=== PATIENT | male | born 1980 | race Two or more races ===

== ENCOUNTER 2019-06-10 12:42 | Outpatient (CLI) | payer OTHER | END 2019-06-10 12:43 | disposition home or self-care (01) | LOC: RT 12:42 | PROVIDERS: ATTEND Internal Medicine | DX: J44.9 Chronic obstructive pulmonary disease, unspecified (principal) | CPT/HCPCS: 94010 ==

== ENCOUNTER 2019-06-10 12:55 | Outpatient (CLI) | payer OTHER ==
--- NOTE | 2019-06-11 10:40 | XRAY Report ---
Reason: CHRONIC OBSTRUCTIVE PULMONARY DISEASE Procedure Date: 06/10/2019 Accession Number: [id number] / [id number] Procedure: XR - Chest 2 View X-Ray CPT Code: 28769 Final Report FULL RESULT: EXAM: CHEST RADIOGRAPHY EXAM DATE: 06/10/2019 02:32 PM. CLINICAL HISTORY: CHRONIC OBSTRUCTIVE PULMONARY DISEASE. Wheezing and crackling for 1 year, worse at night. COMPARISON: None. TECHNIQUE: 2 views. FINDINGS: Lungs/Pleura: No focal opacities evident. No peribronchial cuffing or interstitial abnormality. No pleural effusion. No pneumothorax. Normal volumes. Mediastinum: Heart and mediastinal contours are unremarkable. Other: None. IMPRESSION: Normal 2-view chest radiography. [facility]
== END 2019-06-10 12:56 | disposition home or self-care (01) ==
LOC: DI 12:55
PROVIDERS: ATTEND Internal Medicine
DX: J44.9 Chronic obstructive pulmonary disease, unspecified (principal)
CPT/HCPCS: 71046

== ENCOUNTER 2020-08-09 13:32 | Outpatient (CLI) | payer OTHER | END 2020-08-09 13:33 | disposition home or self-care (01) | LOC: COV 13:32 | PROVIDERS: ATTEND Family Medicine | DX: Z20.822 Contact with and (suspected) exposure to COVID-19 (principal) ==

== ENCOUNTER 2020-11-03 14:33 | Emergency (ER) | payer OTHER ==
[2020-11-03] MEDS ORDERED: KETOROLAC 60 MG/2 ML VIAL IM STA (14:49)
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
--- NOTE | 2020-11-03 15:16 | XRAY Report ---
PROCEDURE: Knee 3 View RT INDICATIONS: effusion;pain bilaterally after twisting TECHNIQUE: 3 views of the right knee(s) were acquired. COMPARISON: None. FINDINGS: Bones: No fractures or dislocations. No suspicious bony lesions. Soft tissues: Small suprapatellar joint effusion. No suspicious soft tissue calcifications. IMPRESSION: Small suprapatellar joint effusion, no acute trauma found to the osseous structures. Int ernal derangement may be present, follow-up by MR scanning may become necessary. Reviewed by: Tony Damian MD on 11/03/2020 3:14 PM PDT Approved by: Tony Damian MD on 11/03/2020 3:14 PM PDT Station ID: [id number]
[2020-11-03 15:38] VITALS: BP 109/77
== END 2020-11-03 15:40 | disposition home or self-care (01) ==
LOC: ED 14:33
DX: S83.91XA Sprain of unspecified site of right knee, initial encounter (principal); V18.0XXA Pedal cycle driver injured in noncollision transport accident in nontraffic accident, initial encounter; Y93.55 Activity, bike riding; Y92.830 Public park as the place of occurrence of the external cause; F17.200 Nicotine dependence, unspecified, uncomplicated
CPT/HCPCS: 96372; 99283

== ENCOUNTER 2021-04-13 15:35 | Outpatient (CLI) | payer OTHER | END 2021-04-13 15:36 | disposition critical access hospital (66) | LOC: EMS 15:35 | DX: R44.8 Other symptoms and signs involving general sensations and perceptions (principal) | CPT/HCPCS: A0425; A0429 ==

== ENCOUNTER 2021-04-13 16:10 | Inpatient (IN) | payer OTHER, MEDICAID ==
--- NOTE | 2021-04-13 16:17 | ED Physician Documentation ---
History of Present Illness - Stated complaint Stated Complaint: INJURY - History obtained from History obtained from: EMS - Additonal information Additional information: 41-year-old gentleman presents by ambulance for odd behavior. Was reporting the acting very strange and running around neighborhoods and subsequently was sleeping in the grass. Admitted to EMS to the use of heroin and fentanyl. He is less responsive for me so minimal history available from the patient. Review of Systems Unable to obtain: Confused PD PAST MEDICAL HISTORY - Past Surgical History Past Surgical History: Yes - Present Medications Home Medications: Ambulatory Orders Medication Instructions Recorded Confirmed Home Medications Unobtainable 04/13/21 04/13/21 [HOME MEDICATIONS UNOBTAINABLE] - Allergies Allergies/Adverse Reactions: Allergies Allergy/AdvReac Type Severity Reaction Status Date / Time No Known Drug Allergies Allergy Verified 11/03/20 14:36 - Social History Does the pt smoke?: Yes Smoking Status: Current every day smoker Does the pt drink ETOH?: Yes Does the pt have substance abuse?: No - Immunizations Immunizations are current?: Yes - POLST Patient has POLST: No PD ED PE NORMAL - Vitals Vital signs reviewed: Yes - General General: Other (He is somnolent but twitchy at the same time. He will open his eyes and follow commands and state his name, otherwise is disoriented.) - HEENT HEENT: Other (Slightly small pupils but reactive, not pinpoint.) - Neck Neck: Supple, no meningeal sign, No bony TTP - Cardiac Cardiac: RRR, No murmur - Respiratory Respiratory: No respiratory distress, Clear bilaterally - Abdomen Abdomen: Normal bowel sounds, Soft, Non tender - Back Back: No CVA TTP, No spinal TTP - Derm Derm: Normal color, Warm and dry - Neuro Eye Opening: To Voice Motor: Obeys Commands Verbal: Confused GCS Score: 13 Results - Vitals Vitals: Vital Signs - 24 hr 04/13/21 04/13/21 04/13/21 16:17 17:00 18:05 Temperature 36.7 C Heart Rate 92 70 70 Respiratory 14 16 16 Rate Blood Pressure 115/76 122/78 116/79 O2 Saturation 100 98 98 04/13/21 18:12 Temperature Heart Rate 77 Respiratory 18 Rate Blood Pressure 116/79 O2 Saturation 98 Oxygen O2 Source Room air - EKG (time done) 1625 Rate: Rate (enter#) (82) Rhythm: NSR [place]: Normal Intervals: Normal [place]. No: Prolonged QT (432) QRS: Normal Computer interpretation: Agree with computer - Labs Labs: Laboratory Tests 04/13/21 04/13/21 04/13/21 16:23 16:23 16:23 WBC 9.8 RBC 4.41 L Hgb 13.7 L Hct 40.3 L MCV 91.4 MCH 31.1 H MCHC 34.0 RDW 12.5 Plt Count 306 MPV 8.9 Neut # (Auto) 8.8 H Lymph # (Auto) 0.5 L Hopkins # (Auto) 0.4 Eos # (Auto) 0.0 Baso # (Auto) 0.0 Absolute Nucleated RBC 0.00 Nucleated RBC % 0.0 Sodium 138 Potassium 3.5 Chloride 103 Carbon Dioxide 23 Anion Gap 12.0 BUN 18 Creatinine 0.8 Estimated GFR (MDRD) 106 Glucose 108 H Calcium 9.3 Total Bilirubin 1.9 H AST 32 ALT 20 Alkaline Phosphatase 64 Total Protein 7.6 Albumin 4.0 Globulin 3.6 Albumin/Globulin Ratio 1.1 Lipase 24 TSH 0.18 L Thyroxine (T4) Free T3 pg/mL Nasal Adenovirus (PCR) Nasal B. parapertussis DNA (PCR) Nasal Coronavir 229E PCR Nasal Coronavir HKU1 PCR Nasal Coronavir NL63 PCR Nasal Coronavir OC43 PCR Nasal Enterovir/Rhinovir PCR Nasal Influenza B PCR Nasal Influenza A PCR Nasal Parainfluen 1 PCR Nasal Parainfluen 2 PCR Nasal Parainfluen 3 PCR Nasal Parainfluen 4 PCR Nasal RSV (PCR) Nasal B.pertussis DNA PCR Nasal C.pneumoniae (PCR) Alejandro Human Metapneumo PCR Nasal M.pneumoniae (PCR) Nasal SARS-CoV-2 (PCR) Salicylates < 6.0 Acetaminophen < 10 L Ethyl Alcohol < 5.0 04/13/21 04/13/21 16:35 16:42 WBC RBC Hgb Hct MCV MCH MCHC RDW Plt Count MPV Neut # (Auto) Lymph # (Auto) Hopkins # (Auto) Eos # (Auto) Baso # (Auto) Absolute Nucleated RBC Nucleated RBC % Sodium Potassium Chloride Carbon Dioxide Anion Gap BUN Creatinine Estimated GFR (MDRD) Glucose Calcium Total Bilirubin AST ALT Alkaline Phosphatase Total Protein Albumin Globulin Albumin/Globulin Ratio Lipase TSH Thyroxine (T4) 9.95 Free T3 pg/mL 3.62 Nasal Adenovirus (PCR) NOT DETECTED Nasal B. parapertussis DNA (PCR) NOT DETECTED Nasal Coronavir 229E PCR NOT DETECTED Nasal Coronavir HKU1 PCR NOT DETECTED Nasal Coronavir NL63 PCR NOT DETECTED Nasal Coronavir OC43 PCR NOT DETECTED Nasal Enterovir/Rhinovir PCR NOT DETECTED Nasal Influenza B PCR NOT DETECTED Nasal Influenza A PCR NOT DETECTED Nasal Parainfluen 1 PCR NOT DETECTED Nasal Parainfluen 2 PCR NOT DETECTED Nasal Parainfluen 3 PCR NOT DETECTED Nasal Parainfluen 4 PCR NOT DETECTED Nasal RSV (PCR) NOT DETECTED Nasal B.pertussis DNA PCR NOT DETECTED Nasal C.pneumoniae (PCR) NOT DETECTED Alejandro Human Metapneumo PCR NOT DETECTED Nasal M.pneumoniae (PCR) NOT DETECTED Nasal SARS-CoV-2 (PCR) NOT DETECTED Salicylates Acetaminophen Ethyl Alcohol PD MEDICAL DECISION MAKING - ED course ED course: 41-year-old gentleman presents by ambulance with altered mental status, likely related to drug use. During the first few hours of his stay he started to look like he was going into narcotic withdrawal with increased twitchiness, vomiting. Complains of allover pain. No specific spots of pain. Pupils became dilated. He did become more responsive though. He is interested in going to detox tomorrow. Departure - Departure Clinical Impression: Substance abuse Drug overdose Qualifiers: Encounter type: initial encounter Injury intent: accidental or unintentional Qualified Code(s): T50.901A - Poisoning by unspecified drugs, medicaments and biological substances, accidental (unintentional), initial encounter Condition: Stable Record reviewed to determine appropriate education?: Yes Instructions: ED Drug Abuse General
[2021-04-13 16:27] LABS: BASOPHILS % (AUTO) 0.1 %; EOSINOPHILS % (AUTO) 0.1 %; HCT - HEMATOCRIT 40.3 % (42.0-52.0); HGB - HEMOGLOBIN 13.7 g/dL (14.0-18.0); LYMPHOCYTES # (AUTO) 0.5 10^3/uL (1.5-3.5); LYMPHOCYTES % (AUTO) 5.3 %; MEAN CORPUSCULAR HEMOGLOBIN 31.1 pg (27.0-31.0); MEAN CORPUSCULAR VOLUME 91.4 fL (80.0-94.0); MEAN PLATELET VOLUME 8.9 fL (7.4-11.4); MONOCYTES # (AUTO) 0.4 10^3/uL (0.0-1.0); MONOCYTES % (AUTO) 3.8 %; NEUTROPHILS # (AUTO) 8.8 10^3/uL (1.5-6.6); NEUTROPHILS % (AUTO) 90.4 %; PLT - PLATELET COUNT 306 10^3/uL (130-450); RED BLOOD COUNT 4.41 10^6/uL (4.70-6.10); RED CELL DISTRIBUTION WIDTH 12.5 % (12.0-15.0); WHITE BLOOD COUNT 9.8 x10^3/uL (4.8-10.8)
[2021-04-13 16:46] LABS: ACETAMINOPHEN < 10 ug/mL (10-30); ALBUMIN/GLOBULIN RATIO 1.1 (1.0-2.2); ALKALINE PHOSPHATASE 64 IU/L (42-121); ALT ALANINE AMINOTRANSFERASE 20 IU/L (10-60); AST ASPARTATE AMINOTRANSFERASE 32 IU/L (10-42); BILIRUBIN,TOTAL 1.9 mg/dL (0.2-1.0); BUN - BLOOD UREA NITROGEN 18 mg/dL (6-20); CALCIUM 9.3 mg/dL (8.5-10.3); CARBON DIOXIDE - CO2 23 mmol/L (21-32); CHLORIDE 103 mmol/L (101-111); CREATININE 0.8 mg/dL (0.6-1.2); ETOH - ETHANOL < 5.0 mg/dL; GFR - MDRD 106 (>89); GLUCOSE 108 mg/dL (70-100); LIPASE 24 U/L (22-51); POTASSIUM 3.5 mmol/L (3.5-5.0); SALICYLATE < 6.0 mg/dL; SODIUM 138 mmol/L (135-145); TOTAL PROTEIN 7.6 g/dL (6.7-8.2)
[2021-04-13 17:29] LABS: B. PARAPERTUSSIS- RESP PCR PAN NOT DETECTED; B. PERTUSSIS- RESP PCR PANEL NOT DETECTED; C. PNEUMONIAE- RESP PCR PANEL NOT DETECTED; CORONAVIRUS 229E-RESP PCR NOT DETECTED; CORONAVIRUS HKU1-RESP PCR NOT DETECTED; CORONAVIRUS NL63-RESP PCR NOT DETECTED; CORONAVIRUS OC43-RESP PCR NOT DETECTED; HUMAN METAPNEUMOVIRUS NOT DETECTED; INFLUENZA A- RESP PCR PANEL NOT DETECTED; INFLUENZA B - RESP PCR PANEL NOT DETECTED; M. PNEUMONIAE- RESP PCR PANEL NOT DETECTED; PARAINFLUENZA VIRUS 1 NOT DETECTED; PARAINFLUENZA VIRUS 2 NOT DETECTED; PARAINFLUENZA VIRUS 3 NOT DETECTED; PARAINFLUENZA VIRUS 4 NOT DETECTED; RHINOVIRUS/ENTEROVIRUS NOT DETECTED; RSV- RESP PCR PANEL NOT DETECTED; SARS-CoV-2 -RESP PCR PANEL NOT DETECTED
[2021-04-13 18:04] LABS: T4 (THYROXINE) 9.95 ug/dL (6.09-12.23)
[2021-04-13 18:08] LABS: FREE T3 3.62 pg/mL (2.5-3.9)
[2021-04-13] MEDS ORDERED: LORazepam 2 MG/ML VIAL IM STA (18:31)
[2021-04-13] MEDS ORDERED: ONDANSETRON 4 MG/2 ML VIAL IM STA (19:52)
[2021-04-13] MEDS ORDERED: PROMETHAZINE 12.5 MG SUPP PR STA (20:44)
[2021-04-13] MEDS ORDERED: PROMETHAZINE 25 MG/1 ML VIAL IM STA (20:50)
[2021-04-13] MEDS ORDERED: HALOPERIDOL 5 MG/ML VIAL IM STA (22:47)
--- NOTE | 2021-04-13 22:48 | ED Physician Documentation ---
ED Addendum - Addendum Addendum: 04/13/21 22:47 Patient has had nausea and intermittent agitation over the past couple hours, likely experiencing substance withdrawal. Tried zofran, promethazine without relief. Will trial haldol for antiemetic properties. patient agreeable. 04/13/21 22:55 Patient's called SYLVIE Benitez and confirmed he is on fentanyl, meth, heroin, has been on the streets the past couple days because she kicked him out. She also reported he may have told his mother he felt like taking his life. At baseline he also sometimes has hallucinations. patient is intoxicated at present, not endorsing SI/HI/AVH. will continue to monitor. 04/14/21 02:30 Patient with persistent agitation, difficulty redirecting. wandering the halls, taking clothes off. Offered and accepted oral versed however patient was still agitated and escalating with staff requiring physical restraint followed by chemical sedation with ketamine. will continue to monitor. 04/14/21 02:52 Patient still uncomfortable, intermittently struggling in restraints despite 10mg oral versed and 200mg IM ketamine. will give additional IM zyprexa. 04/14/21 02:59 04/14/21 05:32 Patient actively hallucinating, agitated. sedation appears to have worn off again. agitation refractory to verbal coaching and environmental modification. plan to provide IM ketamine 300IM. will obtain repeat bmp and ck, iv access given his heightened alertness all night. 04/14/21 06:41 Patient with elevated temp and CK. d/w poison control center in regards to hyperpyrexia. Tox agrees it sounds like classic meth rhabdomyolysis, less likely NMS or malignant hyperthermia. recommend we continue cooling ice, IVF, PRN benzodiazepines. d/w Dr. Lieberman, wireless communications engineer internal control specialist who recommends IV ativan and to consider giving double the dose each time redosing until patient has clinical response. 04/14/21 06:56 04/18/21 22:37 Dispo: admit to [facility] MICU Impression 1. acute rhabdomyolysis 2. polysubstance abuse
[2021-04-14] MEDS ORDERED: LORazepam 2 MG/ML VIAL IM STA (01:21)
[2021-04-14 01:29] LABS: MUDS CUTOFF CONCENTRATIONS CUTOFF CONC BELOW:
[2021-04-14 01:31] LABS: GLUCOSE, URINE (UA) NEGATIVE (NEGATIVE); KETONES,URINE (UA) >=80 mg/dL (NEGATIVE); LEUKOCYTE ESTERASE, URINE NEGATIVE (NEGATIVE); NITRITE,URINE NEGATIVE (NEGATIVE); OCCULT BLOOD,URINE NEGATIVE (NEGATIVE); PROTEIN,URINE TRACE mg/dL (NEGATIVE); UROBILINOGEN,URINE 1 (NORMAL) E.U./dL (NORMAL)
[2021-04-14 01:34] LABS: BILIRUBIN,URINE NEGATIVE (NEGATIVE); CLARITY,URINE CLEAR (CLEAR); ICTOTEST,URINE NEGATIVE
[2021-04-14 01:42] LABS: COCAINE SCREEN URINE POSITIVE (NEGATIVE)
[2021-04-14 01:43] LABS: AMPHETAMINE SCREEN,URINE POSITIVE (NEGATIVE); BARBITURATE SCREEN,UR NEGATIVE (NEGATIVE); BENZODIAZEPINES SCREEN, URINE NEGATIVE (NEGATIVE); METHADONE SCREEN, URINE NEGATIVE (NEGATIVE); METHAMPHETAMINES SCREEN, URINE POSITIVE (NEGATIVE); OPIATE SCREEN, URINE POSITIVE (NEGATIVE); OXYCODONE SCREEN, URINE NEGATIVE (NEGATIVE); PROPOXYPHENE SCREEN, URINE NEGATIVE (NEGATIVE); THC CANNABINOID SCREEN, URINE NEGATIVE (NEGATIVE); TRICYCLIC ANTIDEPRESSANT,URINE NEGATIVE (NEGATIVE)
[2021-04-14] MEDS ORDERED: MIDAZOLAM 10 MG/5 ML UDC PO STA (02:06)
[2021-04-14] MEDS ORDERED: KETAMINE 500 MG/10 ML VIAL IM STA ×3 (02:22→05:02)
[2021-04-14] MEDS ORDERED: KETAMINE 500 MG/10 ML VIAL ONE (02:27)
--- NOTE | 2021-04-14 02:30 | ED Physician Documentation ---
Face to Face for Restraints - Immediate Situation Face to Face Evaluation Date: 04/14/21 Face to Face Evaluation Time: 02:25 Restraint Situation: Physical Hold, Chemical Patient's Reactions to the Intervention: Physically safe, Resting quietly - Behavioral Condition Attitude: Guarded, Other (intoxicated, agitated) Behavior: Uncooperative, Agitated, Withdrawn Orientation: Not oriented to person, place, time, and situation Mood: Labile, Other (agitated) - Evaluation Review of Systems: Unable to obtain ROS 2/2 patient intoxication with methamphetamine Pertinent History/Illicit Drugs/Medications/Results: history of methamphetamine, cocaine, opiates - Plan Need to Continue or Terminate Violent or Chemical Restraint: Continue restraints, monitor patient.
[2021-04-14] MEDS ORDERED: OLANZapine 10 MG VIAL IM STA (02:59)
[2021-04-14] MEDS ORDERED: LORazepam 2 MG/ML VIAL IVP STA (05:53)
[2021-04-14] MEDS ORDERED: SODIUM CHLORIDE 0.9% 1,000 ML IV STA (05:54)
[2021-04-14 06:07] LABS: CALCIUM 9.5 mg/dL (8.5-10.3); CREATININE 1.1 mg/dL (0.6-1.2); POTASSIUM 3.9 mmol/L (3.5-5.0)
[2021-04-14] MEDS ORDERED: SODIUM CHLORIDE 0.9% 1,000 ML IV ONE (07:26)
[2021-04-14] MEDS ORDERED: ONDANSETRON 4 MG/2 ML VIAL IVP PRN (07:26)
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
[2021-04-14] MEDS: LORazepam 100MG/100ML D5W 100 ML IV SCH (09:05)
[2021-04-14] MEDS: SODIUM CHLORIDE 0.9% 1,000 ML IV SCH ×3 (10:05→22:23)
[2021-04-14] MEDS: SODIUM CHLORIDE FLUSH 0.9% 10 ML SYRINGE IVP SCH ×2 (10:11→18:11)
[2021-04-14] MEDS: NICOTINE 21 MG PATCH TOP SCH (20:11)
[2021-04-14] MEDS ORDERED: DEXMEDETOMIDINE 400 MCG/100 ML 100 ML IV SCH (21:00)
[2021-04-15] MEDS: SODIUM CHLORIDE FLUSH 0.9% 10 ML SYRINGE IVP SCH ×3 (02:26→17:43)
[2021-04-15] MEDS: LORazepam 100MG/100ML D5W 100 ML IV SCH (03:08)
[2021-04-15] MEDS: SODIUM CHLORIDE 0.9% 1,000 ML IV SCH ×3 (04:54→18:16)
[2021-04-15 06:14] LABS: BASOPHILS % (AUTO) 0.2 %; EOSINOPHILS % (AUTO) 0.2 %; HCT - HEMATOCRIT 43.8 % (42.0-52.0); HGB - HEMOGLOBIN 14.4 g/dL (14.0-18.0); LYMPHOCYTES # (AUTO) 1.3 10^3/uL (1.5-3.5); LYMPHOCYTES % (AUTO) 13.4 %; MEAN CORPUSCULAR HEMOGLOBIN 30.8 pg (27.0-31.0); MEAN CORPUSCULAR HGB CONC 32.9 g/dL (32.0-36.0); MEAN CORPUSCULAR VOLUME 93.8 fL (80.0-94.0); MONOCYTES # (AUTO) 0.8 10^3/uL (0.0-1.0); MONOCYTES % (AUTO) 8.1 %; NEUTROPHILS # (AUTO) 7.5 10^3/uL (1.5-6.6); NEUTROPHILS % (AUTO) 77.8 %; PLT - PLATELET COUNT 290 10^3/uL (130-450); RED BLOOD COUNT 4.67 10^6/uL (4.70-6.10); RED CELL DISTRIBUTION WIDTH 12.8 % (12.0-15.0); WHITE BLOOD COUNT 9.6 x10^3/uL (4.8-10.8)
[2021-04-15 06:33] LABS: CALCIUM 8.6 mg/dL (8.5-10.3); CREATININE 0.7 mg/dL (0.6-1.2); POTASSIUM 3.7 mmol/L (3.5-5.0)
--- NOTE | 2021-04-15 08:16 | PROVIDER PROGRESS NOTE ---
Assessment/Plan - Problem List (1) Intoxication by drug Assessment/Plan: Patient has been calmer today. He is currently on Ativan drip and sedate. However soft restraints are continued because he is intermittently agitated. He was also started on Precedex which had to be discontinued because of significant sinus bradycardia. Once medically stable patient would need to be evaluated by DCR for possible nesha cement at [facility] facility. (2) Rhabdomyolysis Assessment/Plan: Likely secondary to IV drug abuse. Toxicology was positive for methamphetamine, heroin and cocaine. This is likely further compounded by patient's agitative state. Creatine kinase was slightly worse today at 3200. We will continue IV hydration with normal saline at 150 mL/h. - Current Meds Current Meds: Current Medications Generic Name Dose Route Start Last Admin Trade Name Freq PRN Reason Stop Dose Admin Sodium Chloride 1,000 mls @ 150 mls/hr 04/14/21 08:00 04/15/21 07:00 Normal Saline 0.9% IV 150 mls/hr .Q6H40M BALTA Infusion Lorazepam 100 mls @ 0.794 mls/hr 04/14/21 09:00 04/15/21 07:00 Ativan IV 0.07 mg/kg/hr .Q72H BALTA 5.557 mls/hr Titration Protocol 0.01 MG/KG/HR Dexmedetomidine/Sodium Chloride 100 mls @ 3.7 mls/hr 04/14/21 21:00 04/15/21 05:55 Precedex Premix IV 0 mcg/kg/hr .Q27H2M BALTA 0 mls/hr Titration Protocol 0.2 MCG/KG/HR Nicotine 1 patch 04/14/21 20:02 04/14/21 20:11 Nicotine 21 Mg Patch TOP 1 patch DAILY BALTA Administration Sodium Chloride 10 ml 04/14/21 09:00 04/15/21 02:26 Sodium Chloride Flush 0.9% 10 Ml Syringe IVP Not Given 0100,0900,1700 BALTA - Lab Result Fish Bone Diagrams: 04/16/21 06:25 04/16/21 06:25 - Additional Planning My Orders: My Active Orders 04/14/21 07:26 Telemetry- [RC] Q4HR Ondansetron Inj [Zofran Inj] 4 mg IVP Q6HR PRN Sodium Chloride Flush 0.9% [Normal Saline Flush 0.9%] 10 ml IVP PRN PRN 04/14/21 07:27 Activity Orders [RC] Q2HR IO [RC] Q1H Initiate Bowel Care Protocol [RC] Q12H Initiate Flu Vaccine Screening [RC] ONCE Initiate Line Care Protocol [RC] QSHIFT Initiate Personal Care Protoco [RC] Q12H Initiate Pneumonia Vaccine Scr [RC] ONCE Vital Signs [RC] Q1H Code Status [OTHERS] Routine Condition of Patient [OTHERS] Routine DVT Prophylaxis [OTHERS] Routine 04/14/21 07:31 SCDs [RC] QSHIFT 04/14/21 08:00 Sodium Chloride 0.9% [Normal Saline 0.9%] 1,000 ml IV 150 mls/hr 04/14/21 09:00 LORazepam 100MG/100ML D5W [Ativan] 100 ml IV 0.01 mg/kg/hr Sodium Chloride Flush 0.9% [Normal Saline Flush 0.9%] 10 ml IVP 0100,0900,1700 04/14/21 10:06 Tobacco Cessation [RC] .ONCE 04/14/21 12:02 Initiate NonViolent Restraint [RC] .PerProtocol 04/16/21 05:00 BMP - BASIC METABOLIC PANEL [CHEM] DAILYLAB CBC - COMP BLD CT W/AUTO DIFF [HEME] DAILYLAB CK- CREATINE KINASE [CHEM] DAILYLAB 04/17/21 05:00 BMP - BASIC METABOLIC PANEL [CHEM] DAILYLAB CBC - COMP BLD CT W/AUTO DIFF [HEME] DAILYLAB CK- CREATINE KINASE [CHEM] DAILYLAB 04/18/21 05:00 BMP - BASIC METABOLIC PANEL [CHEM] DAILYLAB CBC - COMP BLD CT W/AUTO DIFF [HEME] DAILYLAB CK- CREATINE KINASE [CHEM] DAILYLAB 04/19/21 05:00 BMP - BASIC METABOLIC PANEL [CHEM] DAILYLAB CBC - COMP BLD CT W/AUTO DIFF [HEME] DAILYLAB Subjective - Subjective Patient Reports: Other (Has been much Colmer today. However he has been sleeping throughout the day. He is able to open his eyes to verbal stimuli but not able to respond to questions. He is still in soft restraints. He is also on sedation with Ativan.) Objective Vital Signs: Vital Signs - 24 hr 04/14/21 04/14/21 04/14/21 09:00 10:00 11:00 Temperature 37 C Heart Rate [ 99 82 81 Monitoring electrodes] Respiratory 29 H 26 H 22 Rate Blood Pressure 111/70 97/61 115/79 [Right Brachial artery] O2 Saturation 97 99 99 04/14/21 04/14/21 04/14/21 12:00 13:00 14:00 Temperature 36.9 C 37.7 C Heart Rate [ 70 72 68 Monitoring electrodes] Respiratory 24 24 22 Rate Blood Pressure 116/87 H 125/86 H 128/85 H [Right Brachial artery] O2 Saturation 100 100 100 04/14/21 04/14/21 04/14/21 15:00 16:00 17:00 Temperature 37.5 C Heart Rate [ 64 61 70 Monitoring electrodes] Respiratory 24 22 24 Rate Blood Pressure 124/77 117/79 120/84 H [Right Brachial artery] O2 Saturation 100 100 99 04/14/21 04/14/21 04/14/21 18:00 19:00 20:00 Temperature 37.3 C 37.3 C Heart Rate [ 96 87 76 Monitoring electrodes] Respiratory 30 H 26 H 30 H Rate Blood Pressure 106/78 114/78 131/82 H [Right Brachial artery] O2 Saturation 98 99 99 04/14/21 04/14/21 04/14/21 21:00 22:00 23:00 Temperature 36.9 C 37.9 C 36.2 C L Heart Rate [ 81 76 85 Monitoring electrodes] Respiratory 23 22 23 Rate Blood Pressure 112/78 120/82 H 137/93 H [Right Brachial artery] O2 Saturation 94 99 97 04/15/21 04/15/21 04/15/21 00:00 01:00 02:04 Temperature 37.6 C 37 C Heart Rate [ 55 L 62 65 Monitoring electrodes] Respiratory 21 31 H 25 H Rate Blood Pressure 128/86 H 108/63 100/87 H [Right Brachial artery] O2 Saturation 98 99 97 04/15/21 04/15/21 04/15/21 03:00 04:00 05:00 Temperature 36.5 C 36.6 C Heart Rate [ 81 45 L 44 L Monitoring electrodes] Respiratory 29 H 21 21 Rate Blood Pressure 121/82 H 116/56 L 117/59 L [Right Brachial artery] O2 Saturation 97 98 98 04/15/21 04/15/21 04/15/21 06:18 07:00 08:00 Temperature 36.2 C L Heart Rate [ 46 L 47 L 65 Monitoring electrodes] Respiratory 21 22 26 H Rate Blood Pressure 122/86 H 106/74 [Right Brachial artery] O2 Saturation 99 99 99 Oxygen O2 Source Room air I&O (Last 24 Hrs): Intake and Output Totals x24h 04/13/21 04/14/21 04/15/21 23:59 23:59 23:59 Intake Total 4072.574 1311.391 Output Total 1460 1350 Balance 2612.574 -38.609 General: Other (Somnolent. Sedated but opens eyes to verbal stimuli) HEENT: PERRLA, EOMI Neck: Supple, No JVD Neuro: Other (Sedate arousable to tactile stimuli, not oriented to place, time or reason,) Cardiovascular: Regular rate, No murmurs Respiratory: Chest non-tender, No respiratory distress, Breath sounds nml Abdomen: Normal bowel sounds, Soft, No tenderness Extremities: No clubbing, No cyanosis, No edema Comments/Notes: Extensive skin tattoos - Results Results: Laboratory Results WBC 9.6 x10^3/uL (4.8-10.8) 04/15/21 06:07 RBC 4.67 10^6/uL (4.70-6.10) L 04/15/21 06:07 Hgb 14.4 g/dL (14.0-18.0) 04/15/21 06:07 Hct 43.8 % (42.0-52.0) 04/15/21 06:07 MCV 93.8 fL (80.0-94.0) 04/15/21 06:07 MCH 30.8 pg (27.0-31.0) 04/15/21 06:07 MCHC 32.9 g/dL (32.0-36.0) 04/15/21 06:07 RDW 12.8 % (12.0-15.0) 04/15/21 06:07 Plt Count 290 10^3/uL (130-450) 04/15/21 06:07 MPV 9.0 fL (7.4-11.4) 04/15/21 06:07 Neut # (Auto) 7.5 10^3/uL (1.5-6.6) H 04/15/21 06:07 Lymph # (Auto) 1.3 10^3/uL (1.5-3.5) L 04/15/21 06:07 Bell # (Auto) 0.8 10^3/uL (0.0-1.0) 04/15/21 06:07 Eos # (Auto) 0.0 10^3/uL (0.0-0.7) 04/15/21 06:07 Baso # (Auto) 0.0 10^3/uL (0.0-0.1) 04/15/21 06:07 Absolute Nucleated RBC 0.00 x10^3/uL 04/15/21 06:07 Nucleated RBC % 0.0 /100WBC 04/15/21 06:07 Sodium 142 mmol/L (135-145) 04/15/21 06:07 Potassium 3.7 mmol/L (3.5-5.0) 04/15/21 06:07 Chloride 109 mmol/L (101-111) 04/15/21 06:07 Carbon Dioxide 23 mmol/L (21-32) 04/15/21 06:07 Anion Gap 10.0 (6-13) 04/15/21 06:07 BUN 13 mg/dL (6-20) 04/15/21 06:07 Creatinine 0.7 mg/dL (0.6-1.2) 04/15/21 06:07 Estimated GFR (MDRD) 123 (>89) 04/15/21 06:07 Glucose 110 mg/dL (70-100) H 04/15/21 06:07 Calcium 8.6 mg/dL (8.5-10.3) 04/15/21 06:07 Total Bilirubin 1.9 mg/dL (0.2-1.0) H 04/13/21 16:23 AST 32 IU/L (10-42) 04/13/21 16:23 ALT 20 IU/L (10-60) 04/13/21 16:23 Alkaline Phosphatase 64 IU/L (42-121) 04/13/21 16:23 Total Creatine Kinase 3205 IU/L (22-269) H* 04/15/21 06:07 Total Protein 7.6 g/dL (6.7-8.2) 04/13/21 16:23 Albumin 4.0 g/dL (3.2-5.5) 04/13/21 16:23 Globulin 3.6 g/dL (2.1-4.2) 04/13/21 16:23 Albumin/Globulin Ratio 1.1 (1.0-2.2) 04/13/21 16:23 Lipase 24 U/L (22-51) 04/13/21 16:23 TSH 0.18 uIU/mL (0.34-5.60) L 04/13/21 16:23 Thyroxine (T4) 9.95 ug/dL (6.09-12.23) 04/13/21 16:42 Free T3 pg/mL 3.62 pg/mL (2.5-3.9) 04/13/21 16:42 Urine Color DK. ORANGE 04/14/21 01:24 Urine Clarity CLEAR (CLEAR) 04/14/21 01:24 Urine pH 6.0 PH (5.0-7.5) 04/14/21 01:24 Ur Specific [place] >=1.030 (1.002-1.030) H 04/14/21 01:24 Urine Protein TRACE mg/dL (NEGATIVE) 04/14/21 01:24 Urine Glucose (UA) NEGATIVE mg/dL (NEGATIVE) 04/14/21 01:24 Urine Ketones >=80 mg/dL (NEGATIVE) H 04/14/21 01:24 Urine Occult Blood NEGATIVE (NEGATIVE) 04/14/21 01:24 Urine Nitrite NEGATIVE (NEGATIVE) 04/14/21 01:24 Urine Bilirubin NEGATIVE (NEGATIVE) 04/14/21 01:24 Urine Urobilinogen 1 (NORMAL) E.U./dL (NORMAL) 04/14/21 01:24 Ur Leukocyte Esterase NEGATIVE (NEGATIVE) 04/14/21 01:24 Ur Microscopic Review NOT INDICATED 04/14/21 01:24 Urine Culture Comments NOT INDICATED 04/14/21 01:24 Nasal Adenovirus (PCR) NOT DETECTED 04/13/21 16:35 Nasal B. parapertussis DNA (PCR) NOT DETECTED 04/13/21 16:35 Nasal Coronavir 229E PCR NOT DETECTED 04/13/21 16:35 Nasal Coronavir HKU1 PCR NOT DETECTED 04/13/21 16:35 Nasal Coronavir NL63 PCR NOT DETECTED 04/13/21 16:35 Nasal Coronavir OC43 PCR NOT DETECTED 04/13/21 16:35 Nasal Enterovir/Rhinovir PCR NOT DETECTED 04/13/21 16:35 Nasal Influenza B PCR NOT DETECTED 04/13/21 16:35 Nasal Influenza A PCR NOT DETECTED 04/13/21 16:35 Nasal Parainfluen 1 PCR NOT DETECTED 04/13/21 16:35 Nasal Parainfluen 2 PCR NOT DETECTED 04/13/21 16:35 Nasal Parainfluen 3 PCR NOT DETECTED 04/13/21 16:35 Nasal Parainfluen 4 PCR NOT DETECTED 04/13/21 16:35 Nasal RSV (PCR) NOT DETECTED 04/13/21 16:35 Nasal Screen MRSA (PCR) NEGATIVE (NEGATIVE) 04/14/21 08:20 Nasal B.pertussis DNA PCR NOT DETECTED 04/13/21 16:35 Nasal C.pneumoniae (PCR) NOT DETECTED 04/13/21 16:35 Alejandro Human Metapneumo PCR NOT DETECTED 04/13/21 16:35 Nasal M.pneumoniae (PCR) NOT DETECTED 04/13/21 16:35 Nasal SARS-CoV-2 (PCR) NOT DETECTED 04/13/21 16:35 Salicylates < 6.0 mg/dL 04/13/21 16:23 Urine Opiates Screen POSITIVE (NEGATIVE) H 04/14/21 01:24 Ur Oxycodone Screen NEGATIVE (NEGATIVE) 04/14/21 01:24 Urine Methadone Screen NEGATIVE (NEGATIVE) 04/14/21 01:24 Ur Propoxyphene Screen NEGATIVE (NEGATIVE) 04/14/21 01:24 Acetaminophen < 10 ug/mL (10-30) L 04/13/21 16:23 Ur Barbiturates Screen NEGATIVE (NEGATIVE) 04/14/21 01:24 Ur Tricyclics Screen NEGATIVE (NEGATIVE) 04/14/21 01:24 Ur Phencyclidine Scrn NEGATIVE (NEGATIVE) 04/14/21 01:24 Ur Amphetamine Screen POSITIVE (NEGATIVE) H 04/14/21 01:24 U Methamphetamines Scrn POSITIVE (NEGATIVE) H 04/14/21 01:24 U Benzodiazepines Scrn NEGATIVE (NEGATIVE) 04/14/21 01:24 Urine Cocaine Screen POSITIVE (NEGATIVE) H 04/14/21 01:24 U Cannabinoids Screen NEGATIVE (NEGATIVE) 04/14/21 01:24 Ethyl Alcohol < 5.0 mg/dL 04/13/21 16:23 ABX Reporting Has patient been on IV antibiotics over the past 48 hours?: No
[2021-04-15] MEDS: NICOTINE 21 MG PATCH TOP SCH (09:12)
[2021-04-16] MEDS: LORazepam 100MG/100ML D5W 100 ML IV SCH ×2 (00:35→14:41)
[2021-04-16] MEDS: SODIUM CHLORIDE FLUSH 0.9% 10 ML SYRINGE IVP SCH ×3 (01:00→18:08)
[2021-04-16] MEDS: SODIUM CHLORIDE 0.9% 1,000 ML IV SCH ×4 (01:45→21:14)
[2021-04-16 06:55] LABS: BASOPHILS % (AUTO) 0.2 %; EOSINOPHILS % (AUTO) 0.1 %; HCT - HEMATOCRIT 39.4 % (42.0-52.0); HGB - HEMOGLOBIN 13.2 g/dL (14.0-18.0); LYMPHOCYTES # (AUTO) 1.1 10^3/uL (1.5-3.5); MEAN CORPUSCULAR HEMOGLOBIN 30.8 pg (27.0-31.0); MEAN CORPUSCULAR HGB CONC 33.5 g/dL (32.0-36.0); MEAN CORPUSCULAR VOLUME 92.1 fL (80.0-94.0); MEAN PLATELET VOLUME 9.2 fL (7.4-11.4); MONOCYTES # (AUTO) 0.7 10^3/uL (0.0-1.0); MONOCYTES % (AUTO) 7.3 %; NEUTROPHILS # (AUTO) 7.1 10^3/uL (1.5-6.6); NEUTROPHILS % (AUTO) 80.1 %; PLT - PLATELET COUNT 352 10^3/uL (130-450); RED BLOOD COUNT 4.28 10^6/uL (4.70-6.10); RED CELL DISTRIBUTION WIDTH 12.8 % (12.0-15.0); WHITE BLOOD COUNT 8.9 x10^3/uL (4.8-10.8)
[2021-04-16 07:21] LABS: CALCIUM 8.7 mg/dL (8.5-10.3); CREATININE 0.6 mg/dL (0.6-1.2); POTASSIUM 2.9 mmol/L (3.5-5.0)
[2021-04-16] MEDS ORDERED: SODIUM CHLORIDE 0.9% 500 ML IV ONE (07:35)
--- NOTE | 2021-04-16 07:43 | PROVIDER PROGRESS NOTE ---
Assessment/Plan - Problem List (1) Intoxication by drug Assessment/Plan: Continue Ativan drip. Plan would be to start titrating Ativan drip down to and wean off at midnight today. Continue soft restraints. DCR to evaluate patient tomorrow if creatinine kinase is lower. (2) Rhabdomyolysis Assessment/Plan: Likely secondary to IV drug abuse. Toxicology was positive for methamphetamine, heroin and cocaine. This is likely further compounded by patient's agitative state. Creatine kinase trend: 2752->3205->3584 500 bolus of normal saline administered. Continue normal saline at 150 mL/h afterwards. (3) Hypokalemia Assessment/Plan: Will replace and recheck. - Current Meds Current Meds: Current Medications Generic Name Dose Route Start Last Admin Trade Name Freq PRN Reason Stop Dose Admin Sodium Chloride 1,000 mls @ 150 mls/hr 04/14/21 08:00 04/16/21 06:00 Normal Saline 0.9% IV 150 mls/hr .Q6H40M BALTA Infusion Lorazepam 100 mls @ 0.794 mls/hr 04/14/21 09:00 04/16/21 06:55 Ativan IV 0.04 mg/kg/hr .Q72H BALTA 3 mls/hr Titration Protocol 0.01 MG/KG/HR Nicotine 1 patch 04/14/21 20:02 04/15/21 09:12 Nicotine 21 Mg Patch TOP 1 patch DAILY BALTA Administration Sodium Chloride 10 ml 04/14/21 09:00 04/16/21 01:00 Sodium Chloride Flush 0.9% 10 Ml Syringe IVP 10 ml 0100,0900,1700 BALTA Administration - Lab Result Fish Bone Diagrams: 04/16/21 06:25 04/16/21 06:25 - Additional Planning My Orders: My Active Orders 04/15/21 12:00 Initiate NonViolent Restraint [RC] .PerProtocol 04/16/21 07:35 0.9% NS 500ML BOLUS X1 Sodium Chloride 0.9% [Normal Saline 0.9%] 500 ml IV ONCE 04/16/21 07:36 MAGNESIUM [CHEM] Stat 04/16/21 07:37 Initiate ICU Electrolyte Prot. [RC] QSHIFT 04/16/21 08:00 Potassium Chloride/Water 10 mEq/100 mL q1h (Enter # of bags) Potassium Chlor 10 Meq/100 ml [Potassium Chloride] 10 meq in 100 ml IV Q1H 04/17/21 05:00 BMP - BASIC METABOLIC PANEL [CHEM] DAILYLAB CBC - COMP BLD CT W/AUTO DIFF [HEME] DAILYLAB CK- CREATINE KINASE [CHEM] DAILYLAB 04/18/21 05:00 BMP - BASIC METABOLIC PANEL [CHEM] DAILYLAB CBC - COMP BLD CT W/AUTO DIFF [HEME] DAILYLAB CK- CREATINE KINASE [CHEM] DAILYLAB 04/19/21 05:00 BMP - BASIC METABOLIC PANEL [CHEM] DAILYLAB CBC - COMP BLD CT W/AUTO DIFF [HEME] DAILYLAB Subjective - Subjective Patient Reports: Other (Somnolent with intermittent agitation. He will open his eyes to verbal stimuli. He continues to be in soft restraints and is on sedation with Ativan) Objective Vital Signs: Vital Signs - 24 hr 04/15/21 04/15/21 04/15/21 08:00 09:00 10:00 Temperature 36.2 C L Heart Rate [ 65 50 L 53 L Monitoring electrodes] Respiratory 26 H 21 26 H Rate Blood Pressure [Left brachial artery] Blood Pressure 109/74 149/86 H 114/81 H [Right Brachial artery] O2 Saturation 99 100 100 04/15/21 04/15/21 04/15/21 11:00 12:00 13:00 Temperature 36.8 C Heart Rate [ 69 60 48 L Monitoring electrodes] Respiratory 23 24 22 Rate Blood Pressure [Left brachial artery] Blood Pressure 121/71 110/73 148/79 H [Right Brachial artery] O2 Saturation 100 100 100 04/15/21 04/15/21 04/15/21 14:00 15:00 16:00 Temperature 36.8 C Heart Rate [ 66 57 L 48 L Monitoring electrodes] Respiratory 23 26 H 28 H Rate Blood Pressure [Left brachial artery] Blood Pressure 139/89 H 114/73 115/75 [Right Brachial artery] O2 Saturation 100 100 99 04/15/21 04/15/21 04/15/21 17:00 18:00 19:00 Temperature Heart Rate [ 66 55 L 60 Monitoring electrodes] Respiratory 26 H 30 H 28 H Rate Blood Pressure [Left brachial artery] Blood Pressure 111/75 99/59 L 132/76 H [Right Brachial artery] O2 Saturation 100 100 100 04/15/21 04/15/21 04/15/21 19:53 20:06 21:00 Temperature 37.2 C Heart Rate [ 82 48 L Monitoring electrodes] Respiratory 18 28 H Rate Blood Pressure 122/65 135/80 H [Left brachial artery] Blood Pressure [Right Brachial artery] O2 Saturation 100 04/15/21 04/15/21 04/16/21 22:00 23:00 00:00 Temperature 37.2 C Heart Rate [ 48 L 53 L 95 Monitoring electrodes] Respiratory 29 H 23 28 H Rate Blood Pressure 125/75 128/75 101/72 [Left brachial artery] Blood Pressure [Right Brachial artery] O2 Saturation 100 04/16/21 04/16/21 04/16/21 01:00 02:00 03:00 Temperature Heart Rate [ 71 70 55 L Monitoring electrodes] Respiratory 26 H 20 24 Rate Blood Pressure 112/78 123/79 [Left brachial artery] Blood Pressure [Right Brachial artery] O2 Saturation 100 93 100 04/16/21 04/16/21 04/16/21 04:00 05:00 06:00 Temperature Heart Rate [ 54 L 52 L 83 Monitoring electrodes] Respiratory 26 H 26 H 32 H Rate Blood Pressure 128/81 H 123/74 107/72 [Left brachial artery] Blood Pressure [Right Brachial artery] O2 Saturation 100 100 99 04/16/21 07:00 Temperature Heart Rate [ 53 L Monitoring electrodes] Respiratory 25 H Rate Blood Pressure 120/78 [Left brachial artery] Blood Pressure [Right Brachial artery] O2 Saturation 100 Oxygen O2 Source Room air I&O (Last 24 Hrs): Intake and Output Totals x24h 04/14/21 04/15/21 04/16/21 23:59 23:59 23:59 Intake Total 4072.574 4476.355 954.233 Output Total 1460 1920 250 Balance 2612.574 2556.355 704.233 General: Other Comments/Notes: General: Other (Somnolent. Sedated but opens eyes to verbal stimuli) HEENT: PERRLA, EOMI Neck: Supple, No JVD Neuro: Other (Sedate arousable to tactile stimuli, not oriented to place, time or reason,) Cardiovascular: Regular rate, No murmurs Respiratory: Chest non-tender, No respiratory distress, Breath sounds nml Abdomen: Normal bowel sounds, Soft, No tenderness Extremities: No clubbing, No cyanosis, No edema Comments/Notes: - Results Results: Laboratory Results WBC 8.9 x10^3/uL (4.8-10.8) 04/16/21 06:25 RBC 4.28 10^6/uL (4.70-6.10) L 04/16/21 06:25 Hgb 13.2 g/dL (14.0-18.0) L 04/16/21 06:25 Hct 39.4 % (42.0-52.0) L 04/16/21 06:25 MCV 92.1 fL (80.0-94.0) 04/16/21 06:25 MCH 30.8 pg (27.0-31.0) 04/16/21 06:25 MCHC 33.5 g/dL (32.0-36.0) 04/16/21 06:25 RDW 12.8 % (12.0-15.0) 04/16/21 06:25 Plt Count 352 10^3/uL (130-450) 04/16/21 06:25 MPV 9.2 fL (7.4-11.4) 04/16/21 06:25 Neut # (Auto) 7.1 10^3/uL (1.5-6.6) H 04/16/21 06:25 Lymph # (Auto) 1.1 10^3/uL (1.5-3.5) L 04/16/21 06:25 Sharkey # (Auto) 0.7 10^3/uL (0.0-1.0) 04/16/21 06:25 Eos # (Auto) 0.0 10^3/uL (0.0-0.7) 04/16/21 06:25 Baso # (Auto) 0.0 10^3/uL (0.0-0.1) 04/16/21 06:25 Absolute Nucleated RBC 0.00 x10^3/uL 04/16/21 06:25 Nucleated RBC % 0.0 /100WBC 04/16/21 06:25 Sodium 144 mmol/L (135-145) 04/16/21 06:25 Potassium 2.9 mmol/L (3.5-5.0) L 04/16/21 06:25 Chloride 109 mmol/L (101-111) 04/16/21 06:25 Carbon Dioxide 22 mmol/L (21-32) 04/16/21 06:25 Anion Gap 13.0 (6-13) 04/16/21 06:25 BUN 7 mg/dL (6-20) 04/16/21 06:25 Creatinine 0.6 mg/dL (0.6-1.2) 04/16/21 06:25 Estimated GFR (MDRD) 147 (>89) 04/16/21 06:25 Glucose 106 mg/dL (70-100) H 04/16/21 06:25 Calcium 8.7 mg/dL (8.5-10.3) 04/16/21 06:25 Total Bilirubin 1.9 mg/dL (0.2-1.0) H 04/13/21 16:23 AST 32 IU/L (10-42) 04/13/21 16:23 ALT 20 IU/L (10-60) 04/13/21 16:23 Alkaline Phosphatase 64 IU/L (42-121) 04/13/21 16:23 Total Creatine Kinase 3584 IU/L (22-269) H* 04/16/21 06:25 Total Protein 7.6 g/dL (6.7-8.2) 04/13/21 16:23 Albumin 4.0 g/dL (3.2-5.5) 04/13/21 16:23 Globulin 3.6 g/dL (2.1-4.2) 04/13/21 16:23 Albumin/Globulin Ratio 1.1 (1.0-2.2) 04/13/21 16:23 Lipase 24 U/L (22-51) 04/13/21 16:23 TSH 0.18 uIU/mL (0.34-5.60) L 04/13/21 16:23 Thyroxine (T4) 9.95 ug/dL (6.09-12.23) 04/13/21 16:42 Free T3 pg/mL 3.62 pg/mL (2.5-3.9) 04/13/21 16:42 Urine Color DK. ORANGE 04/14/21 01:24 Urine Clarity CLEAR (CLEAR) 04/14/21 01:24 Urine pH 6.0 PH (5.0-7.5) 04/14/21 01:24 Ur Specific [place] >=1.030 (1.002-1.030) H 04/14/21 01:24 Urine Protein TRACE mg/dL (NEGATIVE) 04/14/21 01:24 Urine Glucose (UA) NEGATIVE mg/dL (NEGATIVE) 04/14/21 01:24 Urine Ketones >=80 mg/dL (NEGATIVE) H 04/14/21 01:24 Urine Occult Blood NEGATIVE (NEGATIVE) 04/14/21 01:24 Urine Nitrite NEGATIVE (NEGATIVE) 04/14/21 01:24 Urine Bilirubin NEGATIVE (NEGATIVE) 04/14/21 01:24 Urine Urobilinogen 1 (NORMAL) E.U./dL (NORMAL) 04/14/21 01:24 Ur Leukocyte Esterase NEGATIVE (NEGATIVE) 04/14/21 01:24 Ur Microscopic Review NOT INDICATED 04/14/21 01:24 Urine Culture Comments NOT INDICATED 04/14/21 01:24 Nasal Adenovirus (PCR) NOT DETECTED 04/13/21 16:35 Nasal B. parapertussis DNA (PCR) NOT DETECTED 04/13/21 16:35 Nasal Coronavir 229E PCR NOT DETECTED 04/13/21 16:35 Nasal Coronavir HKU1 PCR NOT DETECTED 04/13/21 16:35 Nasal Coronavir NL63 PCR NOT DETECTED 04/13/21 16:35 Nasal Coronavir OC43 PCR NOT DETECTED 04/13/21 16:35 Nasal Enterovir/Rhinovir PCR NOT DETECTED 04/13/21 16:35 Nasal Influenza B PCR NOT DETECTED 04/13/21 16:35 Nasal Influenza A PCR NOT DETECTED 04/13/21 16:35 Nasal Parainfluen 1 PCR NOT DETECTED 04/13/21 16:35 Nasal Parainfluen 2 PCR NOT DETECTED 04/13/21 16:35 Nasal Parainfluen 3 PCR NOT DETECTED 04/13/21 16:35 Nasal Parainfluen 4 PCR NOT DETECTED 04/13/21 16:35 Nasal RSV (PCR) NOT DETECTED 04/13/21 16:35 Nasal Screen MRSA (PCR) NEGATIVE (NEGATIVE) 04/14/21 08:20 Nasal B.pertussis DNA PCR NOT DETECTED 04/13/21 16:35 Nasal C.pneumoniae (PCR) NOT DETECTED 04/13/21 16:35 Alejandro Human Metapneumo PCR NOT DETECTED 04/13/21 16:35 Nasal M.pneumoniae (PCR) NOT DETECTED 04/13/21 16:35 Nasal SARS-CoV-2 (PCR) NOT DETECTED 04/13/21 16:35 Salicylates < 6.0 mg/dL 04/13/21 16:23 Urine Opiates Screen POSITIVE (NEGATIVE) H 04/14/21 01:24 Ur Oxycodone Screen NEGATIVE (NEGATIVE) 04/14/21 01:24 Urine Methadone Screen NEGATIVE (NEGATIVE) 04/14/21 01:24 Ur Propoxyphene Screen NEGATIVE (NEGATIVE) 04/14/21 01:24 Acetaminophen < 10 ug/mL (10-30) L 04/13/21 16:23 Ur Barbiturates Screen NEGATIVE (NEGATIVE) 04/14/21 01:24 Ur Tricyclics Screen NEGATIVE (NEGATIVE) 04/14/21 01:24 Ur Phencyclidine Scrn NEGATIVE (NEGATIVE) 04/14/21 01:24 Ur Amphetamine Screen POSITIVE (NEGATIVE) H 04/14/21 01:24 U Methamphetamines Scrn POSITIVE (NEGATIVE) H 04/14/21 01:24 U Benzodiazepines Scrn NEGATIVE (NEGATIVE) 04/14/21 01:24 Urine Cocaine Screen POSITIVE (NEGATIVE) H 04/14/21 01:24 U Cannabinoids Screen NEGATIVE (NEGATIVE) 04/14/21 01:24 Ethyl Alcohol < 5.0 mg/dL 04/13/21 16:23 ABX Reporting Has patient been on IV antibiotics over the past 48 hours?: No
[2021-04-16] MEDS: NICOTINE 21 MG PATCH TOP SCH (07:52)
[2021-04-16] MEDS: POTASSIUM CHLOR 10 MEQ/100 ML 10 MEQ/100 ML BAG IV SCH ×9 (07:52→22:49)
[2021-04-16] MEDS ORDERED: OLANZapine 10 MG VIAL IM ONE (17:48)
[2021-04-17] MEDS: POTASSIUM CHLOR 10 MEQ/100 ML 10 MEQ/100 ML BAG IV SCH ×3 (00:08→02:32)
[2021-04-17] MEDS: SODIUM CHLORIDE FLUSH 0.9% 10 ML SYRINGE IVP SCH ×3 (02:32→17:30)
[2021-04-17] MEDS: SODIUM CHLORIDE 0.9% 1,000 ML IV SCH ×4 (03:56→23:51)
[2021-04-17 05:27] LABS: BASOPHILS % (AUTO) 0.2 %; EOSINOPHILS % (AUTO) 0.2 %; HCT - HEMATOCRIT 40.5 % (42.0-52.0); HGB - HEMOGLOBIN 13.5 g/dL (14.0-18.0); LYMPHOCYTES # (AUTO) 1.1 10^3/uL (1.5-3.5); LYMPHOCYTES % (AUTO) 12.7 %; MEAN CORPUSCULAR HEMOGLOBIN 30.5 pg (27.0-31.0); MEAN CORPUSCULAR HGB CONC 33.3 g/dL (32.0-36.0); MEAN CORPUSCULAR VOLUME 91.6 fL (80.0-94.0); MEAN PLATELET VOLUME 9.1 fL (7.4-11.4); MONOCYTES # (AUTO) 0.7 10^3/uL (0.0-1.0); NEUTROPHILS # (AUTO) 7.1 10^3/uL (1.5-6.6); NEUTROPHILS % (AUTO) 78.6 %; PLT - PLATELET COUNT 327 10^3/uL (130-450); RED BLOOD COUNT 4.42 10^6/uL (4.70-6.10); RED CELL DISTRIBUTION WIDTH 12.7 % (12.0-15.0)
[2021-04-17 05:34] LABS: CALCIUM, IONIZED 1.05 mmol/L (1.15-1.33); VBG PH 7.526 (7.31-7.41)
[2021-04-17 05:56] LABS: BUN - BLOOD UREA NITROGEN < 5 mg/dL (6-20); CALCIUM 8.5 mg/dL (8.5-10.3); CARBON DIOXIDE - CO2 24 mmol/L (21-32); CHLORIDE 107 mmol/L (101-111); CREATININE 0.5 mg/dL (0.6-1.2); GFR - MDRD 181 (>89); GLUCOSE 120 mg/dL (70-100); POTASSIUM 3.3 mmol/L (3.5-5.0); SODIUM 142 mmol/L (135-145)
[2021-04-17 05:59] LABS: MAGNESIUM 1.9 mg/dL (1.7-2.8); PHOSPHORUS 2.1 mg/dL (2.5-4.6)
[2021-04-17 06:07] LABS: CK- CREATINE KINASE 4569 IU/L (22-269)
[2021-04-17] MEDS ORDERED: CALCIUM GLUCONATE 1,000 MG in SODIUM CHLORIDE 0.9% 50 ML IV ONE (06:17)
[2021-04-17] MEDS: POTASSIUM CHLORIDE 20 MEQ TABLET PO SCH ×2 (06:57→10:39)
[2021-04-17] MEDS ORDERED: MAGNESIUM SULFATE 2 GRAM 2 GM/50 ML BAG IV ONE (08:07)
--- NOTE | 2021-04-17 08:09 | PROVIDER PROGRESS NOTE ---
Assessment/Plan - Problem List (1) Intoxication by drug Assessment/Plan: Ativan drip was weaned off this morning. Patient is intermittently agitated/belligerent and somnolent Continue soft restraints. 1:1 Obs ordered DCR to evaluate patient tomorrow if creatinine kinase is lower. (2) Rhabdomyolysis Assessment/Plan: Likely secondary to IV drug abuse. Toxicology was positive for methamphetamine, heroin and cocaine. This is likely further compounded by patient's agitative state. Creatine kinase trend: 2752->3205->3584->4569 Continue normal saline at 150 mL/h afterwards. (3) Hypokalemia Assessment/Plan: Will replace and recheck. - Current Meds Current Meds: Current Medications Generic Name Dose Route Start Last Admin Trade Name Freq PRN Reason Stop Dose Admin Sodium Chloride 1,000 mls @ 150 mls/hr 04/14/21 08:00 04/17/21 06:00 Normal Saline 0.9% IV 150 mls/hr .Q6H40M [facility] Infusion Lorazepam 100 mls @ 0.794 mls/hr 04/14/21 09:00 04/17/21 06:56 Ativan IV Infused .Q72H [facility] Titration Protocol 0.01 MG/KG/HR Nicotine 1 patch 04/14/21 20:02 04/16/21 07:52 Nicotine 21 Mg Patch TOP 1 patch DAILY [facility] Administration Potassium Chloride 20 meq 04/17/21 07:00 04/17/21 06:57 Potassium Chloride 20 Meq Tablet PO 04/17/21 09:01 20 meq Q2H [facility] Administration Protocol Sodium Chloride 10 ml 04/14/21 09:00 04/17/21 02:32 Sodium Chloride Flush 0.9% 10 Ml Syringe IVP 10 ml 0100,0900,1700 [facility] Administration - Lab Result Fish Bone Diagrams: 04/17/21 05:17 04/17/21 05:17 - Additional Planning My Orders: My Active Orders 04/16/21 07:37 Initiate ICU Electrolyte Prot. [RC] QSHIFT 04/17/21 07:00 Potassium Chloride [K-Dur] 20 meq PO Q2H 04/17/21 08:00 Neutra-Phos [K-Phos Neutral] 250 mg PO Q2H 04/17/21 08:07 MAGNESIUM SULFATE 2 GRAMS IV X1 Magnesium Sulfate 2 Gram [Magnesium Sulfate] 2 gm in 50 ml IV ONCE 04/18/21 05:00 BMP - BASIC METABOLIC PANEL [CHEM] DAILYLAB CALCIUM, IONIZED ([facility]) [BG] DAILYLAB CBC - COMP BLD CT W/AUTO DIFF [HEME] DAILYLAB CK- CREATINE KINASE [CHEM] DAILYLAB MAGNESIUM [CHEM] DAILYLAB PHOSPHORUS [CHEM] DAILYLAB 04/19/21 05:00 BMP - BASIC METABOLIC PANEL [CHEM] DAILYLAB CALCIUM, IONIZED ([facility]) [BG] DAILYLAB CBC - COMP BLD CT W/AUTO DIFF [HEME] DAILYLAB MAGNESIUM [CHEM] DAILYLAB PHOSPHORUS [CHEM] DAILYLAB Subjective - Subjective Patient Reports: Other (He slept for most of the morning but then woke up around noon and became significantly agitated. His agitation escalates intermittently. During those times he is verbally abusive to staff and spits caregivers) Objective Vital Signs: Vital Signs - 24 hr 04/16/21 04/16/21 04/16/21 09:00 10:00 11:00 Temperature Heart Rate [ 46 L 67 55 L Monitoring electrodes] Respiratory 23 16 22 Rate Blood Pressure 105/58 L 122/76 148/94 H [Left brachial artery] O2 Saturation 100 100 100 04/16/21 04/16/21 04/16/21 12:00 13:00 14:00 Temperature 37.4 C Heart Rate [ 51 L 53 L 66 Monitoring electrodes] Respiratory 24 24 26 H Rate Blood Pressure 141/93 H 130/87 H 110/62 [Left brachial artery] O2 Saturation 100 100 100 04/16/21 04/16/21 04/16/21 15:00 16:00 17:00 Temperature 36.8 C Heart Rate [ 60 50 L 47 L Monitoring electrodes] Respiratory 25 H 22 20 Rate Blood Pressure 112/75 117/79 115/78 [Left brachial artery] O2 Saturation 100 100 98 04/16/21 04/16/21 04/16/21 18:00 19:00 20:00 Temperature 37 C Heart Rate [ 41 L 52 L 54 L Monitoring electrodes] Respiratory 23 22 25 H Rate Blood Pressure 116/83 H 118/102 H [Left brachial artery] O2 Saturation 100 100 04/16/21 04/16/21 04/16/21 20:48 22:00 23:00 Temperature Heart Rate [ 46 L 75 48 L Monitoring electrodes] Respiratory 17 25 H 26 H Rate Blood Pressure 122/78 141/82 H 118/72 [Left brachial artery] O2 Saturation 04/17/21 04/17/21 04/17/21 00:00 01:00 02:00 Temperature 37.3 C Heart Rate [ 42 L 62 52 L Monitoring electrodes] Respiratory 28 H 28 H 23 Rate Blood Pressure 111/76 111/76 106/72 [Left brachial artery] O2 Saturation 99 04/17/21 04/17/21 04/17/21 03:02 04:00 05:00 Temperature 36.9 C Heart Rate [ 62 66 61 Monitoring electrodes] Respiratory 25 H 19 12 Rate Blood Pressure 116/78 116/83 H 122/88 H [Left brachial artery] O2 Saturation 99 04/17/21 04/17/21 06:00 07:00 Temperature Heart Rate [ 50 L 70 Monitoring electrodes] Respiratory 21 22 Rate Blood Pressure 134/106 H [Left brachial artery] O2 Saturation 99 Oxygen O2 Source Room air I&O (Last 24 Hrs): Intake and Output Totals x24h 04/15/21 04/16/21 04/17/21 23:59 23:59 23:59 Intake Total 4476.355 4872.000 1374.350 Output Total 1130 814 9762 Balance 2556.355 4221.000 -440.650 General: Other (Intermittently agitated/ somnolent. Belligerent during periods of awakeness) HEENT: PERRLA, EOMI Neck: Supple, No JVD Neuro: Alert, Non Focal, Oriented Times 3 Cardiovascular: Other (sinus bradycardia) Respiratory: Chest non-tender, No respiratory distress, Breath sounds nml Abdomen: Normal bowel sounds, Soft, No tenderness, No masses Extremities: No clubbing, No cyanosis, No edema, No tenderness/swelling Skin: No rashes, No breakdown, No significant lesion - Results Results: Laboratory Results WBC 9.0 x10^3/uL (4.8-10.8) 04/17/21 05:17 RBC 4.42 10^6/uL (4.70-6.10) L 04/17/21 05:17 Hgb 13.5 g/dL (14.0-18.0) L 04/17/21 05:17 Hct 40.5 % (42.0-52.0) L 04/17/21 05:17 MCV 91.6 fL (80.0-94.0) 04/17/21 05:17 MCH 30.5 pg (27.0-31.0) 04/17/21 05:17 MCHC 33.3 g/dL (32.0-36.0) 04/17/21 05:17 RDW 12.7 % (12.0-15.0) 04/17/21 05:17 Plt Count 327 10^3/uL (130-450) 04/17/21 05:17 MPV 9.1 fL (7.4-11.4) 04/17/21 05:17 Neut # (Auto) 7.1 10^3/uL (1.5-6.6) H 04/17/21 05:17 Lymph # (Auto) 1.1 10^3/uL (1.5-3.5) L 04/17/21 05:17 [place] # (Auto) 0.7 10^3/uL (0.0-1.0) 04/17/21 05:17 Eos # (Auto) 0.0 10^3/uL (0.0-0.7) 04/17/21 05:17 Baso # (Auto) 0.0 10^3/uL (0.0-0.1) 04/17/21 05:17 Absolute Nucleated RBC 0.00 x10^3/uL 04/17/21 05:17 Nucleated RBC % 0.0 /100WBC 04/17/21 05:17 VBG pH 7.526 (7.31-7.41) H 04/17/21 05:17 Ionized Calcium 1.05 mmol/L (1.15-1.33) L 04/17/21 05:17 Sodium 142 mmol/L (135-145) 04/17/21 05:17 Potassium 3.3 mmol/L (3.5-5.0) L 04/17/21 05:17 Chloride 107 mmol/L (101-111) 04/17/21 05:17 Carbon Dioxide 24 mmol/L (21-32) 04/17/21 05:17 Anion Gap 11.0 (6-13) 04/17/21 05:17 BUN < 5 mg/dL (6-20) L 04/17/21 05:17 Creatinine 0.5 mg/dL (0.6-1.2) L 04/17/21 05:17 Estimated GFR (MDRD) 181 (>89) 04/17/21 05:17 Glucose 120 mg/dL (70-100) H 04/17/21 05:17 Calcium 8.5 mg/dL (8.5-10.3) 04/17/21 05:17 Phosphorus 2.1 mg/dL (2.5-4.6) L 04/17/21 05:17 Magnesium 1.9 mg/dL (1.7-2.8) 04/17/21 05:17 Total Bilirubin 1.9 mg/dL (0.2-1.0) H 04/13/21 16:23 AST 32 IU/L (10-42) 04/13/21 16:23 ALT 20 IU/L (10-60) 04/13/21 16:23 Alkaline Phosphatase 64 IU/L (42-121) 04/13/21 16:23 Total Creatine Kinase 4569 IU/L (22-269) H* 04/17/21 05:17 Total Protein 7.6 g/dL (6.7-8.2) 04/13/21 16:23 Albumin 4.0 g/dL (3.2-5.5) 04/13/21 16:23 Globulin 3.6 g/dL (2.1-4.2) 04/13/21 16:23 Albumin/Globulin Ratio 1.1 (1.0-2.2) 04/13/21 16:23 Lipase 24 U/L (22-51) 04/13/21 16:23 TSH 0.18 uIU/mL (0.34-5.60) L 04/13/21 16:23 Thyroxine (T4) 9.95 ug/dL (6.09-12.23) 04/13/21 16:42 Free T3 pg/mL 3.62 pg/mL (2.5-3.9) 04/13/21 16:42 Urine Color DK. ORANGE 04/14/21 01:24 Urine Clarity CLEAR (CLEAR) 04/14/21 01:24 Urine pH 6.0 PH (5.0-7.5) 04/14/21 01:24 Ur Specific [place] >=1.030 (1.002-1.030) H 04/14/21 01:24 Urine Protein TRACE mg/dL (NEGATIVE) 04/14/21 01:24 Urine Glucose (UA) NEGATIVE mg/dL (NEGATIVE) 04/14/21 01:24 Urine Ketones >=80 mg/dL (NEGATIVE) H 04/14/21 01:24 Urine Occult Blood NEGATIVE (NEGATIVE) 04/14/21 01:24 Urine Nitrite NEGATIVE (NEGATIVE) 04/14/21 01:24 Urine Bilirubin NEGATIVE (NEGATIVE) 04/14/21 01:24 Urine Urobilinogen 1 (NORMAL) E.U./dL (NORMAL) 04/14/21 01:24 Ur Leukocyte Esterase NEGATIVE (NEGATIVE) 04/14/21 01:24 Ur Microscopic Review NOT INDICATED 04/14/21 01:24 Urine Culture Comments NOT INDICATED 04/14/21 01:24 Nasal Adenovirus (PCR) NOT DETECTED 04/13/21 16:35 Nasal B. parapertussis DNA (PCR) NOT DETECTED 04/13/21 16:35 Nasal Coronavir 229E PCR NOT DETECTED 04/13/21 16:35 Nasal Coronavir HKU1 PCR NOT DETECTED 04/13/21 16:35 Nasal Coronavir NL63 PCR NOT DETECTED 04/13/21 16:35 Nasal Coronavir OC43 PCR NOT DETECTED 04/13/21 16:35 Nasal Enterovir/Rhinovir PCR NOT DETECTED 04/13/21 16:35 Nasal Influenza B PCR NOT DETECTED 04/13/21 16:35 Nasal Influenza A PCR NOT DETECTED 04/13/21 16:35 Nasal Parainfluen 1 PCR NOT DETECTED 04/13/21 16:35 Nasal Parainfluen 2 PCR NOT DETECTED 04/13/21 16:35 Nasal Parainfluen 3 PCR NOT DETECTED 04/13/21 16:35 Nasal Parainfluen 4 PCR NOT DETECTED 04/13/21 16:35 Nasal RSV (PCR) NOT DETECTED 04/13/21 16:35 Nasal Screen MRSA (PCR) NEGATIVE (NEGATIVE) 04/14/21 08:20 Nasal B.pertussis DNA PCR NOT DETECTED 04/13/21 16:35 Nasal C.pneumoniae (PCR) NOT DETECTED 04/13/21 16:35 Alejandro Human Metapneumo PCR NOT DETECTED 04/13/21 16:35 Nasal M.pneumoniae (PCR) NOT DETECTED 04/13/21 16:35 Nasal SARS-CoV-2 (PCR) NOT DETECTED 04/13/21 16:35 Salicylates < 6.0 mg/dL 04/13/21 16:23 Urine Opiates Screen POSITIVE (NEGATIVE) H 04/14/21 01:24 Ur Oxycodone Screen NEGATIVE (NEGATIVE) 04/14/21 01:24 Urine Methadone Screen NEGATIVE (NEGATIVE) 04/14/21 01:24 Ur Propoxyphene Screen NEGATIVE (NEGATIVE) 04/14/21 01:24 Acetaminophen < 10 ug/mL (10-30) L 04/13/21 16:23 Ur Barbiturates Screen NEGATIVE (NEGATIVE) 04/14/21 01:24 Ur Tricyclics Screen NEGATIVE (NEGATIVE) 04/14/21 01:24 Ur Phencyclidine Scrn NEGATIVE (NEGATIVE) 04/14/21 01:24 Ur Amphetamine Screen POSITIVE (NEGATIVE) H 04/14/21 01:24 U Methamphetamines Scrn POSITIVE (NEGATIVE) H 04/14/21 01:24 U Benzodiazepines Scrn NEGATIVE (NEGATIVE) 04/14/21 01:24 Urine Cocaine Screen POSITIVE (NEGATIVE) H 04/14/21 01:24 U Cannabinoids Screen NEGATIVE (NEGATIVE) 04/14/21 01:24 Ethyl Alcohol < 5.0 mg/dL 04/13/21 16:23
[2021-04-17] MEDS: NICOTINE 21 MG PATCH TOP SCH (10:22)
[2021-04-17] MEDS: NEUTRA-PHOS 250 MG TABLET PO SCH ×2 (10:39→12:28)
[2021-04-17] MEDS: POTASSIUM PHOSPHATE 15 MMOL in SODIUM CHLORIDE 0.9% 250 ML IV ONE ×2 (13:18→17:21)
[2021-04-17 13:42] LABS: CALCIUM, IONIZED 1.08 mmol/L (1.15-1.33); VBG PH 7.493 (7.31-7.41)
[2021-04-18] MEDS: SODIUM CHLORIDE FLUSH 0.9% 10 ML SYRINGE IVP SCH ×4 (03:01→20:12)
[2021-04-18 05:32] LABS: BASOPHILS % (AUTO) 0.3 %; CALCIUM, IONIZED 1.08 mmol/L (1.15-1.33); EOSINOPHILS # (AUTO) 0.1 10^3/uL (0.0-0.7); EOSINOPHILS % (AUTO) 0.8 %; HCT - HEMATOCRIT 38.9 % (42.0-52.0); HGB - HEMOGLOBIN 13.2 g/dL (14.0-18.0); LYMPHOCYTES # (AUTO) 1.3 10^3/uL (1.5-3.5); MEAN CORPUSCULAR HEMOGLOBIN 31.1 pg (27.0-31.0); MEAN CORPUSCULAR HGB CONC 33.9 g/dL (32.0-36.0); MEAN CORPUSCULAR VOLUME 91.5 fL (80.0-94.0); MEAN PLATELET VOLUME 9.2 fL (7.4-11.4); MONOCYTES # (AUTO) 0.5 10^3/uL (0.0-1.0); NEUTROPHILS # (AUTO) 5.8 10^3/uL (1.5-6.6); NEUTROPHILS % (AUTO) 74.6 %; PLT - PLATELET COUNT 315 10^3/uL (130-450); RED BLOOD COUNT 4.25 10^6/uL (4.70-6.10); RED CELL DISTRIBUTION WIDTH 12.8 % (12.0-15.0); VBG PH 7.493 (7.31-7.41); WHITE BLOOD COUNT 7.8 x10^3/uL (4.8-10.8)
[2021-04-18 05:51] LABS: CALCIUM 8.4 mg/dL (8.5-10.3); CREATININE 0.6 mg/dL (0.6-1.2); MAGNESIUM 1.9 mg/dL (1.7-2.8); PHOSPHORUS 3.2 mg/dL (2.5-4.6); POTASSIUM 3.2 mmol/L (3.5-5.0)
[2021-04-18] MEDS: SODIUM CHLORIDE 0.9% 1,000 ML IV SCH ×3 (06:37→19:44)
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
[2021-04-18] MEDS: NICOTINE 21 MG PATCH TOP SCH (07:52)
[2021-04-18] MEDS: POTASSIUM CHLORIDE 20 MEQ TABLET PO SCH ×2 (13:09→14:07)
[2021-04-18] MEDS ORDERED: LORazepam 2 MG/ML VIAL IVP STA ×2 (13:44→18:25)
[2021-04-18] MEDS: DEXMEDETOMIDINE 400 MCG in SODIUM CHLORIDE 0.9% 100ML 96 ML IV PRN ×2 (14:14→23:45)
[2021-04-18] MEDS ORDERED: LORazepam 2 MG/ML VIAL ONE (18:30)
[2021-04-18] MEDS: LORazepam 2 MG/ML VIAL IVP PRN ×2 (20:11→22:25)
[2021-04-19] MEDS: SODIUM CHLORIDE 0.9% 1,000 ML IV SCH ×4 (01:49→22:30)
[2021-04-19] MEDS: LORazepam 2 MG/ML VIAL IVP PRN (01:58)
[2021-04-19] MEDS: SODIUM CHLORIDE FLUSH 0.9% 10 ML SYRINGE IVP PRN ×2 (01:59→22:31)
--- NOTE | 2021-04-19 04:04 | PROVIDER PROGRESS NOTE ---
Hospitalist Cross-cover Note - Cross-Cover Note Cross-Cover Note: April 19, 2021 4:01 AM Patient has been seen multiple times tonight. He was seen at midnight, and at 2:25 AM. He alternates between somnolence, or completely awake while he is kicking, spitting, and screaming at nurses. 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 Sometimes he is oriented to person place and time. He is apologetic. At other times he does not seem to be aware that he is in the hospital, and that he is here because of substance withdrawal. He still requiring chemical sedation at times. He is on Ativan as needed. Precedex drip. With most recent physical exam, he is afebrile. Heart rate varies between 39- 77. Blood pressure is 117/83. Respirations 15. 100% saturated on room air. He has just finished screaming and trying to kick at the nurse. When I walk in, he is now completely asleep. Nursing wants me to make sure that his stay and if back because even when he is asleep, he will suddenly awaken and reach out and spit. There is no respiratory distress. Lungs are clear. Abdomen is benign. We will renew violent restraints for midnight, and 2:25 AM.
[2021-04-19 05:23] LABS: CALCIUM, IONIZED 1.17 mmol/L (1.15-1.33); VBG PH 7.371 (7.31-7.41)
[2021-04-19 05:28] LABS: BASOPHILS % (AUTO) 0.5 %; EOSINOPHILS # (AUTO) 0.1 10^3/uL (0.0-0.7); EOSINOPHILS % (AUTO) 1.9 %; HGB - HEMOGLOBIN 13.2 g/dL (14.0-18.0); LYMPHOCYTES # (AUTO) 1.3 10^3/uL (1.5-3.5); LYMPHOCYTES % (AUTO) 22.1 %; MEAN CORPUSCULAR HEMOGLOBIN 30.3 pg (27.0-31.0); MEAN PLATELET VOLUME 9.3 fL (7.4-11.4); MONOCYTES # (AUTO) 0.4 10^3/uL (0.0-1.0); MONOCYTES % (AUTO) 6.5 %; NEUTROPHILS % (AUTO) 68.7 %; PLT - PLATELET COUNT 301 10^3/uL (130-450); RED BLOOD COUNT 4.35 10^6/uL (4.70-6.10); RED CELL DISTRIBUTION WIDTH 12.7 % (12.0-15.0); WHITE BLOOD COUNT 5.8 x10^3/uL (4.8-10.8)
[2021-04-19 05:36] LABS: CALCIUM 8.8 mg/dL (8.5-10.3); CREATININE 0.6 mg/dL (0.6-1.2); MAGNESIUM 2.2 mg/dL (1.7-2.8); PHOSPHORUS 4.1 mg/dL (2.5-4.6); POTASSIUM 3.9 mmol/L (3.5-5.0)
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
[2021-04-19] MEDS: NICOTINE 21 MG PATCH TOP SCH (08:44)
[2021-04-19] MEDS: SODIUM CHLORIDE FLUSH 0.9% 10 ML SYRINGE IVP SCH ×2 (08:45→17:20)
[2021-04-19] MEDS ORDERED: POTASSIUM CHLORIDE 20 MEQ TABLET PO ONE (09:00)
--- NOTE | 2021-04-19 13:15 | TELEPSYCH PHYS NOTE ---
Telepsych Consultation Note Consult: [email or web address] Name: Eros Solano : 1980 Date: 04/19/21 Time:2:15pm LINESPERSON Location of patient: [facility] Location of doctor:[facility] Length of consult:25 minutes This evaluation was conducted via telepsychiatry with the assistance of onsite staff Reason for consult: agitation Requested by: Dr. Stevens History of Present Illness: 41 y.o M with reported psychiatric history of opioid and stimulant use disorder, depression and anxiety who presented to ED 04/13 after he was found down/with aggressive and odd behaviors. At time of presentation, UDS was positive for methamphetamines, cocaine and heroin. He was admitted for management of rhabdomyolysis. He has been in ICU and has required physical restraints and Ativan/precede for agitation. He has been noted to be confused and with delusions. He had voiced SI and HI to staff at some point during hospitalization. Psychiatry consulted for medication recommendations and evaluation. They are trying to get him off precede. He is a questionable historian. He appears to be less confused today but confusion has not resolved. He is A&O to person, date and place(figured this out by reading board). States he came for help, felt bad and ended up here. He was told he took a bunch of things and wants to do better. He was told he has been here for 5 days. States he feels better and is coherent and eating. He denies cocaine use . States he uses heroin and sometimes meth and is puzzled about what was found in his system. Denies any hallucinations during this hospital stay. I asked about if he has been having any symptoms of depression and he denies this but states he was dealing with depression when he went back to school last year. He states he is in the 12th grade and that he is 17 years old. 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 He denies suicidal or homicidal ideation, intent or plan. States he needs to go home so he can go back to school [employer], staff Sleep issues: denies Psychiatric History/Treatment History: Past diagnoses: reports previous diagnoses of intermittent explosive disorder , anxiety and depression. States he has never been on medications Hospitalizations: yes almost 20 years ago for depression Current Treatment: none Suicide Assessment: PSS-3: 1) Over the past 2 weeks have you felt down, depressed or hopeless? no 2) Over the past 2 weeks have you had thoughts of killing yourself? yes 3) Have you ever in your life attempted to kill yourself? yes If yes, then when? - Within the past 24h? N, past month? N, between 1-6 months N, > 6 months Y PSS-3 Secondary Screen If #2 is yes or #3 is yes within the past 6 months, then complete secondary screen: 1) Positive on PSS-3 questions 2 & 3 active SI with a past attempt? No current SI , reports past attempt 6 years ago 2) Have you been thinking about how you might kill yourself? No 3) Have you had some intention of acting on your thoughts? No 4) Lifetime psychiatric hospitalization? yes 5) Has drinking or substance abuse ever been a problem for you? yes 6) Current irritability, agitation, or aggression? No PSS-3 Secondary Screen Scoring: mild Mild (0-2) No current attempt and no plan/intent Moderate (3-4) No current attempt, Plan OR intent but not both Severe (5-6) Current Attempt with Plan AND intent [facility] Safety Assessment: Risk Factors: history of substance use, history of suicide attempt Stressors: health Attempts/Self-injury: reports suicide attempt when he was in high school Impulsivity: did not elicit Drug/Alcohol History: reports he is a social drinker, did not quantify.Reports heroin use and occasional meth use. Denies cocaine use Trauma history: did not elicit Access to firearms: denies HI/Violence/Property destruction: per HPI Legal: reports ongoing legal case. Did not discuss Family Psych History: yes Family History of suicide: uncle Protective Factors: Internal: External: Social supports/ Therapeutic relationships: parents Relationship history: . 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 Education: reports college education Responsibility to family/children/work: yes Future orientation: looking forward to Medical History: Hepatitis C Medications & Freq: PRN Ativan Allergies: NKA Mental Status Exam: Appearance and attire: disheveled, blue-green hair, appears stated age Attitude and behavior: cooperative, good eye contact Speech: normal volume, rate and tone Mood/Affect: constricted Association and thought processes: mostly linear Thought content: no SI, no HI Perception: no AVH, did not appear to be responding to internal stimuli no evidence of delusions Sensorium, memory, and orientation: A&Ox 3, some confusion Intellectual functioning: average Insight and judgment: fair to poor Impression/Risk Assessment: Current Suicide Risk Elevated?: low Current Violence Risk Elevated? : yes Ability to care for self: limited Summary: 41 y.o M with reported psychiatric history of opioid and stimulant use disorder, depression and anxiety who presented to ED 04/13 after he was found down/with aggressive and odd behaviors. At time of presentation, UDS was positive for methamphetamines, cocaine and heroin. He was admitted for management of rhabdomyolysis. He has been in ICU and has required physical restraints and Ativan/precede for agitation. He has been noted to be confused and with delusions. He had voiced SI and HI to staff at some point during hospitalization. Psychiatry consulted for medication recommendations and evaluation. On interview he is A&O x 3 but still confused and likely a poor historian. He denies any significant changes in mood and symptoms of psychosis. Denies SI, HI and AVH and did not appear to be responding to internal stimuli. Patients cognition has waxed and waned throughout hospital stay. Reported behaviors appear to be secondary to delirium in the context of substance intoxication/withdrawal over the last few days. It is also possible there are underlying psychiatric symptoms contributing to his presentation, however, will need for delirium/confusion to clear up to assess/achieve diagnostic clarity. At this time, will start medications to help with agitation/keep patient safe. Will continue to monitor , Diagnosis: Delirium(improving) Unspecified mood disorder Stimulant use disorder Opioid use disorder Treatment Plan: Level of Care: Psychiatric Clearance: Medically admitted. Not yet psychiatrically clear. Will need to re-assess when he is less confused Observation level continue current level of observation Pharmacological: Agree that benzodiazepines could be disinhibiting patient/worsening confusion. If chemical restraint required, would provide Haldol 5mg PO(first-line) or IV(second- line) q 6 hours prn agitation/aggression. Monitor QTc during treatment with neuroleptics Avoid anticholinergic medications and anti-histamines Behavioral Maintain safety: Attempt to minimize physical restraint unless medically necessary. If combative or threatening, contact security. Start melatonin 3 mg qhs to help with sleep-wake cycle Provide frequent reorientation to date, time, place, situation. Ambulate patient if able. If patient is elopement risk, 2 staff members should accompany patient. Maintain calm environment with low noise level, minimal interruptions. Maintain sleep-wake cycle by keeping blinds open during day, closed at night. Keep television off at night. Patient psychotic? No Therapy: supportive, substance abuse Follow up needed while in hospital?: follow up every 24- 48 hours Case discussed with Dr. Hilda Mohan MD Psychiatrist List names and roles of persons who participated in consult: this provider- Dr Mohan and patient
[2021-04-19] MEDS: DEXMEDETOMIDINE 400 MCG in SODIUM CHLORIDE 0.9% 100ML 96 ML IV PRN (13:42)
[2021-04-19] MEDS: haloperidoL 1 MG TABLET PO PRN ×2 (14:57→20:02)
[2021-04-19] MEDS ORDERED: LORazepam 2 MG/ML VIAL IVP STA (21:28)
[2021-04-20] MEDS: DEXMEDETOMIDINE 400 MCG in SODIUM CHLORIDE 0.9% 100ML 96 ML IV PRN (00:02)
[2021-04-20] MEDS: haloperidoL 1 MG TABLET PO PRN ×2 (00:46→08:57)
[2021-04-20] MEDS: SODIUM CHLORIDE FLUSH 0.9% 10 ML SYRINGE IVP SCH ×3 (05:10→18:54)
[2021-04-20] MEDS: SODIUM CHLORIDE 0.9% 1,000 ML IV SCH (05:10)
[2021-04-20 05:11] LABS: BASOPHILS % (AUTO) 0.3 %; EOSINOPHILS # (AUTO) 0.1 10^3/uL (0.0-0.7); EOSINOPHILS % (AUTO) 1.8 %; HCT - HEMATOCRIT 39.1 % (42.0-52.0); HGB - HEMOGLOBIN 13.2 g/dL (14.0-18.0); LYMPHOCYTES # (AUTO) 1.6 10^3/uL (1.5-3.5); LYMPHOCYTES % (AUTO) 21.4 %; MEAN CORPUSCULAR HEMOGLOBIN 31.1 pg (27.0-31.0); MEAN CORPUSCULAR HGB CONC 33.8 g/dL (32.0-36.0); MEAN PLATELET VOLUME 10.1 fL (7.4-11.4); MONOCYTES # (AUTO) 0.4 10^3/uL (0.0-1.0); MONOCYTES % (AUTO) 5.1 %; NEUTROPHILS # (AUTO) 5.2 10^3/uL (1.5-6.6); NEUTROPHILS % (AUTO) 71.1 %; PLT - PLATELET COUNT 321 10^3/uL (130-450); RED BLOOD COUNT 4.25 10^6/uL (4.70-6.10); RED CELL DISTRIBUTION WIDTH 12.8 % (12.0-15.0); WHITE BLOOD COUNT 7.3 x10^3/uL (4.8-10.8)
[2021-04-20 05:21] LABS: CALCIUM 8.4 mg/dL (8.5-10.3); CREATININE 0.5 mg/dL (0.6-1.2); POTASSIUM 3.4 mmol/L (3.5-5.0)
--- NOTE | 2021-04-20 07:43 | PROVIDER PROGRESS NOTE ---
Subjective - Prog Note Date Prog Note Date: 04/20/21 - Subjective Subjective: He is now out of restraints and is more cooperative. He denies any suicidal thoughts but does report homicidal ideations. He also admits to auditory visualizations throughout his life. He told DCR that he is agreeable to a voluntary hold. Current Medications - Current Medications Current Medications: Active Medications Haloperidol (Haloperidol 10 Mg/5 Ml Udc) 5 mg PO Q6HR PRN PRN Reason: Agitation Nicotine (Nicotine 21 Mg Patch) 1 patch TOP DAILY [facility] Last Admin: 04/20/21 08:56 Dose: 1 patch Documented by: Ondansetron HCl (Ondansetron 4 Mg/2 Ml Vial) 4 mg IVP Q6HR PRN PRN Reason: Nausea / Vomiting Last Admin: 04/18/21 07:50 Dose: 4 mg Documented by: Sodium Chloride (Sodium Chloride Flush 0.9% 10 Ml Syringe) 10 ml IVP PRN PRN PRN Reason: NEEDED PER PROVIDER ORDERS Last Admin: 04/19/21 22:31 Dose: 10 ml Documented by: Sodium Chloride (Sodium Chloride Flush 0.9% 10 Ml Syringe) 10 ml IVP 0100,0900,1700 [facility] Last Admin: 04/20/21 08:57 Dose: 10 ml Documented by: Home Medications Unobtainable [HOME MEDICATIONS UNOBTAINABLE] 04/13/21 Objective - Vital Signs/Intake & Output Reviewed Vital Signs: Yes Vital Signs: Vital Signs Temp Pulse Resp BP 04/20/21 07:00 53 L 15 103/69 04/20/21 06:00 36.5 C 50 L 16 104/72 04/20/21 05:00 54 L 18 99/63 04/20/21 04:00 60 16 105/70 Intake & Output: Intake & Output 04/17/21 04/18/21 04/19/21 04/20/21 23:59 23:59 23:59 23:59 Intake Total 4764.350 4110.884 5707.784 1660.26 Output Total 4155 2100 2451 0 Balance 515.651 0448.884 3256.784 1660.26 - Objective General Appearance: positive: Alert Eyes Bilateral: positive: Normal inspection, Conjunctivae nml ENT: positive: ENT inspection nml Neck: positive: Nml inspection Respiratory: positive: No respiratory distress. negative: Wheezes, Rales Cardiovascular: positive: Regular rate & rhythm. negative: Tachycardia Abdomen: positive: Non-tender, No distention. negative: Tenderness Neurologic/Psychiatric: positive: Motor nml, Other (His speech is pressured and tangential at times. He is quite restless and will attempt to get out of bed frequently and ambulate in the room. He is redirectable at times.). negative: Disoriented to person, Disoriented to place, Disoriented to time - Lab Results Fish Bones: 04/20/21 04:12 04/20/21 04:12 Other Labs: Lab Results x24hrs 04/20/21 04/20/21 04/19/21 Range/Units 04:12 04:12 05:10 WBC 7.3 (4.8-10.8) x10^3/uL RBC 4.25 L (4.70-6.10) 10^6/uL Hgb 13.2 L (14.0-18.0) g/dL Hct 39.1 L (42.0-52.0) % MCV 92.0 (80.0-94.0) fL MCH 31.1 H (27.0-31.0) pg MCHC 33.8 (32.0-36.0) g/dL RDW 12.8 (12.0-15.0) % Plt Count 321 (130-450) 10^3/uL MPV 10.1 (7.4-11.4) fL Neut # (Auto) 5.2 (1.5-6.6) 10^3/uL Lymph # (Auto) 1.6 (1.5-3.5) 10^3/uL [place] # (Auto) 0.4 (0.0-1.0) 10^3/uL Eos # (Auto) 0.1 (0.0-0.7) 10^3/uL Baso # (Auto) 0.0 (0.0-0.1) 10^3/uL Absolute Nucleated RBC 0.00 x10^3/uL Nucleated RBC % 0.0 /100WBC Sodium 141 (135-145) mmol/L Potassium 3.4 L (3.5-5.0) mmol/L Chloride 108 (101-111) mmol/L Carbon Dioxide 26 (21-32) mmol/L Anion Gap 7.0 (6-13) BUN 8 (6-20) mg/dL Creatinine 0.5 L (0.6-1.2) mg/dL Estimated GFR (MDRD) 181 (>89) Glucose 127 H (70-100) mg/dL Calcium 8.4 L (8.5-10.3) mg/dL Total Creatine Kinase 433 H 940 H (22-269) IU/L Assessment/Plan - Problem List (1) Homicidal ideations Impression: He continues to report homicidal ideations but denies suicidal ideations. At this point time, he is medically cleared for transfer to a psychiatric facility. I do not believe that he has the ability to leave AGAINST MEDICAL ADVICE as he is a harm to himself and others given he continues to report homicidal ideations. We will work closely with social work and DCR regarding disposition. We will continue to use Haldol as needed for agitation. (2) Intoxication by drug Impression: This was likely multifactorial and has resolved. He appears back to his baseline at this point in time. It was felt this was secondary to the substance abuse, lorazepam, and underlying psychiatric condition. Qualifiers: Complication of substance-induced condition: with delirium Qualified Code(s): F19.921 - Other psychoactive substance use, unspecified with intoxication with delirium (3) Delirium Impression: He is no longer delirious. Suspect this was likely secondary to the use of Ativan. (4) Rhabdomyolysis Impression: Resolved. This was secondary to drug use. (5) Hypokalemia Impression: This was replaced orally this morning.
[2021-04-20] MEDS: NICOTINE 21 MG PATCH TOP SCH (08:56)
[2021-04-20] MEDS: POTASSIUM CHLORIDE 20 MEQ TABLET PO SCH ×2 (08:57→12:13)
[2021-04-20] MEDS ORDERED: HALOPERIDOL 10 MG/5 ML UDC PO PRN (10:09)
[2021-04-20] MEDS ORDERED: HALOPERIDOL 5 MG/ML VIAL IVP ONE (14:03)
[2021-04-20] MEDS ORDERED: HALOPERIDOL 5 MG/ML VIAL ONE (14:07)
[2021-04-20] MEDS: HALOPERIDOL 10 MG/5 ML UDC PO PRN (20:03)
[2021-04-20] MEDS ORDERED: LORazepam 2 MG/ML VIAL IVP STA (21:23)
[2021-04-20] MEDS ORDERED: LORazepam 1 MG TABLET PO STA (21:34)
[2021-04-21] MEDS: HALOPERIDOL 10 MG/5 ML UDC PO PRN ×2 (01:35→09:38)
--- NOTE | 2021-04-21 02:04 | Discharge Plan ---
Discharge Plan Problem Reviewed?: Yes Disposition: [facility] Psych Hosp/Unit DC/Xfer Condition: Fair Diet: Regular Activity Restrictions: Activity as Tolerated Shower Restrictions: No Driving Restrictions: No Weight Bearing: Full Weight No Smoking: If you smoke, Please STOP! Call for help. Follow-up with: Everette Fields MD [Primary Care Provider] -
--- NOTE | 2021-04-21 02:06 | DISCHARGE SUMMARY ---
"Discharge Summary Discharge Date: 04/21/21 Discharging Provider: Reena Crockett MD Primary Care Provider: Everette Fields MD Code Status: Attempt Resuscitation Condition at Discharge: Fair Discharge Disposition: [facility] Psych Hosp/Unit DC/Xfer Discharge Facility Name: [facility], [place] - DIAGNOSES Discharge Diagnoses with Status of Each Condition: 1. Homicidal ideations 2. Intoxication by drug 3. Delirium 4. Rhabdomyolysis 5. Hypokalemia 6. Substance abuse with cocaine and methamphetamines 7. Opioid use disorder 8. Unspecified mood disorder - HPI History of Present Illness: Patient is a 41-year-old male who was brought to the ED by the yarn texturing machine operator after the police was called. He had been walking in the middle of the road slammed onto the gerard of a car and finally laid down in the middle of the road. At which point the school boat driver called the police department. When he was brought to the ED he was significantly altered and very agitated. He required administration of Versed, ketamine, Zyprexa and violent restraints to care for him. On further conversation with his ex over the phone she reports the patient has been on the streets for the past 2 to 3 days. He has been on a binge and doing a lot of drugs. He spoke to his mother before the incident of significant drug use and mentioned hearing voices that were telling him to kill himself. He often experiences auditory visual hallucinations. The patient has had several episodes of drug overdose which usually involve heroin. Since September 2020 he has had three episodes for which he required Narcan. He is originally from [place] and has been living in [facility] for 1.5 years now. In July he went to rehab but did not complete treatment. He has been prescribed Suboxone which he no longer takes. He also has history of being incarcerated. In the ED work-up included a toxicology screen which showed that he was positive for opiates, methamphetamine and cocaine. He also had a significantly elevated creatinine kinase level at 2752. Consequently he was presented for admission for further treatment. At bedside the patient was in four-point violent restraints yet still significantly agitated and required staff to keep him stable. He has significant dry oral mucosa and cracked lips. His entire body is covered in tattoos. His history is significantly limited due to his current altered mental status a nd encephalopathy. - Past Medical History GI: reports: Other MRSA Hx?: No Other Past Medical History: Hep C. Cirrhosis. Anxiety. Depression - Past Surgical History Ortho: reports: Other (left knee meniscus surgery) - CONSULTS | PROCEDURES Procedures: Psychiatric telehealth consultation. - HOSPITAL COURSE Hospital Course: Because of the patient's delirium and agitated behavior he was a threat to the staff and to himself. He required Ativan drip at times. Precedex drip at times. Telehealth psychiatric consultation was very helpful and the patient was started on Haldol and sparing use of benzodiazepines. Delirium gradually improved, hallucinations resolved. He had elevated CPK attributed to previous use of methamphetamines and the use of four-point restraints. As his delirium gradually cleared, he was able to eat and drink. IV medications were discontinued and his mood was stabilized with Haldol. Mental health professional was dispatched for evaluation for him. He is an involuntary hold and the mental health professional was able to find a accepting facility, and [facility] to accept this patient. At discharge temperature was 37.5. Heart rate 73. Blood pressure 98/63. During his stay he has been hypotensive and he states that this is his baseline for him. Respirations is 20. 97% on room air. He is 6 foot 2 inches tall. 74 kg male. Lean body mass, multiple tattoos, very strong. Disheveled male with intermittent anxiety, anger, agitation, or somnolence. Neck is supple without rigidity. Lungs are clear to auscultation and percussion. PMI is normally placed. A regular rate and rhythm. Abdomen is soft, nontender. He is able to walk to the bathroom from his bed. Able to complete those activities and return back to bed without assistance. There is no ataxia. No weakness. He is oriented to person place and time. But can be forgetful and needs to be reminded of where he is and to cooperate. Mood varies between cooperative, or anxious or combative. Affect is flat. Flights of ideas is present constantly. Sometimes cries. CPK peaked at 4569. With IV fluids and adequate oral intake his CPK the day before discharge was 433. White cell count is normal at 7.3. Hemoglobin 13.2. Sodium 141. Potassium 3.4 the day before discharge. Supplemented with oral potassium. BUN 8 and creatinine 0.5. Urine tox screen on admission was positive for opiates, amphetamines, methamphetamines, cocaine. Ethyl alcohol undetectable. Salicylate is undetectable. He is transferred in stable condition. Greater than 30 minutes was spent coordinating discharge. - ALLERGIES Allergies/Adverse Reactions: Allergies Allergy/AdvReac Type Severity Reaction Status Date / Time No Known Drug Allergies Allergy Verified 11/03/20 14:36 - MEDICATIONS Home Medications: Ambulatory Orders Medication Instructions Recorded Confirmed Home Medications Unobtainable 04/13/21 04/13/21 [HOME MEDICATIONS UNOBTAINABLE] - LABS Result Diagrams: 04/20/21 04:12 04/20/21 04:12"
[2021-04-21 08:09] VITALS: BP 104/80
[2021-04-21] MEDS: SODIUM CHLORIDE FLUSH 0.9% 10 ML SYRINGE IVP SCH (08:23)
[2021-04-21] MEDS: NICOTINE 21 MG PATCH TOP SCH (08:23)
== END 2021-04-21 09:48 | DRG 558 ==
LOC: EDSEX → EDUNIT# → ED 16:10 → ICU 04-14 07:26
PROVIDERS: ADMIT Internal Medicine; ATTEND Specialist
DX: M62.82 Rhabdomyolysis (principal); F14.121 Cocaine abuse with intoxication with delirium; F15.121 Other stimulant abuse with intoxication delirium; F11.94 Opioid use, unspecified with opioid-induced mood disorder; R45.850 Homicidal ideations; E87.6 Hypokalemia; F32.9 Major depressive disorder, single episode, unspecified; F41.9 Anxiety disorder, unspecified; F17.210 Nicotine dependence, cigarettes, uncomplicated; Z78.1 Physical restraint status; Z20.822 Contact with and (suspected) exposure to COVID-19; T50.7X6A Underdosing of analeptics and opioid receptor antagonists, initial encounter; Z91.128 Patient's intentional underdosing of medication regimen for other reason; Z91.51 Personal history of suicidal behavior; Z86.19 Personal history of other infectious and parasitic diseases
CPT/HCPCS: 0202U; 36415; 51702; 80048; 80053; 80306; 80307; 80320; 80329; 81003; 82330; 82550; 83690; 83735; 84100; 84132; 84436; 84443; 84481; 85025; 87040; 87150; 93005; 96361; 96372; 96374; 99285; A9270; J2060; J7040; J8499; Q3014; 81001; 87086

== ENCOUNTER 2024-04-14 17:51 | Inpatient (IN) ==
[2024-04-14] MEDS ORDERED: iohexoL-300 100 ML VIAL ONE (18:20)
--- NOTE | 2024-04-14 18:41 | ED Physician Documentation ---
History of Present Illness - Stated complaint Stated Complaint: RT SIDE FACE PX - Chief complaint Chief Complaint: Heent - History obtained from History obtained from: Patient - History of Present Illness Timing: How many days ago (several days) Pain level max: 9 Pain level now: 9 - Additonal information Additional information: Patient is a 44-year-old male, history of methamphetamine abuse, presents the emergency department with right upper dental pain. He states that he has had dental pain for several years, but over the past 2 days started have swelling in the face which is now extended up by his eye and down underneath his jaw. No fevers. No chills. Has not taken any antibiotics for this. He states that he is having some difficulty swallowing and feels like his mouth is more difficult to open than usual. No vomiting. Review of Systems Constitutional: denies: Fever, Chills Respiratory: denies: Cough GI: denies: Vomiting, Diarrhea Skin: denies: Rash Musculoskeletal: denies: Neck pain, Back pain Neurologic: denies: Headache PD PAST MEDICAL HISTORY - Past Medical History Past Medical History: No GI: Other - Past Surgical History Past Surgical History: Yes Ortho: Other - Present Medications Home Medications: Ambulatory Orders Medication Instructions Recorded Confirmed Home Medications Unobtainable 04/13/21 04/13/21 [HOME MEDICATIONS UNOBTAINABLE] - Allergies Allergies/Adverse Reactions: Allergies Allergy/AdvReac Type Severity Reaction Status Date / Time No Known Drug Allergies Allergy Verified 04/14/24 17:58 - Social History Does the pt smoke?: Yes Smoking Status: Current every day smoker Does the pt drink ETOH?: Yes Does the pt have substance abuse?: Yes - Immunizations Immunizations are current?: Yes - POLST Patient has POLST: No POLST Status: Full Code PD ED PE NORMAL - Vitals Vital signs reviewed: Yes - General General: Alert and oriented X 3, No acute distress - HEENT HEENT: PERRL, Moist mucous membranes, Other (Patient with extensive swelling and cellulitis to the right side of the face, extending from the right periorbital region down to the angle of the mandible. No crepitus. No drainage. Diffuse dental caries. No wheezing or stridor. Mild trismus) - Neck Neck: Supple, no meningeal sign - Cardiac Cardiac: RRR, Strong equal pulses - Respiratory Respiratory: No respiratory distress, Clear bilaterally - Abdomen Abdomen: Soft, Non tender, Non distended - Derm Derm: Warm and dry - Extremities Extremities: No edema - Neuro Neuro: Alert and oriented X 3 - Psych Psych: Normal mood, Normal affect Results - Vitals Vitals: Vital Signs - 24 hr 04/14/24 18:00 Temperature 37.0 C Heart Rate 100 Respiratory 16 Rate Blood Pressure 104/76 O2 Saturation 100 Oxygen O2 Source Room air - Labs Labs: Laboratory Tests 04/14/24 04/14/24 18:50 18:50 WBC 32.1 H RBC 4.67 L Hgb 13.9 L Hct 41.0 L MCV 87.8 MCH 29.8 MCHC 33.9 RDW 12.5 Plt Count 225 MPV 8.9 Neut # (Auto) Not Reportable Lymph # (Auto) Not Reportable [place] # (Auto) Not Reportable Eos # (Auto) Not Reportable Baso # (Auto) Not Reportable Absolute Nucleated RBC Not Reportable Total Counted 100 Band Neuts % (Manual) 16 H Abnorm Lymph % (Manual) 0 Nucleated RBC % Not Reportable Neutrophils # (Manual) 30.5 H Lymphocytes # (Manual) 0.6 L Monocytes # (Manual) 1.0 Eosinophils # (Manual) 0.0 Basophils # (Manual) 0.0 Differential Comment MANUAL DIFFERENTIAL WBC Morphology PELGER HUET ANOMALY Platelet Estimate NORMAL (130-450,000) Platelet Morphology 1+ LARGE PLATELETS RBC Morph Micro Appear NORMAL APPEARANCE Sodium 132 L Potassium 3.4 L Chloride 93 L Carbon Dioxide 31 Anion Gap 8.0 BUN 19 Creatinine 1.0 Estimated GFR (MDRD) 80 L Glucose 155 H Calcium 9.4 Total Bilirubin 0.7 AST 12 ALT 11 Alkaline Phosphatase 67 Total Protein 7.6 Albumin 3.7 Globulin 3.9 Albumin/Globulin Ratio 0.9 L Lipase < 10 L - Rads (name of study) CT soft tissue Relevant Findings:: Final report received, See rad report PD Medical Decision Making - ED course Complexity details: reviewed results, re-evaluated patient, considered differential, d/w patient, d/w service delivery management consultant ED course: 44-year-old male with extensive facial cellulitis. CT scan was performed, this does not show any drainable abscess. I discussed the case with oral maxillofacial surgery, Dr. Lepe. He came and evaluated the patient. He is going to make a small incision with a Janelle drain. Recommends placing the patient on vancomycin and Unasyn. The patient already been given clindamycin down here. Pain is well-controlled. No evidence of airway compromise at this time. Discussed the case with the nighttime hospitalist, who accepts. OMFS will follow the patient when he is admitted. This document was made in part using voice recognition software. While efforts are made to proofread this document, sound alike and grammatical errors may occur. Departure - Departure Disposition: ED Place in Observation Clinical Impression: Facial cellulitis, Dental infection Condition: Stable Forms: PCP List
[2024-04-14 19:02] LABS: BASOPHILS % (AUTO) 0.3 %; EOSINOPHILS % (AUTO) 0.2 %; HGB - HEMOGLOBIN 13.9 g/dL (14.0-18.0); LYMPHOCYTES % (AUTO) 1.3 %; MEAN CORPUSCULAR HEMOGLOBIN 29.8 pg (27.0-31.0); MEAN CORPUSCULAR HGB CONC 33.9 g/dL (32.0-36.0); MEAN CORPUSCULAR VOLUME 87.8 fL (80.0-94.0); MEAN PLATELET VOLUME 8.9 fL (7.4-11.4); MONOCYTES % (AUTO) 5.3 %; NEUTROPHILS % (AUTO) 90.6 %; PLT - PLATELET COUNT 225 10^3/uL (130-450); RED BLOOD COUNT 4.67 10^6/uL (4.70-6.10); RED CELL DISTRIBUTION WIDTH 12.5 % (12.0-15.0); WHITE BLOOD COUNT 32.1 x10^3/uL (4.8-10.8)
[2024-04-14 19:05] LABS: ABNORMAL LYMPHS % (MANUAL) 0 %
[2024-04-14] MEDS: MORPHINE 2 MG/ML CARPUJECT IVP STA (19:17)
[2024-04-14] MEDS: SODIUM CHLORIDE 0.9% 1,000 ML IV STA (19:18)
[2024-04-14] MEDS: CLINDAMYCIN 900 MG/50 ML 900 MG/50 ML BAG IV ONE (19:18)
[2024-04-14] MEDS: KETOROLAC 30 MG/ML VIAL IVP STA (19:18)
[2024-04-14 19:21] LABS: ALBUMIN 3.7 g/dL (3.2-5.5); ALBUMIN/GLOBULIN RATIO 0.9 (1.0-2.2); ALKALINE PHOSPHATASE 67 IU/L (42-121); ALT ALANINE AMINOTRANSFERASE 11 IU/L (10-60); AST ASPARTATE AMINOTRANSFERASE 12 IU/L (10-42); BILIRUBIN,TOTAL 0.7 mg/dL (0.2-1.0); BUN - BLOOD UREA NITROGEN 19 mg/dL (6-20); CALCIUM 9.4 mg/dL (8.5-10.3); CARBON DIOXIDE - CO2 31 mmol/L (21-32); CHLORIDE 93 mmol/L (101-111); GFR - MDRD 80 (>89); GLUCOSE 155 mg/dL (74-104); POTASSIUM 3.4 mmol/L (3.5-4.5); SODIUM 132 mmol/L (135-145); TOTAL PROTEIN 7.6 g/dL (6.4-8.9)
[2024-04-14 19:22] LABS: LIPASE < 10 U/L (11-82)
[2024-04-14 19:28] LABS: BAND NEUTROPHILS % (MANUAL) 16 %; LYMPHOCYTES # (MANUAL) 0.6 10^3/uL (1.5-3.5); LYMPHOCYTES % (MANUAL) 2 %; NEUTROPHILS # (MANUAL) 30.5 10^3/uL (1.5-6.6)
[2024-04-14 19:30] LABS: PLATELET ESTIMATE, MANUAL NORMAL (130-450,000) (NORMAL); PLATELET MORPHOLOGY 1+ LARGE PLATELETS (NORMAL); RBC MORPHOLOGY (MULTIPLE) NORMAL APPEARANCE (NORMAL); WBC MORPHOLOGY (MULTIPLE) PELGER HUET ANOMALY (NORMAL)
[2024-04-14 19:31] LABS: DIFFERENTIAL COMMENT MANUAL DIFFERENTIAL
[2024-04-14] MEDS: iohexoL-300 100 ML VIAL IVP ONE (19:47)
--- NOTE | 2024-04-14 20:00 | CT Report ---
PROCEDURE: Soft Tissue Neck W INDICATIONS: R facial swelling/pain CONTRAST: 100ML [id number] TECHNIQUE: After the administration of intravenous contrast, 3.0 mm axial sections acquired from the sella to th e aortic arch. Additional oblique axial 3.0 mm sections acquired through the pharynx. 3 mm thick co dayton reformats were generated. For radiation dose reduction, the following was used: automated exp osure control, adjustment of mA and/or kV according to patient size. COMPARISON: None. FINDINGS: Image quality: Excellent. Lymph nodes: Enlarged cervical chain lymph nodes without evidence of central necrosis or other abnorm ality. Vessels: Visualized vasculature appears patent. Neck spaces: The oropharynx, nasopharynx, and pharynx demonstrate no mucosal lesions. The vocal cor ds, false vocal cords, pyriform sinuses, epiglottis, vallecula, and tongue base all appear normal. E xtramucosal spaces appear unremarkable. Glands: The parotid and submandibular glands appear normal. The thyroid is normal in size and there are no incidental findings. Miscellaneous: Visualized brain and orbits appear normal. Lung apices appear clear. Marked soft tis ceci swelling of the right face. Bones: No suspicious bony lesions. Visualized sinuses and mastoids appear unremarkable. Extensive dental caries and left greater than right periapical lucencies. IMPRESSION: Marked soft tissue swelling of the right face, without drainable abscess. Reactive bilateral cervical chain lymph nodes. Extensive dental caries and left greater than right periapical lucencies. The facial swelling is like ly odontogenic in origin. Recommend dental referral. Reviewed by: Max George MD on 04/14/2024 7:59 PM PDT Approved by: Max George MD on 04/14/2024 7:59 PM PDT Station ID: [id number]
[2024-04-14] MEDS: ACETAMINOPHEN 325 MG TABLET PO STA (20:06)
[2024-04-14] MEDS: LORazepam 2 MG/ML VIAL IVP STA (21:12)
[2024-04-14] MEDS: LIDOCAINE 2%-EPI 1:100000 20 ML MDV SUBQ STA (21:44)
[2024-04-14] MEDS: HYDROmorphone 1 MG/ML CARPUJECT IVP STA (21:47)
[2024-04-14] MEDS ORDERED: ACETAMINOPHEN 325 MG TABLET PO PRN (22:12)
[2024-04-14] MEDS ORDERED: ONDANSETRON 4 MG/2 ML VIAL IVP PRN (22:12)
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
--- NOTE | 2024-04-14 22:25 | OPERATIVE REPORT ---
Operative Report - General Procedure Date: 04/14/24 Planned Procedure: incision and drainage of right temporal region Pre-Op Diagnosis: Right facial cellulitis Procedure Performed: incision and drainage of right temporal region Post Op Diagnosis: right facial cellulitis - Procedure Note Primary Surgeon: Uli Lepe DDS Anesthesia Technique: Local Estimated Blood Loss (mL): 5 Drain/Tube Type: Janelle Indications: 44-year-old male with 1 week history of swelling of the right face. Etiology is unclear. He. He was decided that incision and drainage of the right temporal region was indicated for therapeutic as well as diagnostic purposes. The risks, benefits, and alternatives of this plan were discussed with the patient and significant other including pain, swelling, bleeding, worsening of the infection, scarring, hair loss in the incised area, need for further surgery, Nerve injury causing permanent paresthesia, and or paralysis. Adequate time was given answer all questions and informed consent was obtained. Findings: the patient was countered encounter the emergency room. He was placed in a supine position on the emergency room bed. The right temporal region was prepped with iodine down to the inferior border the mandible. Local anesthesia was achieved with 7 cc of 2% lidocaine with 1 100,000 epinephrine. The patient tolerated the procedure very well during the administration of local anesthetic. A formal timeout was executed. 11 blade was made used to make an incision through the skin and down to the temporalis muscle. Blunt dissection in an inferior direction was performed. This was performed with a curved Essence hemostat. The dissection was performed from the right temporalis region down to the area of the external auditory canal. This dissection was performed only bluntly taking care to avoid damage to the any of the vasculature or nerves in the area. Not surprisingly, there was no adina purulence. However, there was some brown appearing blood that came from the area. A culture swab was introduced through the prepped skin and into the wound. The culture was submitted for aerobic and anaerobic culture and sensitivity. The site was irrigated copiously. 1/4 inch Bledsoe drain was placed. It was secured to the skin with a single 3-0 silk suture. Good hemostasis with was achieved with pressure and gauze. This marked the end of the case. Complications: None.
--- NOTE | 2024-04-14 22:27 | HISTORY & PHYSICAL EXAMINATION ---
Chief Complaint - Chief Complaint Chief Complaint: right face swelling and pain History of Present Illness - Admitted From Admitted From:: ED - History Obtained From Records Reviewed: EMR History obtained from: Patient and OMFS and ED Exam Limitations: Tele Medicine - History of Present Illness HPI Comment/Other: 44M p/w right sided face swelling and redness and pain. Patient reports sxs started 4 days ago with facial pain. He noted subsequent redness and swelling. Pain spread to his teeth. No pain with swallowing. No SOB. He skateboards and had fallen couple of time a week ago however no known over injury to the face. No other reported trauma. He has dental pain but on the left side of his teeth and had seen a dentist a month ago and was told he need a root canal. He was not told he had any active issues with his teeth on the right side. No fever. Positive chills. No cough. No runny nose. No chest pain. No SOB. No palpitation. No n/v/d. No rash. ED staff spoke with OMFS who saw the patient at bedside and I&D and sent fluid for culture. OMFS reports getting minor serosanguinous fluid. OMFS does not think infection originated from teeth. History - Past Medical History GI: reports: Hepatitis, Other MRSA Hx?: No - Past Surgical History Ortho: reports: Other - Family & Social History Family History Comment/Other: Uncle who committed suicide. Social History Notes: Patient supposedly lives with a or ex- however when he goes on a drug binge he lives on the streets. He abuses cocaine, met hamphetamine and heroin. He drinks alcohol occasionally and smokes cigarettes. - POLST Patient has POLST: No POLST Status: Full Code Meds/Allgy - Home Medications Home Medications: Ambulatory Orders Medication Instructions Recorded Confirmed Home Medications Unobtainable 04/13/21 04/13/21 [HOME MEDICATIONS UNOBTAINABLE] - Allergies Allergies/Adverse Reactions: Allergies Allergy/AdvReac Type Severity Reaction Status Date / Time No Known Drug Allergies Allergy Verified 04/14/24 17:58 Review of Systems - Other Findings Other Findings: negative unless mentioned differently Exam - Vital Signs Reviewed Vital Signs: Yes Vital Signs: Vital Signs x48h Temp Pulse Resp BP Pulse Ox 04/14/24 18:00 37.0 C 100 16 104/76 100 - Physical Exam General Appearance: positive: No acute distress Eyes Bilateral: positive: No scleral icterus, Other (right periorbital edema) Neck: positive: Nml inspection Skin: positive: Other (right side face erythematous and edematous) Extremities: positive: Nml appearance Neurologic/Psychiatric: positive: Oriented x3, CN's nml (2-12), Mood/affect nml Conclusion/Plan - Problem List (1) Facial cellulitis Conclusion/Plan: empiric abx. pain control. followup culture and OMFS recommendation (2) Hypokalemia Conclusion/Plan: mild hypoK. replete and recheck in am. - Lab Results Lab results reviewed: Yes Fish Bones: 04/14/24 18:50 04/14/24 18:50 - Diagnostic Imaging Results Diagnostic Imaging Results: positive: Final report reviewed (marked soft tissue swelling of the right face, without drainable abscess. reactive bilaeral cervical chain lymph nodes) Core Measures - Anticipated LOS I expect patient to be DC'd or transferred within 96 hours.: Yes - Issues Hospital Issues and Management Plan: The patient consented to receive this telemedicine service, which I performed via live two-way audiovisual equipment. The patient is at [facility] and I am physically in [facility]. A nurse assisted me in the visit. Full code SCDs Observation Robert Rodriguez DO Internal Medicine [employer] Tele Personal Lines Underwriter - DVT/VTE - Prophylaxis VTE/DVT Device ordered at admit?: Yes Telemedicine Consult Details - Provider Location & Consult Time Telemedicine consultation conducted via videoconferencing?: Yes List names and roles of persons who participated in consult:: Patient, , ED, OMFS Telemedicine provider location:: [facility] Time Telemedicine consult began:: 22:01 Time Telemedicine consult completed:: 23:01
[2024-04-14] MEDS: POTASSIUM CHLORIDE 20 MEQ TABLET PO ONE (22:48)
[2024-04-14] MEDS: HYDROcod/ACETAM 5/325 MG TABLET PO PRN (22:48)
[2024-04-14] MEDS: SODIUM CHLORIDE FLUSH 0.9% 10 ML SYRINGE IVP SCH (23:56)
[2024-04-14] MEDS: AMPICILLIN/SULBACTAM 3 GM in SODIUM CHLORIDE 0.9% MINIBAG 100 ML IV SCH (23:56)
[2024-04-15] MEDS: HYDROmorphone 1 MG/ML CARPUJECT IVP ONE (06:02)
[2024-04-15] MEDS: SODIUM CHLORIDE 0.9% 1,000 ML IV ONE (06:06)
[2024-04-15 06:25] LABS: HCT - HEMATOCRIT 35.8 % (42.0-52.0); HGB - HEMOGLOBIN 12.3 g/dL (14.0-18.0); MEAN CORPUSCULAR HEMOGLOBIN 30.1 pg (27.0-31.0); MEAN CORPUSCULAR HGB CONC 34.4 g/dL (32.0-36.0); MEAN CORPUSCULAR VOLUME 87.5 fL (80.0-94.0); RED BLOOD COUNT 4.09 10^6/uL (4.70-6.10); RED CELL DISTRIBUTION WIDTH 12.8 % (12.0-15.0); WHITE BLOOD COUNT 26.1 x10^3/uL (4.8-10.8)
[2024-04-15 06:44] LABS: ALKALINE PHOSPHATASE 66 IU/L (42-121); ALT ALANINE AMINOTRANSFERASE 10 IU/L (10-60); AST ASPARTATE AMINOTRANSFERASE 15 IU/L (10-42); BILIRUBIN,TOTAL 0.8 mg/dL (0.2-1.0); BUN - BLOOD UREA NITROGEN 15 mg/dL (6-20); CALCIUM 8.6 mg/dL (8.5-10.3); CARBON DIOXIDE - CO2 28 mmol/L (21-32); CHLORIDE 99 mmol/L (101-111); CHOL/HDL RATIO 3.8 (<5.0); CHOLESTEROL 76 mg/dL; CREATININE 0.7 mg/dL (0.6-1.3); GFR - MDRD 121 (>89); GLUCOSE 117 mg/dL (74-104); HDL CHOLESTEROL 20 mg/dL; LDL CHOLESTEROL,CALCULATED 34 mg/dL; LDL/HDL RATIO 1.7 (<3.6); MAGNESIUM 1.8 mg/dL (1.7-2.3); PHOSPHORUS 1.8 mg/dL (2.5-5.0); POTASSIUM 3.6 mmol/L (3.5-4.5); SODIUM 133 mmol/L (135-145); TRIGLYCERIDES 108 mg/dL; VLDL CHOLESTEROL 22 mg/dL
[2024-04-15 06:55] LABS: THYROID STIMULATING HORMONE 0.58 uIU/mL (0.34-5.60)
[2024-04-15] MEDS: ACETAMINOPHEN 500 MG TABLET PO SCH (08:14)
[2024-04-15] MEDS: KETOROLAC 15 MG/ML VIAL IVP PRN (08:14)
[2024-04-15 10:40] LABS: ESTIMATED AVERAGE GLUCOSE 111 mg/dL (70-100); HEMOGLOBIN A1c% 5.5 % (4.27-6.07)
[2024-04-15] MEDS: oxyCODONE 5 MG TABLET PO PRN ×2 (10:48→16:00)
--- NOTE | 2024-04-15 11:42 | PROVIDER PROGRESS NOTE ---
Subjective - Prog Note Date Prog Note Date: 04/15/24 - Subjective Pt reports feeling: Improved ( pain comes and goes. Worse this morning, improving throughout the day. Denies fever, chills) Objective - Vital Signs/Intake & Output Reviewed Vital Signs: Yes Vital Signs: Vital Signs x48h Temp Pulse Resp BP Pulse Ox 04/15/24 08:12 37 C 87 18 101/64 93 04/15/24 05:00 37.5 C 95 24 94/60 95 Intake & Output: Intake & Output 04/12/24 04/13/24 04/14/24 04/15/24 23:59 23:59 23:59 23:59 Intake Total 1050 1200 Balance 1050 1200 - Objective General Appearance: positive: No acute distress Respiratory: positive: Chest non-tender, No respiratory distress Cardiovascular: positive: Regular rate & rhythm Abdomen: positive: Non-tender Skin: positive: Skin rash ( cellulitis on right side of face with Janelle drain) Neurologic/Psychiatric: positive: Oriented x3 - Lab Results Fish Bones: 04/15/24 05:55 04/15/24 05:55 Other Labs: Lab Results x24hrs 04/15/24 04/15/24 04/15/24 Range/Units 05:58 05:55 05:55 WBC (4.8-10.8) x10^3/uL RBC (4.70-6.10) 10^6/uL Hgb (14.0-18.0) g/dL Hct (42.0-52.0) % MCV (80.0-94.0) fL MCH (27.0-31.0) pg MCHC (32.0-36.0) g/dL RDW (12.0-15.0) % Plt Count (130-450) 10^3/uL MPV (7.4-11.4) fL Neut # (Auto) Lymph # (Auto) [place] # (Auto) Eos # (Auto) Baso # (Auto) Absolute Nucleated RBC Total Counted Band Neuts % (Manual) (0 - 10) % Abnorm Lymph % (Manual) % Nucleated RBC % Neutrophils # (Manual) (1.5-6.6) 10^3/uL Lymphocytes # (Manual) (1.5-3.5) 10^3/uL Monocytes # (Manual) (0.0-1.0) 10^3/uL Eosinophils # (Manual) (0-0.7) 10^3/uL Basophils # (Manual) (0-0.1) 10^3/uL Differential Comment WBC Morphology (NORMAL) Platelet Estimate (NORMAL) Platelet Morphology (NORMAL) RBC Morph Micro Appear (NORMAL) Sodium 133 L (135-145) mmol/L Potassium 3.6 (3.5-4.5) mmol/L Chloride 99 L (101-111) mmol/L Carbon Dioxide 28 (21-32) mmol/L Anion Gap 6.0 (6-13) BUN 15 (6-20) mg/dL Creatinine 0.7 (0.6-1.3) mg/dL Estimated GFR (MDRD) 121 (>89) Glucose 117 H (74-104) mg/dL Estimat Average Glucose 111 H (70-100) mg/dL Hemoglobin A1c % 5.5 (4.27-6.07) % Calcium 8.6 (8.5-10.3) mg/dL Phosphorus 1.8 L (2.5-5.0) mg/dL Magnesium 1.8 (1.7-2.3) mg/dL Total Bilirubin 0.8 (0.2-1.0) mg/dL AST 15 (10-42) IU/L ALT 10 (10-60) IU/L Alkaline Phosphatase 66 (42-121) IU/L Total Protein 6.0 L (6.4-8.9) g/dL Albumin 3.0 L (3.2-5.5) g/dL Globulin 3.0 (2.1-4.2) g/dL Albumin/Globulin Ratio 1.0 (1.0-2.2) Triglycerides 108 mg/dL Cholesterol 76 ( - 200) mg/dL LDL Cholesterol, Calc 34 ( - 129) mg/dL VLDL Cholesterol 22 mg/dL HDL Cholesterol 20 L (60 - ) mg/dL LDL/HDL Ratio 1.7 (<3.6) Cholesterol/HDL Ratio 3.8 (<5.0) Lipase (11-82) U/L TSH 0.58 (0.34-5.60) uIU/mL Nasal Screen MRSA (PCR) NEGATIVE (NEGATIVE) 04/15/24 04/14/24 04/14/24 Range/Units 05:55 18:50 18:50 WBC 26.1 H 32.1 H (4.8-10.8) x10^3/uL RBC 4.09 L 4.67 L (4.70-6.10) 10^6/uL Hgb 12.3 L 13.9 L (14.0-18.0) g/dL Hct 35.8 L 41.0 L (42.0-52.0) % MCV 87.5 87.8 (80.0-94.0) fL MCH 30.1 29.8 (27.0-31.0) pg MCHC 34.4 33.9 (32.0-36.0) g/dL RDW 12.8 12.5 (12.0-15.0) % Plt Count 198 225 (130-450) 10^3/uL MPV 9.0 8.9 (7.4-11.4) fL Neut # (Auto) Not Reportable Lymph # (Auto) Not Reportable [place] # (Auto) Not Reportable Eos # (Auto) Not Reportable Baso # (Auto) Not Reportable Absolute Nucleated RBC Not Reportable Total Counted 100 Band Neuts % (Manual) 16 H (0 - 10) % Abnorm Lymph % (Manual) 0 % Nucleated RBC % Not Reportable Neutrophils # (Manual) 30.5 H (1.5-6.6) 10^3/uL Lymphocytes # (Manual) 0.6 L (1.5-3.5) 10^3/uL Monocytes # (Manual) 1.0 (0.0-1.0) 10^3/uL Eosinophils # (Manual) 0.0 (0-0.7) 10^3/uL Basophils # (Manual) 0.0 (0-0.1) 10^3/uL Differential Comment MANUAL DIFFERENTIAL WBC Morphology PELGER HUET ANOMALY (NORMAL) Platelet Estimate NORMAL (130-450,000) (NORMAL) Platelet Morphology 1+ LARGE PLATELETS (NORMAL) RBC Morph Micro Appear NORMAL APPEARANCE (NORMAL) Sodium 132 L (135-145) mmol/L Potassium 3.4 L (3.5-4.5) mmol/L Chloride 93 L (101-111) mmol/L Carbon Dioxide 31 (21-32) mmol/L Anion Gap 8.0 (6-13) BUN 19 (6-20) mg/dL Creatinine 1.0 (0.6-1.3) mg/dL Estimated GFR (MDRD) 80 L (>89) Glucose 155 H (74-104) mg/dL Estimat Average Glucose (70-100) mg/dL Hemoglobin A1c % (4.27-6.07) % Calcium 9.4 (8.5-10.3) mg/dL Phosphorus (2.5-5.0) mg/dL Magnesium (1.7-2.3) mg/dL Total Bilirubin 0.7 (0.2-1.0) mg/dL AST 12 (10-42) IU/L ALT 11 (10-60) IU/L Alkaline Phosphatase 67 (42-121) IU/L Total Protein 7.6 (6.4-8.9) g/dL Albumin 3.7 (3.2-5.5) g/dL Globulin 3.9 (2.1-4.2) g/dL Albumin/Globulin Ratio 0.9 L (1.0-2.2) Triglycerides mg/dL Cholesterol ( - 200) mg/dL LDL Cholesterol, Calc ( - 129) mg/dL VLDL Cholesterol mg/dL HDL Cholesterol (60 - ) mg/dL LDL/HDL Ratio (<3.6) Cholesterol/HDL Ratio (<5.0) Lipase < 10 L (11-82) U/L TSH (0.34-5.60) uIU/mL Nasal Screen MRSA (PCR) (NEGATIVE) - Diagnostic Imaging Diagnostic Imaging Results: positive: Final report reviewed ABX Reporting Has patient been on IV antibiotics over the past 48 hours?: Yes Sepsis Event Note (H) - Evaluation Current Stage of Sepsis: Ruled out (did not meet SIRS criteria on admission) Assessment/Plan - Problem List (1) Facial cellulitis Impression: Following surgical cultures Unasyn WBC trending down ENT consulted by prior provider, [place] drain placed overnight with minimal output Likely de-escalate to p.o. antibiotics tomorrow Will consider blood cultures if he spikes a fever, or his WBC increases (2) Hypokalemia Impression: replete and recheck (3) Dental infection Impression: antibiotics as above Pain management with scheduled Tylenol, as needed Toradol and hydromorphone He is getting regular hydromorphone as he currently has an acute indication for IV pain medicine, will de-escalate as tolerated as he has history of substance abuse Will likely need outpatient follow-up
[2024-04-15] MEDS: MULTIVITAMIN W/MINERALS TABLET PO SCH (12:09)
--- NOTE | 2024-04-15 12:48 | PROVIDER PROGRESS NOTE ---
Subjective - General Admit Date: 04/14/24 Procedure Date: 04/14/24 Post Op Days: 1 Procedure Performed: I&D R temporal region - Review of Systems Wound/Incisions: positive: Healing well, Drainage (serosanguinous. No bleeding.) Drain Type: 1/4 inch mik Approximate mls Output: 5 General: negative: Fever, Weakness HEENT: positive: Other (No tooth pain. No throat swelling. Pain in the R temporal region associated with the drain.) Objective - Patient Data Vital Signs: Vital Signs x48h Temp Pulse Resp BP Pulse Ox 04/15/24 08:12 37 C 87 18 101/64 93 04/15/24 05:00 37.5 C 95 24 94/60 95 Weight: Weight 04/13/24 04/14/24 04/15/24 23:59 23:59 23:59 Weight (kg) 73.5 kg 73.5 kg Intake & Output: Intake and Output Totals x24h 04/13/24 04/14/24 04/15/24 23:59 23:59 23:59 Intake Total 1050 1200 Balance 1050 1200 - Lab Results Lab Results: 04/15/24 05:55 04/15/24 05:55 Other Lab Results: Lab Results x24hrs 04/15/24 04/15/24 04/15/24 Range/Units 05:58 05:55 05:55 WBC (4.8-10.8) x10^3/uL RBC (4.70-6.10) 10^6/uL Hgb (14.0-18.0) g/dL Hct (42.0-52.0) % MCV (80.0-94.0) fL MCH (27.0-31.0) pg MCHC (32.0-36.0) g/dL RDW (12.0-15.0) % Plt Count (130-450) 10^3/uL MPV (7.4-11.4) fL Neut # (Auto) Lymph # (Auto) [place] # (Auto) Eos # (Auto) Baso # (Auto) Absolute Nucleated RBC Total Counted Band Neuts % (Manual) (0 - 10) % Abnorm Lymph % (Manual) % Nucleated RBC % Neutrophils # (Manual) (1.5-6.6) 10^3/uL Lymphocytes # (Manual) (1.5-3.5) 10^3/uL Monocytes # (Manual) (0.0-1.0) 10^3/uL Eosinophils # (Manual) (0-0.7) 10^3/uL Basophils # (Manual) (0-0.1) 10^3/uL Differential Comment WBC Morphology (NORMAL) Platelet Estimate (NORMAL) Platelet Morphology (NORMAL) RBC Morph Micro Appear (NORMAL) Sodium 133 L (135-145) mmol/L Potassium 3.6 (3.5-4.5) mmol/L Chloride 99 L (101-111) mmol/L Carbon Dioxide 28 (21-32) mmol/L Anion Gap 6.0 (6-13) BUN 15 (6-20) mg/dL Creatinine 0.7 (0.6-1.3) mg/dL Estimated GFR (MDRD) 121 (>89) Glucose 117 H (74-104) mg/dL Estimat Average Glucose 111 H (70-100) mg/dL Hemoglobin A1c % 5.5 (4.27-6.07) % Calcium 8.6 (8.5-10.3) mg/dL Phosphorus 1.8 L (2.5-5.0) mg/dL Magnesium 1.8 (1.7-2.3) mg/dL Total Bilirubin 0.8 (0.2-1.0) mg/dL AST 15 (10-42) IU/L ALT 10 (10-60) IU/L Alkaline Phosphatase 66 (42-121) IU/L Total Protein 6.0 L (6.4-8.9) g/dL Albumin 3.0 L (3.2-5.5) g/dL Globulin 3.0 (2.1-4.2) g/dL Albumin/Globulin Ratio 1.0 (1.0-2.2) Triglycerides 108 mg/dL Cholesterol 76 ( - 200) mg/dL LDL Cholesterol, Calc 34 ( - 129) mg/dL VLDL Cholesterol 22 mg/dL HDL Cholesterol 20 L (60 - ) mg/dL LDL/HDL Ratio 1.7 (<3.6) Cholesterol/HDL Ratio 3.8 (<5.0) Lipase (11-82) U/L TSH 0.58 (0.34-5.60) uIU/mL Nasal Screen MRSA (PCR) NEGATIVE (NEGATIVE) 04/15/24 04/14/24 04/14/24 Range/Units 05:55 18:50 18:50 WBC 26.1 H 32.1 H (4.8-10.8) x10^3/uL RBC 4.09 L 4.67 L (4.70-6.10) 10^6/uL Hgb 12.3 L 13.9 L (14.0-18.0) g/dL Hct 35.8 L 41.0 L (42.0-52.0) % MCV 87.5 87.8 (80.0-94.0) fL MCH 30.1 29.8 (27.0-31.0) pg MCHC 34.4 33.9 (32.0-36.0) g/dL RDW 12.8 12.5 (12.0-15.0) % Plt Count 198 225 (130-450) 10^3/uL MPV 9.0 8.9 (7.4-11.4) fL Neut # (Auto) Not Reportable Lymph # (Auto) Not Reportable [place] # (Auto) Not Reportable Eos # (Auto) Not Reportable Baso # (Auto) Not Reportable Absolute Nucleated RBC Not Reportable Total Counted 100 Band Neuts % (Manual) 16 H (0 - 10) % Abnorm Lymph % (Manual) 0 % Nucleated RBC % Not Reportable Neutrophils # (Manual) 30.5 H (1.5-6.6) 10^3/uL Lymphocytes # (Manual) 0.6 L (1.5-3.5) 10^3/uL Monocytes # (Manual) 1.0 (0.0-1.0) 10^3/uL Eosinophils # (Manual) 0.0 (0-0.7) 10^3/uL Basophils # (Manual) 0.0 (0-0.1) 10^3/uL Differential Comment MANUAL DIFFERENTIAL WBC Morphology PELGER HUET ANOMALY (NORMAL) Platelet Estimate NORMAL (130-450,000) (NORMAL) Platelet Morphology 1+ LARGE PLATELETS (NORMAL) RBC Morph Micro Appear NORMAL APPEARANCE (NORMAL) Sodium 132 L (135-145) mmol/L Potassium 3.4 L (3.5-4.5) mmol/L Chloride 93 L (101-111) mmol/L Carbon Dioxide 31 (21-32) mmol/L Anion Gap 8.0 (6-13) BUN 19 (6-20) mg/dL Creatinine 1.0 (0.6-1.3) mg/dL Estimated GFR (MDRD) 80 L (>89) Glucose 155 H (74-104) mg/dL Estimat Average Glucose (70-100) mg/dL Hemoglobin A1c % (4.27-6.07) % Calcium 9.4 (8.5-10.3) mg/dL Phosphorus (2.5-5.0) mg/dL Magnesium (1.7-2.3) mg/dL Total Bilirubin 0.7 (0.2-1.0) mg/dL AST 12 (10-42) IU/L ALT 11 (10-60) IU/L Alkaline Phosphatase 67 (42-121) IU/L Total Protein 7.6 (6.4-8.9) g/dL Albumin 3.7 (3.2-5.5) g/dL Globulin 3.9 (2.1-4.2) g/dL Albumin/Globulin Ratio 0.9 L (1.0-2.2) Triglycerides mg/dL Cholesterol ( - 200) mg/dL LDL Cholesterol, Calc ( - 129) mg/dL VLDL Cholesterol mg/dL HDL Cholesterol (60 - ) mg/dL LDL/HDL Ratio (<3.6) Cholesterol/HDL Ratio (<5.0) Lipase < 10 L (11-82) U/L TSH (0.34-5.60) uIU/mL Nasal Screen MRSA (PCR) (NEGATIVE) - Current Medications Current Medications: Current Medications Generic Name Dose Route Start Last Admin Trade Name Freq PRN Reason Stop Dose Admin Acetaminophen 1,000 mg 04/15/24 08:00 04/15/24 08:14 Acetaminophen 500 Mg Tablet PO 1,000 mg Q8H BALTA Administration Ampicillin Sodium/Sulbactam 100 mls @ 200 mls/hr 04/15/24 00:00 04/15/24 12:09 Sodium 3 gm/ Sodium Chloride IV 200 mls/hr Q6HR BALTA Administration Ketorolac Tromethamine 15 mg 04/15/24 07:12 04/15/24 08:14 Ketorolac 15 Mg/Ml Vial IVP 04/20/24 07:11 15 mg Q6HR PRN Administration Severe Pain (Level 7-10) Multivitamins/Minerals 1 tab 04/15/24 12:00 04/15/24 12:09 Multivitamin W/Minerals Tablet PO 1 tab DAILYWM BALTA Administration Oxycodone HCl 5 mg 04/15/24 07:13 04/15/24 10:48 Oxycodone 5 Mg Tablet PO 5 mg Q4HR PRN Administration Moderate Pain (Level 4-6) Sodium Chloride 10 ml 04/15/24 01:00 04/15/24 08:15 Sodium Chloride Flush 0.9% 10 Ml Syringe IVP 10 ml 0100,0900,1700 BALTA Administration - Physical Exam Wound/Incisions: positive: Other (Mild SS drainage. Swelling similar to yesterday) ENT: positive: Other (GIL 35mm. Vestibules non-edematous, non-tender. Dentition non-tender FOM s, nt, ne) Neck: positive: Other (Swelling stops at inferior border of mandible.) Impression/Plan - Problem List Problem List: 44 yo M POD #1 I&D R temporal region - WBC trending down - afebrile overnight - No micro results yet <> continue IV antibiotics. Follow cultures. Etiology of cellulitis is odontogenic vs parotitis vs skin. Cover w/ Vanc and Unasyn <> Took drain out today. Output was low. It was causing severe pain. <> continue to follow. Re-CT if swelling worsens. <> daily am cbc w/ dif Appreciate IM assistance Please call w/ any questions Uli Lepe DDS [phone]
[2024-04-15] MEDS: LORazepam 2 MG/ML VIAL IVP ONE (16:00)
[2024-04-15] MEDS ORDERED: NALOXONE 0.4 MG/ML VIAL IVP PRN (16:26)
[2024-04-15] MEDS: NEUTRA-PHOS 250 MG TABLET PO SCH (18:19)
[2024-04-15] MEDS: SODIUM CHLORIDE FLUSH 0.9% 10 ML SYRINGE IVP PRN (22:33)
--- NOTE | 2024-04-16 00:30 | PROVIDER PROGRESS NOTE ---
Electricity Trading Analyst Note - Electricity Trading Analyst Note Electricity Trading Analyst Note: RN paged "t admitted for facial cellulitis and receiving IV antibiotics. PT also abuses cocaine, meth, and heroine. Tonight he has been throwing stuff in room is shaky, sweaty, and hearing and seeing things. Pt states he usually takes methadone daily for kicking fentanyl and goes to [facility] methadone clinic in [place], and drinks daily until he passes out. It has been almost 3 days since he drank last and 1 week since last dose of methadone. Pain is all over he states and is a 20 out of 10. Can we please get orders for CIWA protocol, get ativian orders, and possibly IV pain medication ordered. Thank you!" Added CIWA and diazepam standing. The fact patient has not received methadone x 1 wk means likely does not need methadone vs not on it as treatment. will add oxycodone 10mg for severe pain. additionally, since patient admits to having predisposition for opioid abuse, best to treat facial cellulitis with oral pain meds Robert Sy
[2024-04-16] MEDS: diazePAM INJ 5 MG/ML SYRINGE IVP SCH ×2 (00:44→09:25)
[2024-04-16] MEDS: LORazepam 2 MG/ML VIAL IVP PRN ×2 (00:59→07:16)
[2024-04-16] MEDS ORDERED: HALOPERIDOL 5 MG/ML VIAL IM PRN (06:35)
--- NOTE | 2024-04-16 06:42 | PROVIDER PROGRESS NOTE ---
Buckram Sewer Note - Buckram Sewer Note Buckram Sewer Note: RN paged to report patient agitated and combative and physcially aggressive with staff. Patient in "locked" restraints. Per hospital agreement, Telemed Hospitalist will place orders however ED staff will need to see patient and enter exam. [facility] Buckram Sewer
[2024-04-16 06:44] LABS: BASOPHILS # (AUTO) 0.1 10^3/uL (0.0-0.1); BASOPHILS % (AUTO) 0.3 %; EOSINOPHILS # (AUTO) 0.2 10^3/uL (0.0-0.7); EOSINOPHILS % (AUTO) 0.8 %; HCT - HEMATOCRIT 38.1 % (42.0-52.0); HGB - HEMOGLOBIN 12.2 g/dL (14.0-18.0); LYMPHOCYTES # (AUTO) 1.7 10^3/uL (1.5-3.5); LYMPHOCYTES % (AUTO) 8.9 %; MEAN CORPUSCULAR HEMOGLOBIN 28.9 pg (27.0-31.0); MEAN CORPUSCULAR VOLUME 90.3 fL (80.0-94.0); MEAN PLATELET VOLUME 9.4 fL (7.4-11.4); MONOCYTES # (AUTO) 1.1 10^3/uL (0.0-1.0); NEUTROPHILS # (AUTO) 15.6 10^3/uL (1.5-6.6); NEUTROPHILS % (AUTO) 82.4 %; PLT - PLATELET COUNT 261 10^3/uL (130-450); RED BLOOD COUNT 4.22 10^6/uL (4.70-6.10); RED CELL DISTRIBUTION WIDTH 13.2 % (12.0-15.0)
--- NOTE | 2024-04-16 07:25 | PROVIDER PROGRESS NOTE ---
Restraint [id number] - Immediate Situation Face to Face Evaluation Date: 04/16/24 Face to Face Evaluation Time: 07:00 Restraint Classification: Violent, Physical Hold, w/ Chemical - Patient's Reaction & Behaviors Safety: Physically unsafe Verbal: Screaming/Yelling Harm: Actual harm to others, Potential harm to self Physical: Fighting restraints Other: Attempting removal of medically necessary device(s) - Behavioral Condition Attitude: Guarded Behavior: Uncooperative Orientation: Person Mood: Angry - Evaluation Current Medical Condition Relating to Need for Restraint: Polysubstance abuse with withdrawal, concern for delirium tremens Pertinent History/Illicit Drugs/Medications/Results: Polysubstance abuse call, heroin, amphetamines
[2024-04-16 07:52] LABS: INR 1.3 (0.8-1.2); PT - PROTHROMBIN TIME 13.9 secs (9.9-12.6)
[2024-04-16 07:57] LABS: ALBUMIN 2.8 g/dL (3.2-5.5); BILIRUBIN,TOTAL 0.5 mg/dL (0.2-1.0); CALCIUM 8.4 mg/dL (8.5-10.3); CREATININE 0.7 mg/dL (0.6-1.3); POTASSIUM 3.1 mmol/L (3.5-4.5); TOTAL PROTEIN 5.6 g/dL (6.4-8.9)
[2024-04-16] MEDS: HALOPERIDOL 5 MG/ML VIAL IVP STA (07:58)
[2024-04-16] MEDS: SODIUM CHLORIDE 0.9% 1,000 ML IV SCH (08:00)
[2024-04-16] MEDS ORDERED: PRENATAL VITAMIN TABLET PO SCH (08:00)
[2024-04-16] MEDS: DEXMEDETOMIDINE 400 MCG/100 ML 100 ML IV PRN (08:09)
--- NOTE | 2024-04-16 08:36 | PROVIDER PROGRESS NOTE ---
Subjective - Prog Note Date Prog Note Date: 04/16/24 - Subjective Pt reports feeling: Worse ( screaming and fighting against restraints) Objective - Vital Signs/Intake & Output Reviewed Vital Signs: Yes Vital Signs: Vital Signs Temp Pulse Resp BP Pulse Ox 04/16/24 08:30 104 H 23 112/71 98 04/16/24 06:50 36.6 C 73 20 111/69 97 Intake & Output: Intake & Output 04/13/24 04/14/24 04/15/24 04/16/24 23:59 23:59 23:59 23:59 Intake Total 1050 1720 577 Balance 1050 1720 577 - Objective General Appearance: positive: Anxious ( extremely agitated with facial flushing, thrashing against restraints) Respiratory: positive: Chest non-tender, No respiratory distress Cardiovascular: positive: Tachycardia Abdomen: positive: Non-tender Skin: positive: Skin rash Extremities: positive: Non-tender Neurologic/Psychiatric: positive: Other ( not interactive with interview, intermittently screaming. Moves extremities/neck freely) - Lab Results Fish Bones: 04/16/24 06:20 04/16/24 07:33 Other Labs: Lab Results x24hrs 04/16/24 04/16/24 04/16/24 Range/Units 07:33 07:33 07:33 WBC (4.8-10.8) x10^3/uL RBC (4.70-6.10) 10^6/uL Hgb (14.0-18.0) g/dL Hct (42.0-52.0) % MCV (80.0-94.0) fL MCH (27.0-31.0) pg MCHC (32.0-36.0) g/dL RDW (12.0-15.0) % Plt Count (130-450) 10^3/uL MPV (7.4-11.4) fL Neut # (Auto) (1.5-6.6) 10^3/uL Lymph # (Auto) (1.5-3.5) 10^3/uL [place] # (Auto) (0.0-1.0) 10^3/uL Eos # (Auto) (0.0-0.7) 10^3/uL Baso # (Auto) (0.0-0.1) 10^3/uL Absolute Nucleated RBC x10^3/uL Nucleated RBC % /100WBC PT 13.9 H (9.9-12.6) secs INR 1.3 H (0.8-1.2) Sodium 137 Potassium 3.1 L Chloride 103 Carbon Dioxide 27 Anion Gap 7.0 BUN 17 Creatinine 0.7 Estimated GFR (MDRD) 121 Glucose 105 H Estimat Average Glucose (70-100) mg/dL Hemoglobin A1c % (4.27-6.07) % Calcium 8.4 L Phosphorus 1.5 L (2.5-5.0) mg/dL Total Bilirubin 0.5 (0.2-1.0) mg/dL AST 21 (10-42) IU/L ALT 17 (10-60) IU/L Alkaline Phosphatase 59 (42-121) IU/L Total Protein 5.6 L (6.4-8.9) g/dL Albumin 2.8 L (3.2-5.5) g/dL Globulin 2.8 (2.1-4.2) g/dL Albumin/Globulin Ratio 1.0 (1.0-2.2) 04/16/24 04/16/24 04/15/24 Range/Units 06:20 06:20 05:55 WBC 19.0 H (4.8-10.8) x10^3/uL RBC 4.22 L (4.70-6.10) 10^6/uL Hgb 12.2 L (14.0-18.0) g/dL Hct 38.1 L (42.0-52.0) % MCV 90.3 (80.0-94.0) fL MCH 28.9 (27.0-31.0) pg MCHC 32.0 (32.0-36.0) g/dL RDW 13.2 (12.0-15.0) % Plt Count 261 (130-450) 10^3/uL MPV 9.4 (7.4-11.4) fL Neut # (Auto) 15.6 H (1.5-6.6) 10^3/uL Lymph # (Auto) 1.7 (1.5-3.5) 10^3/uL [place] # (Auto) 1.1 H (0.0-1.0) 10^3/uL Eos # (Auto) 0.2 (0.0-0.7) 10^3/uL Baso # (Auto) 0.1 (0.0-0.1) 10^3/uL Absolute Nucleated RBC 0.00 x10^3/uL Nucleated RBC % 0.0 /100WBC PT (9.9-12.6) secs INR (0.8-1.2) Sodium TNP Potassium TNP Chloride TNP Carbon Dioxide TNP Anion Gap TNP BUN TNP Creatinine TNP Estimated GFR (MDRD) TNP Glucose TNP Estimat Average Glucose 111 H (70-100) mg/dL Hemoglobin A1c % 5.5 (4.27-6.07) % Calcium TNP Phosphorus (2.5-5.0) mg/dL Total Bilirubin (0.2-1.0) mg/dL AST (10-42) IU/L ALT (10-60) IU/L Alkaline Phosphatase (42-121) IU/L Total Protein (6.4-8.9) g/dL Albumin (3.2-5.5) g/dL Globulin (2.1-4.2) g/dL Albumin/Globulin Ratio (1.0-2.2) Sepsis Event Note (H) - Evaluation Current Stage of Sepsis: Ruled out (did not meet SIRS criteria on admission) Assessment/Plan - Problem List (1) Alcohol withdrawal delirium, acute, hyperactive Impression: Known history of polysubstance abuse including alcohol, heroin Changing status to inpatient ICU for delirium tremens CIWA protocol with high-dose Ativan, scheduled Valium, Precedex drip 4 point restraints Nutritional supplementation when delirium resolves Seizure precautions One-time dose Haldol Given polysubstance abuse, will add IV Dilaudid 1 mg as needed during the acute withdrawal phase (2) Facial cellulitis Impression: Following surgical cultures Unasyn WBC trending down ENT consulted by prior provider, Janelle drain removed 04/15/2024 Likely de-escalate to p.o. antibiotics tomorrow per ENT recs Will consider blood cultures if he spikes a fever, or his WBC increases (3) Hypokalemiaresolved Impression: (4) Dental infection Impression: antibiotics as above Pain management with scheduled Tylenol, As needed Dilaudid 1 mg
[2024-04-16] MEDS ORDERED: THIAMINE 100 MG TABLET PO SCH (09:00)
[2024-04-16] MEDS: polyethylene glycoL 3350 17 GM PACKET PO SCH (10:15)
[2024-04-16] MEDS: THIAMINE 100 MG TABLET PO SCH (10:15)
[2024-04-16] MEDS: PRENATAL VITAMIN TABLET PO SCH (10:16)
[2024-04-16] MEDS: OLANZapine 10 MG VIAL IM ONE (10:23)
--- NOTE | 2024-04-16 10:29 | PROVIDER PROGRESS NOTE ---
Restraint [id number] - Immediate Situation Face to Face Evaluation Date: 04/16/24 Face to Face Evaluation Time: 10:27 Restraint Classification: Violent, Physical Hold, w/ Chemical - Patient's Reaction & Behaviors Safety: Physically unsafe Harm: Actual harm to self Physical: Fighting restraints Other: Attempting removal of medically necessary device(s) - Behavioral Condition Attitude: Other Behavior: Uncooperative, Agitated Orientation: Non-responsive ( active, but does not answer questions) Mood: Anxious - Evaluation Pertinent History/Illicit Drugs/Medications/Results: Polysubstance abuse call, heroin, amphetamines - Plan Need to Initiate/Renew Violent or Chemical Restraint: ongoing
[2024-04-16] MEDS: HYDROmorphone 1 MG/ML CARPUJECT IVP PRN (11:08)
[2024-04-16] MEDS: diazePAM INJ 5 MG/ML SYRINGE IM STA (11:12)
--- NOTE | 2024-04-16 14:45 | PROVIDER PROGRESS NOTE ---
Restraint [id number] - Immediate Situation Face to Face Evaluation Date: 04/16/24 Face to Face Evaluation Time: 14:44 Restraint Classification: Violent, Physical - Locked Restraint - Patient's Reaction & Behaviors Safety: Physically safe Harm: Actual harm to self Physical: Aggressive behavior, Fighting restraints Other: Attempting removal of medically necessary device(s) - Behavioral Condition Attitude: Other Behavior: Withdrawn Orientation: Non-responsive Mood: Other - Evaluation Pertinent History/Illicit Drugs/Medications/Results: Polysubstance abuse call, heroin, amphetamines
--- NOTE | 2024-04-16 15:36 | CONSULTATION NOTE ---
Consultation Report: Called for IV access for a patient with history of IV drug abuse and difficult IV placement. Nursing had tried multiple times without success. Spoke with Patrick Justice NP and he felt the patient did not need a central line but rather better IV access. Ultrasound image of the right upper arm showed a large basilic vein. #20G 2.25in Accucath IV cath was inserted under US guidance and the right basilic vein was cannulated. There was positive blood return and line flushed with ease. Patient tolerated well. Line secured.
--- NOTE | 2024-04-16 17:47 | PROVIDER PROGRESS NOTE ---
Restraint Jqoy-ct-Mrqo - Immediate Situation Face to Face Evaluation Date: 04/16/24 Face to Face Evaluation Time: 17:47 Restraint Classification: Violent, Physical Hold, w/ Chemical - Patient's Reaction & Behaviors Safety: Physically unsafe Harm: Actual harm to self Physical: Aggressive behavior Other: Resting quietly - Behavioral Condition Attitude: Indifferent Behavior: Withdrawn Orientation: Non-responsive Mood: Other - Evaluation Pertinent History/Illicit Drugs/Medications/Results: Polysubstance abuse call, heroin, amphetamines - Plan Need to Initiate/Renew Violent or Chemical Restraint: yes
[2024-04-16] MEDS ORDERED: POTASSIUM CHLOR 10 MEQ/100 ML 10 MEQ/100 ML BAG IV SCH (18:00)
--- NOTE | 2024-04-16 18:19 | PROVIDER PROGRESS NOTE ---
Subjective - General Admit Date: 04/16/24 Procedure Date: 04/14/24 Post Op Days: 2 Procedure Performed: I&D R temporal region - Review of Systems Wound/Incisions: positive: Other (Mild SS drainage. Swelling similar to yesterday) Drain Type: 1/4 inch mik Approximate mls Output: 5 General: negative: Fever, Weakness HEENT: positive: Other (No tooth pain. No throat swelling. Pain in the R temporal region associated with the drain.) - Other Other Information/Narrative: Moved to ICU today for withdrawal. In restraints. Sedated. Not intubated. Afebrile overnight. No reported changes in his symptoms. Unable to report symptoms Objective - Patient Data Reviewed Vital Signs: Yes Vital Signs: Vital Signs x48h Temp Pulse Pulse Resp BP BP Pulse Ox 04/16/24 17:00 54 L 16 104/71 97 04/16/24 16:00 36.7 C 64 19 112/76 98 04/16/24 15:00 81 20 108/73 100 04/16/24 14:00 48 L 22 114/75 99 04/16/24 13:00 46 L 49 L 18 104/69 105/67 98 04/16/24 12:00 36.4 C L 52 L 26 H 103/74 97 04/16/24 11:00 55 L 54 L 16 111/73 103/76 97 Weight: Weight 04/14/24 04/15/24 04/16/24 23:59 23:59 23:59 Weight (kg) 73.5 kg 73.5 kg Intake & Output: Intake and Output Totals x24h 04/14/24 04/15/24 04/16/24 23:59 23:59 23:59 Intake Total 1050 1720 1691.168 Balance 1050 1720 1691.168 - Lab Results Lab Results: 04/16/24 06:20 04/16/24 07:33 Other Lab Results: Lab Results x24hrs 04/16/24 04/16/24 04/16/24 Range/Units 07:33 07:33 07:33 WBC (4.8-10.8) x10^3/uL RBC (4.70-6.10) 10^6/uL Hgb (14.0-18.0) g/dL Hct (42.0-52.0) % MCV (80.0-94.0) fL MCH (27.0-31.0) pg MCHC (32.0-36.0) g/dL RDW (12.0-15.0) % Plt Count (130-450) 10^3/uL MPV (7.4-11.4) fL Neut # (Auto) (1.5-6.6) 10^3/uL Lymph # (Auto) (1.5-3.5) 10^3/uL [place] # (Auto) (0.0-1.0) 10^3/uL Eos # (Auto) (0.0-0.7) 10^3/uL Baso # (Auto) (0.0-0.1) 10^3/uL Absolute Nucleated RBC x10^3/uL Nucleated RBC % /100WBC PT 13.9 H (9.9-12.6) secs INR 1.3 H (0.8-1.2) Sodium 137 Potassium 3.1 L Chloride 103 Carbon Dioxide 27 Anion Gap 7.0 BUN 17 Creatinine 0.7 Estimated GFR (MDRD) 121 Glucose 105 H Calcium 8.4 L Phosphorus 1.5 L (2.5-5.0) mg/dL Total Bilirubin 0.5 (0.2-1.0) mg/dL AST 21 (10-42) IU/L ALT 17 (10-60) IU/L Alkaline Phosphatase 59 (42-121) IU/L Total Protein 5.6 L (6.4-8.9) g/dL Albumin 2.8 L (3.2-5.5) g/dL Globulin 2.8 (2.1-4.2) g/dL Albumin/Globulin Ratio 1.0 (1.0-2.2) 04/16/24 04/16/24 Range/Units 06:20 06:20 WBC 19.0 H (4.8-10.8) x10^3/uL RBC 4.22 L (4.70-6.10) 10^6/uL Hgb 12.2 L (14.0-18.0) g/dL Hct 38.1 L (42.0-52.0) % MCV 90.3 (80.0-94.0) fL MCH 28.9 (27.0-31.0) pg MCHC 32.0 (32.0-36.0) g/dL RDW 13.2 (12.0-15.0) % Plt Count 261 (130-450) 10^3/uL MPV 9.4 (7.4-11.4) fL Neut # (Auto) 15.6 H (1.5-6.6) 10^3/uL Lymph # (Auto) 1.7 (1.5-3.5) 10^3/uL [place] # (Auto) 1.1 H (0.0-1.0) 10^3/uL Eos # (Auto) 0.2 (0.0-0.7) 10^3/uL Baso # (Auto) 0.1 (0.0-0.1) 10^3/uL Absolute Nucleated RBC 0.00 x10^3/uL Nucleated RBC % 0.0 /100WBC PT (9.9-12.6) secs INR (0.8-1.2) Sodium TNP Potassium TNP Chloride TNP Carbon Dioxide TNP Anion Gap TNP BUN TNP Creatinine TNP Estimated GFR (MDRD) TNP Glucose TNP Calcium TNP Phosphorus (2.5-5.0) mg/dL Total Bilirubin (0.2-1.0) mg/dL AST (10-42) IU/L ALT (10-60) IU/L Alkaline Phosphatase (42-121) IU/L Total Protein (6.4-8.9) g/dL Albumin (3.2-5.5) g/dL Globulin (2.1-4.2) g/dL Albumin/Globulin Ratio (1.0-2.2) - Current Medications Current Medications: Current Medications Generic Name Dose Route Start Last Admin Trade Name Freq PRN Reason Stop Dose Admin Acetaminophen 1,000 mg 04/15/24 08:00 04/16/24 17:47 Acetaminophen 500 Mg Tablet PO Not Given Q8H BALTA Diazepam 10 mg 04/16/24 08:00 04/16/24 15:11 Diazepam Inj 5 Mg/Ml Syringe IVP 04/18/24 12:00 Not Given TID BALTA Hydromorphone HCl 1 mg 04/16/24 10:06 04/16/24 14:04 Hydromorphone 1 Mg/Ml Carpuject IVP 1 mg Q2HR PRN Administration Severe Pain (Level 7-10) Ampicillin Sodium/Sulbactam 100 mls @ 200 mls/hr 04/15/24 00:00 04/16/24 18:06 Sodium 3 gm/ Sodium Chloride IV 200 mls/hr Q6HR BALTA Administration Dexmedetomidine/Sodium Chloride 100 mls @ 3.675 mls/hr 04/16/24 07:51 04/16/24 14:25 Precedex Premix IV 0.2 mcg/kg/hr .[id number] PRN 3.675 mls/hr Agitation Titration Protocol 0.2 MCG/KG/HR Sodium Chloride 1,000 mls @ 125 mls/hr 04/16/24 08:00 04/16/24 18:06 Normal Saline 0.9% IV 04/16/24 23:59 125 mls/hr .Q8H BALTA Administration Ketorolac Tromethamine 15 mg 04/15/24 07:12 04/16/24 16:07 Ketorolac 15 Mg/Ml Vial IVP 04/20/24 07:11 15 mg Q6HR PRN Administration Severe Pain (Level 7-10) Lorazepam 1 mg 04/16/24 00:31 04/16/24 06:47 Lorazepam 2 Mg/Ml Vial IVP 1 mg Q30M PRN Administration CIWA >8 Protocol Lorazepam 2 - 20 mg 04/16/24 07:08 04/16/24 18:10 Lorazepam 2 Mg/Ml Vial IVP 8 mg Q15M PRN Administration RASS > 0 Protocol Oxycodone HCl 5 mg 04/15/24 07:13 04/15/24 23:53 Oxycodone 5 Mg Tablet PO 5 mg Q4HR PRN Administration Moderate Pain (Level 4-6) Polyethylene Glycol 17 gm 04/16/24 09:00 04/16/24 10:15 Polyethylene Glycol 3350 17 Gm Packet PO Not Given DAILY BALTA Multivit/Folic Acid/Iron 1 tab 04/16/24 08:00 04/16/24 10:16 Vitamin Tablet PO Not Given DAILYWM BALTA Sodium Chloride 10 ml 04/14/24 22:12 04/15/24 22:33 Sodium Chloride Flush 0.9% 10 Ml Syringe IVP 10 ml PRN PRN Administration NEEDED PER PROVIDER ORDERS Sodium Chloride 10 ml 04/15/24 01:00 04/16/24 10:17 Sodium Chloride Flush 0.9% 10 Ml Syringe IVP 10 ml 0100,0900,1700 [facility] Administration Sodium Phosphate 250 mg 04/15/24 17:00 04/16/24 17:48 Neutra-Phos 250 Mg Tablet PO Not Given TIDWM BALTA Thiamine HCl 100 mg 04/16/24 09:00 04/16/24 10:15 Thiamine 100 Mg Tablet PO Not Given DAILY BALTA - Physical Exam Wound/Incisions: positive: Other (No drainage. Swelling of the R face stable, maybe a little softer. No decrease in size. No spreading of the cellulitis below the angle of the mandible.) ABX Reporting Has patient been on IV antibiotics over the past 48 hours?: Yes Impression/Plan - Problem List Problem List: 44 yo M POD #2 I&D of the R temporal region. Clinical exam not improving much since admission WBC trending down again today Because of w/drawal, difficult to know if he has improved symptoms today. Plan: - daily am cbc - continue IV abx - If no improvement by tomorrow, CT max/face with contrast. The last CT didn't capture the entire superior aspect of the cellulitis. This CT needs to extend to the apex of the head. Please call w/ any questions Uli Lepe DDS [phone]
[2024-04-16] MEDS: diazePAM INJ 5 MG/ML SYRINGE IVP ONE (18:28)
[2024-04-16] MEDS: POTASSIUM PHOSPHATE 21 MMOL in SODIUM CHLORIDE 0.9% 250 ML IV ONE (18:41)
[2024-04-17 02:59] LABS: COCAINE SCREEN URINE NEGATIVE (NEGATIVE); METHAMPHETAMINES SCREEN, URINE NEGATIVE (NEGATIVE); THC CANNABINOID SCREEN, URINE NEGATIVE (NEGATIVE)
[2024-04-17 03:00] LABS: AMPHETAMINE SCREEN,URINE NEGATIVE (NEGATIVE); BARBITURATE SCREEN,UR NEGATIVE (NEGATIVE); BENZODIAZEPINES SCREEN, URINE POSITIVE (NEGATIVE); BUPRENORPHINE SCREEN, URINE NEGATIVE (NEGATIVE); METHADONE SCREEN, URINE NEGATIVE (NEGATIVE); OPIATE SCREEN, URINE POSITIVE (NEGATIVE); OXYCODONE SCREEN, URINE NEGATIVE (NEGATIVE); TRICYCLIC ANTIDEPRESSANT,URINE NEGATIVE (NEGATIVE)
[2024-04-17 05:06] LABS: BASOPHILS % (AUTO) 0.4 %; EOSINOPHILS # (AUTO) 0.1 10^3/uL (0.0-0.7); EOSINOPHILS % (AUTO) 1.6 %; HCT - HEMATOCRIT 38.6 % (42.0-52.0); HGB - HEMOGLOBIN 12.1 g/dL (14.0-18.0); LYMPHOCYTES % (AUTO) 13.1 %; MEAN CORPUSCULAR HEMOGLOBIN 28.2 pg (27.0-31.0); MEAN CORPUSCULAR HGB CONC 31.3 g/dL (32.0-36.0); MEAN PLATELET VOLUME 9.6 fL (7.4-11.4); MONOCYTES # (AUTO) 0.5 10^3/uL (0.0-1.0); MONOCYTES % (AUTO) 6.2 %; NEUTROPHILS % (AUTO) 75.6 %; PLT - PLATELET COUNT 261 10^3/uL (130-450); RED BLOOD COUNT 4.29 10^6/uL (4.70-6.10); RED CELL DISTRIBUTION WIDTH 13.5 % (12.0-15.0)
[2024-04-17 05:23] LABS: CALCIUM 8.4 mg/dL (8.5-10.3); CREATININE 0.6 mg/dL (0.6-1.3); POTASSIUM 3.6 mmol/L (3.5-4.5)
[2024-04-17] MEDS: POTASSIUM CHLOR 10 MEQ/100 ML 10 MEQ/100 ML BAG IV SCH ×2 (06:04→16:17)
[2024-04-17] MEDS: MAGNESIUM SULFATE 2 GRAM 2 GM/50 ML BAG IV ONE (06:51)
--- NOTE | 2024-04-17 08:03 | PROVIDER PROGRESS NOTE ---
Subjective - Prog Note Date Prog Note Date: 04/17/24 - Subjective Pt reports feeling: No change (Still actively pulling against restraints on increasing doses of benzodiazepines) Objective - Vital Signs/Intake & Output Reviewed Vital Signs: Yes Vital Signs: Vital Signs Temp Pulse Resp BP Pulse Ox 04/17/24 07:39 36.6 C 61 21 121/67 99 04/17/24 07:00 65 17 96/53 L 96 04/17/24 06:00 36.5 C 65 23 106/63 99 04/17/24 05:00 47 L 26 H 98/64 98 Intake & Output: Intake & Output 04/14/24 04/15/24 04/16/24 04/17/24 23:59 23:59 23:59 23:59 Intake Total 1050 1720 2197.412 1598.045 Output Total 0 1100 Balance 1050 1720 2197.412 498.045 - Objective General Appearance: positive: Lethargic Respiratory: positive: Chest non-tender, No respiratory distress Cardiovascular: positive: Regular rate & rhythm, No murmur Abdomen: positive: Non-tender Skin: positive: Skin rash ( cellulitic rash on right side of face) Extremities: positive: Nml appearance, No pedal edema Neurologic/Psychiatric: positive: Other ( moves all extremities and neck freely. Acutely delirious and on increasing doses of benzodiazepines so noninteractive with interview) - Lab Results Fish Bones: 04/17/24 04:30 04/17/24 10:22 Other Labs: Lab Results x24hrs 04/17/24 04/17/24 04/17/24 Range/Units 04:30 04:30 04:30 WBC (4.8-10.8) x10^3/uL RBC (4.70-6.10) 10^6/uL Hgb (14.0-18.0) g/dL Hct (42.0-52.0) % MCV (80.0-94.0) fL MCH (27.0-31.0) pg MCHC (32.0-36.0) g/dL RDW (12.0-15.0) % Plt Count (130-450) 10^3/uL MPV (7.4-11.4) fL Neut # (Auto) (1.5-6.6) 10^3/uL Lymph # (Auto) (1.5-3.5) 10^3/uL [place] # (Auto) (0.0-1.0) 10^3/uL Eos # (Auto) (0.0-0.7) 10^3/uL Baso # (Auto) (0.0-0.1) 10^3/uL Absolute Nucleated RBC x10^3/uL Nucleated RBC % /100WBC Sodium 142 (135-145) mmol/L Potassium 3.6 (3.5-4.5) mmol/L Chloride 112 H (101-111) mmol/L Carbon Dioxide 24 (21-32) mmol/L Anion Gap 6.0 (6-13) BUN 12 (6-20) mg/dL Creatinine 0.6 (0.6-1.3) mg/dL Estimated GFR (MDRD) 145 (>89) Glucose 124 H (74-104) mg/dL Calcium 8.4 L (8.5-10.3) mg/dL Phosphorus 2.4 L (2.5-5.0) mg/dL Magnesium 1.6 L (1.7-2.3) mg/dL Urine Opiates Screen (NEGATIVE) Ur Buprenorphine Scrn (NEGATIVE) Ur Oxycodone Screen (NEGATIVE) Urine Methadone Screen (NEGATIVE) Ur Barbiturates Screen (NEGATIVE) Ur Tricyclics Screen (NEGATIVE) Ur Phencyclidine Scrn (NEGATIVE) Ur Amphetamine Screen (NEGATIVE) U Methamphetamines Scrn (NEGATIVE) U Benzodiazepines Scrn (NEGATIVE) Urine Cocaine Screen (NEGATIVE) U Cannabinoids Screen (NEGATIVE) Ur Drug Screen Comment 04/17/24 04/17/24 04/16/24 Range/Units 04:30 02:38 07:33 WBC 8.0 (4.8-10.8) x10^3/uL RBC 4.29 L (4.70-6.10) 10^6/uL Hgb 12.1 L (14.0-18.0) g/dL Hct 38.6 L (42.0-52.0) % MCV 90.0 (80.0-94.0) fL MCH 28.2 (27.0-31.0) pg MCHC 31.3 L (32.0-36.0) g/dL RDW 13.5 (12.0-15.0) % Plt Count 261 (130-450) 10^3/uL MPV 9.6 (7.4-11.4) fL Neut # (Auto) 6.0 (1.5-6.6) 10^3/uL Lymph # (Auto) 1.0 L (1.5-3.5) 10^3/uL [place] # (Auto) 0.5 (0.0-1.0) 10^3/uL Eos # (Auto) 0.1 (0.0-0.7) 10^3/uL Baso # (Auto) 0.0 (0.0-0.1) 10^3/uL Absolute Nucleated RBC 0.00 x10^3/uL Nucleated RBC % 0.0 /100WBC Sodium (135-145) mmol/L Potassium (3.5-4.5) mmol/L Chloride (101-111) mmol/L Carbon Dioxide (21-32) mmol/L Anion Gap (6-13) BUN (6-20) mg/dL Creatinine (0.6-1.3) mg/dL Estimated GFR (MDRD) (>89) Glucose (74-104) mg/dL Calcium (8.5-10.3) mg/dL Phosphorus 1.5 L (2.5-5.0) mg/dL Magnesium (1.7-2.3) mg/dL Urine Opiates Screen POSITIVE H (NEGATIVE) Ur Buprenorphine Scrn NEGATIVE (NEGATIVE) Ur Oxycodone Screen NEGATIVE (NEGATIVE) Urine Methadone Screen NEGATIVE (NEGATIVE) Ur Barbiturates Screen NEGATIVE (NEGATIVE) Ur Tricyclics Screen NEGATIVE (NEGATIVE) Ur Phencyclidine Scrn NEGATIVE (NEGATIVE) Ur Amphetamine Screen NEGATIVE (NEGATIVE) U Methamphetamines Scrn NEGATIVE (NEGATIVE) U Benzodiazepines Scrn POSITIVE H (NEGATIVE) Urine Cocaine Screen NEGATIVE (NEGATIVE) U Cannabinoids Screen NEGATIVE (NEGATIVE) Ur Drug Screen Comment CUTOFF CONC BELOW: Sepsis Event Note (H) - Evaluation Current Stage of Sepsis: Ruled out (did not meet SIRS criteria on admission) Assessment/Plan - Problem List (1) Alcohol withdrawal delirium, acute, hyperactive Impression: Known history of polysubstance abuse including alcohol, heroin Now on day 3 of withdrawal Receiving very high doses of benzodiazepines as well as Precedex drip Maintain in ICU Continue Precedex, exercising caution in setting of mild bradycardia Increasing dose of Valium from 10 mg 3 times daily to 20 mg 3 times daily Continue restraints Seizure precautions Low threshold to initiate phenobarbital loading (2) Facial cellulitis Impression: Following surgical cultures Unasyn Leukocytosis resolved ENT consulted by prior provider, [place] drain removed 04/15/2024 Per ENT no indication for follow-up CT Likely transition to p.o. antibiotics tomorrow (3) Hypokalemiaresolved Impression: (4) Dental infection Impression: antibiotics as above Pain management with scheduled Tylenol, As needed Dilaudid 1 mg Time spent in management of this critically ill patient in an ICU setting, including discussion of care with surgeon, adjusting benzodiazepine regimen, r estraints, multiple discussions with pharmacy and other ancillary providers was approximately 45 minutes
[2024-04-17] MEDS: diazePAM INJ 5 MG/ML SYRINGE IVP ONE (08:26)
--- NOTE | 2024-04-17 08:32 | PROVIDER PROGRESS NOTE ---
Subjective - General Admit Date: 04/16/24 Procedure Date: 04/14/24 Post Op Days: 3 Procedure Performed: I&D R temporal region - Review of Systems Wound/Incisions: positive: Other (No drainage. Swelling of the R face stable, maybe a little softer. No decrease in size. No spreading of the cellulitis below the angle of the mandible.) Drain Type: 1/4 inch mik Approximate mls Output: 5 General: negative: Fever, Weakness HEENT: positive: Other (No tooth pain. No throat swelling. Pain in the R temporal region associated with the drain.) Objective - Patient Data Vital Signs: Vital Signs x48h Temp Pulse Resp BP Pulse Ox 04/17/24 07:39 36.6 C 61 21 121/67 99 04/17/24 07:00 65 17 96/53 L 96 04/17/24 06:00 36.5 C 65 23 106/63 99 04/17/24 05:00 47 L 26 H 98/64 98 04/17/24 04:00 46 L 22 86/71 L 98 04/17/24 03:00 36.7 C 42 L 19 107/68 98 04/17/24 02:00 55 L 21 127/73 98 04/17/24 01:00 72 27 H 137/97 H 98 Weight: Weight 04/15/24 04/16/24 04/17/24 23:59 23:59 23:59 Weight (kg) 73.5 kg 73 kg Intake & Output: Intake and Output Totals x24h 04/15/24 04/16/24 04/17/24 23:59 23:59 23:59 Intake Total 1720 2197.412 1838.045 Output Total 0 1100 Balance 1720 2197.412 738.045 - Lab Results Lab Results: 04/17/24 04:30 04/17/24 04:30 Other Lab Results: Lab Results x24hrs 04/17/24 04/17/24 04/17/24 Range/Units 04:30 04:30 04:30 WBC (4.8-10.8) x10^3/uL RBC (4.70-6.10) 10^6/uL Hgb (14.0-18.0) g/dL Hct (42.0-52.0) % MCV (80.0-94.0) fL MCH (27.0-31.0) pg MCHC (32.0-36.0) g/dL RDW (12.0-15.0) % Plt Count (130-450) 10^3/uL MPV (7.4-11.4) fL Neut # (Auto) (1.5-6.6) 10^3/uL Lymph # (Auto) (1.5-3.5) 10^3/uL [place] # (Auto) (0.0-1.0) 10^3/uL Eos # (Auto) (0.0-0.7) 10^3/uL Baso # (Auto) (0.0-0.1) 10^3/uL Absolute Nucleated RBC x10^3/uL Nucleated RBC % /100WBC Sodium 142 (135-145) mmol/L Potassium 3.6 (3.5-4.5) mmol/L Chloride 112 H (101-111) mmol/L Carbon Dioxide 24 (21-32) mmol/L Anion Gap 6.0 (6-13) BUN 12 (6-20) mg/dL Creatinine 0.6 (0.6-1.3) mg/dL Estimated GFR (MDRD) 145 (>89) Glucose 124 H (74-104) mg/dL Calcium 8.4 L (8.5-10.3) mg/dL Phosphorus 2.4 L (2.5-5.0) mg/dL Magnesium 1.6 L (1.7-2.3) mg/dL Urine Opiates Screen (NEGATIVE) Ur Buprenorphine Scrn (NEGATIVE) Ur Oxycodone Screen (NEGATIVE) Urine Methadone Screen (NEGATIVE) Ur Barbiturates Screen (NEGATIVE) Ur Tricyclics Screen (NEGATIVE) Ur Phencyclidine Scrn (NEGATIVE) Ur Amphetamine Screen (NEGATIVE) U Methamphetamines Scrn (NEGATIVE) U Benzodiazepines Scrn (NEGATIVE) Urine Cocaine Screen (NEGATIVE) U Cannabinoids Screen (NEGATIVE) Ur Drug Screen Comment 04/17/24 04/17/24 Range/Units 04:30 02:38 WBC 8.0 (4.8-10.8) x10^3/uL RBC 4.29 L (4.70-6.10) 10^6/uL Hgb 12.1 L (14.0-18.0) g/dL Hct 38.6 L (42.0-52.0) % MCV 90.0 (80.0-94.0) fL MCH 28.2 (27.0-31.0) pg MCHC 31.3 L (32.0-36.0) g/dL RDW 13.5 (12.0-15.0) % Plt Count 261 (130-450) 10^3/uL MPV 9.6 (7.4-11.4) fL Neut # (Auto) 6.0 (1.5-6.6) 10^3/uL Lymph # (Auto) 1.0 L (1.5-3.5) 10^3/uL [place] # (Auto) 0.5 (0.0-1.0) 10^3/uL Eos # (Auto) 0.1 (0.0-0.7) 10^3/uL Baso # (Auto) 0.0 (0.0-0.1) 10^3/uL Absolute Nucleated RBC 0.00 x10^3/uL Nucleated RBC % 0.0 /100WBC Sodium (135-145) mmol/L Potassium (3.5-4.5) mmol/L Chloride (101-111) mmol/L Carbon Dioxide (21-32) mmol/L Anion Gap (6-13) BUN (6-20) mg/dL Creatinine (0.6-1.3) mg/dL Estimated GFR (MDRD) (>89) Glucose (74-104) mg/dL Calcium (8.5-10.3) mg/dL Phosphorus (2.5-5.0) mg/dL Magnesium (1.7-2.3) mg/dL Urine Opiates Screen POSITIVE H (NEGATIVE) Ur Buprenorphine Scrn NEGATIVE (NEGATIVE) Ur Oxycodone Screen NEGATIVE (NEGATIVE) Urine Methadone Screen NEGATIVE (NEGATIVE) Ur Barbiturates Screen NEGATIVE (NEGATIVE) Ur Tricyclics Screen NEGATIVE (NEGATIVE) Ur Phencyclidine Scrn NEGATIVE (NEGATIVE) Ur Amphetamine Screen NEGATIVE (NEGATIVE) U Methamphetamines Scrn NEGATIVE (NEGATIVE) U Benzodiazepines Scrn POSITIVE H (NEGATIVE) Urine Cocaine Screen NEGATIVE (NEGATIVE) U Cannabinoids Screen NEGATIVE (NEGATIVE) Ur Drug Screen Comment CUTOFF CONC BELOW: - Current Medications Current Medications: Current Medications Generic Name Dose Route Start Last Admin Trade Name Freq PRN Reason Stop Dose Admin Acetaminophen 1,000 mg 04/15/24 08:00 04/17/24 00:03 Acetaminophen 500 Mg Tablet PO Not Given Q8H BALTA Hydromorphone HCl 1 mg 04/16/24 10:06 04/17/24 07:32 Hydromorphone 1 Mg/Ml Carpuject IVP 1 mg Q2HR PRN Administration Severe Pain (Level 7-10) Ampicillin Sodium/Sulbactam 100 mls @ 200 mls/hr 04/15/24 00:00 04/17/24 06:46 Sodium 3 gm/ Sodium Chloride IV Infused Q6HR BALTA Infusion Dexmedetomidine/Sodium Chloride 100 mls @ 3.675 mls/hr 04/16/24 07:51 04/17/24 03:10 Precedex Premix IV 0.6 mcg/kg/hr .[id number] PRN 11.025 mls/hr Agitation Titration Protocol 0.2 MCG/KG/HR Ketorolac Tromethamine 15 mg 04/15/24 07:12 04/17/24 03:33 Ketorolac 15 Mg/Ml Vial IVP 04/20/24 07:11 15 mg Q6HR PRN Administration Severe Pain (Level 7-10) Lorazepam 1 mg 04/16/24 00:31 04/16/24 06:47 Lorazepam 2 Mg/Ml Vial IVP 1 mg Q30M PRN Administration CIWA >8 Protocol Lorazepam 2 - 20 mg 04/16/24 07:08 04/17/24 07:33 Lorazepam 2 Mg/Ml Vial IVP 6 mg Q15M PRN Administration RASS > 0 Protocol Oxycodone HCl 5 mg 04/15/24 07:13 04/15/24 23:53 Oxycodone 5 Mg Tablet PO 5 mg Q4HR PRN Administration Moderate Pain (Level 4-6) Polyethylene Glycol 17 gm 04/16/24 09:00 04/16/24 10:15 Polyethylene Glycol 3350 17 Gm Packet PO Not Given DAILY [facility] Multivit/Folic Acid/Iron 1 tab 04/16/24 08:00 04/16/24 10:16 Vitamin Tablet PO Not Given DAILYWM BALTA Sodium Chloride 10 ml 04/14/24 22:12 04/16/24 22:06 Sodium Chloride Flush 0.9% 10 Ml Syringe IVP 10 ml PRN PRN Administration NEEDED PER PROVIDER ORDERS Sodium Chloride 10 ml 04/15/24 01:00 04/17/24 00:03 Sodium Chloride Flush 0.9% 10 Ml Syringe IVP Not Given 0100,0900,1700 [facility] Sodium Phosphate 250 mg 04/15/24 17:00 04/16/24 17:48 Neutra-Phos 250 Mg Tablet PO Not Given TIDWM BALTA Thiamine HCl 100 mg 04/16/24 09:00 04/16/24 10:15 Thiamine 100 Mg Tablet PO Not Given DAILY BALTA - Physical Exam Wound/Incisions: positive: Other (Mild decrease in swelling size and induration today. No drainage. No spreading of the swelling inferiorly. R cervical lymphadenopathy.) Impression/Plan - Problem List Problem List: R facial/temporal cellulitis of unclear etiology Leukocytosis resolved. Mildly improved exam today Today during the exam he was able to answer yes or no to simple questions. He reports that there is no tooth pain. The teeth and vestibules were nontender and nonedematous. Plan: - continue IV abx - If he improves again tomorrow he will be okay for d/c from OMFS standpoint. - I will follow up with him in my clinic after d/c and if he needs teeth out they can be removed in an outpatient setting - No repeat CT max/face indicated. Mild improvement of exam, afebrile, downtrending WBC x 3 days. Uli Lepe DDS [phone]
[2024-04-17] MEDS: POTASSIUM PHOSPHATE 15 MMOL in SODIUM CHLORIDE 0.9% 250 ML IV ONE (08:40)
[2024-04-17] MEDS: THIAMINE INJ 400 MG in SODIUM CHLORIDE 0.9% 50 ML IV ONE (08:41)
[2024-04-17] MEDS: OLANZapine 10 MG VIAL IM SCH (10:32)
[2024-04-17 10:35] LABS: MAGNESIUM 1.9 mg/dL (1.7-2.3); POTASSIUM 3.4 mmol/L (3.5-4.5)
[2024-04-17] MEDS: oxyCODONE 5 MG TABLET PO PRN (11:50)
[2024-04-17] MEDS: MULTIVITAMIN 10 ML, THIAMINE INJ 100 MG, MAGNESIUM SULFATE 2 GM, FOLIC ACID INJ 1 MG in... IV SCH (11:56)
[2024-04-17] MEDS: HALOPERIDOL 5 MG/ML VIAL IM ONE (13:49)
[2024-04-17] MEDS: diazePAM INJ 5 MG/ML SYRINGE IVP SCH (13:57)
[2024-04-17] MEDS: DEXMEDETOMIDINE 1,000 MCG in SODIUM CHLORIDE 0.9% 240 ML IV PRN (17:41)
--- NOTE | 2024-04-17 18:05 | PROVIDER PROGRESS NOTE ---
Restraint [place] - Immediate Situation Face to Face Evaluation Date: 04/17/24 Face to Face Evaluation Time: 18:04 Restraint Classification: Non-violent (Soft Restraint ONLY) - Patient's Reaction & Behaviors Safety: Physically safe Harm: Potential harm to self Other: Resting quietly - Behavioral Condition Attitude: Other ( asleep) Behavior: Cooperative, Withdrawn Orientation: Person Mood: Labile Behavioral Condition Comments: currently resting on high doses of benzodiazepines and opiates - Evaluation Current Medical Condition Relating to Need for Restraint: polysubstance abuse with withdrawal Pertinent History/Illicit Drugs/Medications/Results: Polysubstance abuse call, heroin, amphetamines
[2024-04-18] MEDS: POTASSIUM CHLOR 10 MEQ/100 ML 10 MEQ/100 ML BAG IV SCH (00:43)
[2024-04-18 05:17] LABS: BASOPHILS % (AUTO) 0.4 %; EOSINOPHILS # (AUTO) 0.1 10^3/uL (0.0-0.7); EOSINOPHILS % (AUTO) 2.3 %; HCT - HEMATOCRIT 37.9 % (42.0-52.0); HGB - HEMOGLOBIN 12.7 g/dL (14.0-18.0); LYMPHOCYTES # (AUTO) 1.1 10^3/uL (1.5-3.5); LYMPHOCYTES % (AUTO) 21.1 %; MEAN CORPUSCULAR HGB CONC 33.5 g/dL (32.0-36.0); MEAN CORPUSCULAR VOLUME 89.4 fL (80.0-94.0); MEAN PLATELET VOLUME 9.2 fL (7.4-11.4); MONOCYTES # (AUTO) 0.5 10^3/uL (0.0-1.0); MONOCYTES % (AUTO) 8.9 %; NEUTROPHILS # (AUTO) 3.4 10^3/uL (1.5-6.6); NEUTROPHILS % (AUTO) 63.1 %; PLT - PLATELET COUNT 279 10^3/uL (130-450); RED BLOOD COUNT 4.24 10^6/uL (4.70-6.10); RED CELL DISTRIBUTION WIDTH 13.9 % (12.0-15.0); WHITE BLOOD COUNT 5.3 x10^3/uL (4.8-10.8)
[2024-04-18 05:25] LABS: CALCIUM, IONIZED 1.14 mmol/L (1.15-1.33); VBG PH 7.434 (7.31-7.41)
[2024-04-18 05:37] LABS: CALCIUM 8.2 mg/dL (8.5-10.3); CREATININE 0.6 mg/dL (0.6-1.3); PHOSPHORUS 3.8 mg/dL (2.5-5.0); POTASSIUM 3.9 mmol/L (3.5-4.5)
--- NOTE | 2024-04-18 09:06 | PROVIDER PROGRESS NOTE ---
Subjective - Prog Note Date Prog Note Date: 04/18/24 - Subjective Subjective: Patient sleeping soundly at time of my interview on high doses of benzodiazepines as well as Precedex drip. Still in restraints, intermittently moving all extremities Objective - Vital Signs/Intake & Output Reviewed Vital Signs: Yes Vital Signs: Vital Signs Temp Pulse Resp BP Pulse Ox 04/18/24 08:44 36.9 C 60 25 H 138/71 H 98 04/18/24 07:36 58 L 21 137/72 H 98 04/18/24 07:00 55 L 22 143/71 H 98 04/18/24 06:00 59 L 23 144/69 H 97 Intake & Output: Intake & Output 04/15/24 04/16/24 04/17/24 04/18/24 23:59 23:59 23:59 23:59 Intake Total 1720 2197.412 3320.212 1494.764 Output Total 0 1100 900 Balance 1720 2197.412 2220.212 594.764 - Objective General Appearance: positive: No acute distress ENT: positive: Other ( swelling on right side of face improved, redness has resolved) Respiratory: positive: Chest non-tender, No respiratory distress Cardiovascular: positive: No murmur, Bradycardia Abdomen: positive: Non-tender Skin: positive: Other ( redness has resolved on right side of face, still with swelling) Extremities: positive: Non-tender Neurologic/Psychiatric: positive: Other ( resting, sometimes peacefully sometimes fitfully on high doses of benzodiazepines and Precedex) - Lab Results Fish Bones: 04/18/24 04:47 04/18/24 04:47 Other Labs: Lab Results x24hrs 04/18/24 04/18/24 04/18/24 Range/Units 04:47 04:47 04:47 WBC (4.8-10.8) x10^3/uL RBC (4.70-6.10) 10^6/uL Hgb (14.0-18.0) g/dL Hct (42.0-52.0) % MCV (80.0-94.0) fL MCH (27.0-31.0) pg MCHC (32.0-36.0) g/dL RDW (12.0-15.0) % Plt Count (130-450) 10^3/uL MPV (7.4-11.4) fL Neut # (Auto) (1.5-6.6) 10^3/uL Lymph # (Auto) (1.5-3.5) 10^3/uL [place] # (Auto) (0.0-1.0) 10^3/uL Eos # (Auto) (0.0-0.7) 10^3/uL Baso # (Auto) (0.0-0.1) 10^3/uL Absolute Nucleated RBC x10^3/uL Nucleated RBC % /100WBC VBG pH 7.434 H (7.31-7.41) Ionized Calcium 1.14 L (1.15-1.33) mmol/L Sodium 140 (135-145) mmol/L Potassium 3.9 (3.5-4.5) mmol/L Chloride 112 H (101-111) mmol/L Carbon Dioxide 23 (21-32) mmol/L Anion Gap 5.0 L (6-13) BUN 11 (6-20) mg/dL Creatinine 0.6 (0.6-1.3) mg/dL Estimated GFR (MDRD) 145 (>89) Glucose 107 H (74-104) mg/dL Calcium 8.2 L (8.5-10.3) mg/dL Phosphorus 3.8 (2.5-5.0) mg/dL Magnesium 2.0 (1.7-2.3) mg/dL 04/18/24 04/17/24 04/17/24 Range/Units 04:47 21:28 15:48 WBC 5.3 (4.8-10.8) x10^3/uL RBC 4.24 L (4.70-6.10) 10^6/uL Hgb 12.7 L (14.0-18.0) g/dL Hct 37.9 L (42.0-52.0) % MCV 89.4 (80.0-94.0) fL MCH 30.0 (27.0-31.0) pg MCHC 33.5 (32.0-36.0) g/dL RDW 13.9 (12.0-15.0) % Plt Count 279 (130-450) 10^3/uL MPV 9.2 (7.4-11.4) fL Neut # (Auto) 3.4 (1.5-6.6) 10^3/uL Lymph # (Auto) 1.1 L (1.5-3.5) 10^3/uL [place] # (Auto) 0.5 (0.0-1.0) 10^3/uL Eos # (Auto) 0.1 (0.0-0.7) 10^3/uL Baso # (Auto) 0.0 (0.0-0.1) 10^3/uL Absolute Nucleated RBC 0.00 x10^3/uL Nucleated RBC % 0.0 /100WBC VBG pH (7.31-7.41) Ionized Calcium (1.15-1.33) mmol/L Sodium (135-145) mmol/L Potassium 3.8 (3.5-4.5) mmol/L Chloride (101-111) mmol/L Carbon Dioxide (21-32) mmol/L Anion Gap (6-13) BUN (6-20) mg/dL Creatinine (0.6-1.3) mg/dL Estimated GFR (MDRD) (>89) Glucose (74-104) mg/dL Calcium (8.5-10.3) mg/dL Phosphorus 4.4 (2.5-5.0) mg/dL Magnesium (1.7-2.3) mg/dL 04/17/24 Range/Units 10:22 WBC (4.8-10.8) x10^3/uL RBC (4.70-6.10) 10^6/uL Hgb (14.0-18.0) g/dL Hct (42.0-52.0) % MCV (80.0-94.0) fL MCH (27.0-31.0) pg MCHC (32.0-36.0) g/dL RDW (12.0-15.0) % Plt Count (130-450) 10^3/uL MPV (7.4-11.4) fL Neut # (Auto) (1.5-6.6) 10^3/uL Lymph # (Auto) (1.5-3.5) 10^3/uL [place] # (Auto) (0.0-1.0) 10^3/uL Eos # (Auto) (0.0-0.7) 10^3/uL Baso # (Auto) (0.0-0.1) 10^3/uL Absolute Nucleated RBC x10^3/uL Nucleated RBC % /100WBC VBG pH (7.31-7.41) Ionized Calcium (1.15-1.33) mmol/L Sodium (135-145) mmol/L Potassium 3.4 L (3.5-4.5) mmol/L Chloride (101-111) mmol/L Carbon Dioxide (21-32) mmol/L Anion Gap (6-13) BUN (6-20) mg/dL Creatinine (0.6-1.3) mg/dL Estimated GFR (MDRD) (>89) Glucose (74-104) mg/dL Calcium (8.5-10.3) mg/dL Phosphorus (2.5-5.0) mg/dL Magnesium 1.9 (1.7-2.3) mg/dL Sepsis Event Note (H) - Evaluation Current Stage of Sepsis: Ruled out (did not meet SIRS criteria on admission) Assessment/Plan - Problem List (1) Alcohol withdrawal delirium, acute, hyperactive Impression: Known history of polysubstance abuse including alcohol, heroin Now on day 4 of withdrawal 04/16/2024 he received 90 mg as needed Ativan over 24-hour. 04/17/2024 he received only 54 mg as needed Ativan over 24 hours. Wean Precedex drip as tolerated Change from scheduled Valium to scheduled Librium 25 mg every 6 if he can tolerate p.o. Maintain in ICU, likely out of ICU tomorrow Continue restraints until delirium better resolved (2) Facial cellulitis Impression: Following surgical cultures, which are send out lab Unasyn, changed to Augmentin as soon as he can tolerate p.o. Leukocytosis resolved ENT consulted by prior provider, [place] drain removed 04/15/2024 Per ENT no indication for follow-up CT (3) Hypokalemiaresolved Impression: (4) Dental infection Impression: antibiotics as above Pain management with scheduled Tylenol, As needed Dilaudid
[2024-04-18] MEDS: LACTATED RINGERS 1,000 ML IV SCH (09:09)
[2024-04-18] MEDS: OLANZapine ODT 5 MG TABLET TL SCH (09:20)
--- NOTE | 2024-04-18 10:54 | PROVIDER PROGRESS NOTE ---
Subjective - General Admit Date: 04/16/24 Procedure Date: 04/14/24 Post Op Days: 4 Procedure Performed: I&D R temporal region - Review of Systems Wound/Incisions: positive: Other (Mild decrease in swelling size and induration today. No drainage. No spreading of the swelling inferiorly. R cervical lymphadenopathy.) Drain Type: 1/4 inch mik Approximate mls Output: 5 General: negative: Fever, Weakness HEENT: positive: Other (No tooth pain. No throat swelling. Pain in the R temporal region associated with the drain.) Objective - Patient Data Vital Signs: Vital Signs x48h Temp Pulse Resp BP Pulse Ox 04/18/24 10:47 57 L 19 134/67 H 97 04/18/24 09:49 60 21 120/75 96 04/18/24 08:44 36.9 C 60 25 H 138/71 H 98 04/18/24 07:36 58 L 21 137/72 H 98 04/18/24 07:00 55 L 22 143/71 H 98 04/18/24 06:00 59 L 23 144/69 H 97 04/18/24 05:00 57 L 23 141/71 H 98 04/18/24 04:00 61 28 H 132/69 H 98 04/18/24 03:00 61 25 H 128/70 98 Weight: Weight 04/16/24 04/17/24 04/18/24 23:59 23:59 23:59 Weight (kg) 73 kg 73.5 kg Intake & Output: Intake and Output Totals x24h 04/16/24 04/17/24 04/18/24 23:59 23:59 23:59 Intake Total 2197.412 3320.212 1803.119 Output Total 0 1100 900 Balance 2197.412 2220.212 903.119 - Lab Results Lab Results: 04/18/24 04:47 04/18/24 04:47 Other Lab Results: Lab Results x24hrs 04/18/24 04/18/24 04/18/24 Range/Units 04:47 04:47 04:47 WBC (4.8-10.8) x10^3/uL RBC (4.70-6.10) 10^6/uL Hgb (14.0-18.0) g/dL Hct (42.0-52.0) % MCV (80.0-94.0) fL MCH (27.0-31.0) pg MCHC (32.0-36.0) g/dL RDW (12.0-15.0) % Plt Count (130-450) 10^3/uL MPV (7.4-11.4) fL Neut # (Auto) (1.5-6.6) 10^3/uL Lymph # (Auto) (1.5-3.5) 10^3/uL Long # (Auto) (0.0-1.0) 10^3/uL Eos # (Auto) (0.0-0.7) 10^3/uL Baso # (Auto) (0.0-0.1) 10^3/uL Absolute Nucleated RBC x10^3/uL Nucleated RBC % /100WBC VBG pH 7.434 H (7.31-7.41) Ionized Calcium 1.14 L (1.15-1.33) mmol/L Sodium 140 (135-145) mmol/L Potassium 3.9 (3.5-4.5) mmol/L Chloride 112 H (101-111) mmol/L Carbon Dioxide 23 (21-32) mmol/L Anion Gap 5.0 L (6-13) BUN 11 (6-20) mg/dL Creatinine 0.6 (0.6-1.3) mg/dL Estimated GFR (MDRD) 145 (>89) Glucose 107 H (74-104) mg/dL Calcium 8.2 L (8.5-10.3) mg/dL Phosphorus 3.8 (2.5-5.0) mg/dL Magnesium 2.0 (1.7-2.3) mg/dL 04/18/24 04/17/24 04/17/24 Range/Units 04:47 21:28 15:48 WBC 5.3 (4.8-10.8) x10^3/uL RBC 4.24 L (4.70-6.10) 10^6/uL Hgb 12.7 L (14.0-18.0) g/dL Hct 37.9 L (42.0-52.0) % MCV 89.4 (80.0-94.0) fL MCH 30.0 (27.0-31.0) pg MCHC 33.5 (32.0-36.0) g/dL RDW 13.9 (12.0-15.0) % Plt Count 279 (130-450) 10^3/uL MPV 9.2 (7.4-11.4) fL Neut # (Auto) 3.4 (1.5-6.6) 10^3/uL Lymph # (Auto) 1.1 L (1.5-3.5) 10^3/uL Long # (Auto) 0.5 (0.0-1.0) 10^3/uL Eos # (Auto) 0.1 (0.0-0.7) 10^3/uL Baso # (Auto) 0.0 (0.0-0.1) 10^3/uL Absolute Nucleated RBC 0.00 x10^3/uL Nucleated RBC % 0.0 /100WBC VBG pH (7.31-7.41) Ionized Calcium (1.15-1.33) mmol/L Sodium (135-145) mmol/L Potassium 3.8 (3.5-4.5) mmol/L Chloride (101-111) mmol/L Carbon Dioxide (21-32) mmol/L Anion Gap (6-13) BUN (6-20) mg/dL Creatinine (0.6-1.3) mg/dL Estimated GFR (MDRD) (>89) Glucose (74-104) mg/dL Calcium (8.5-10.3) mg/dL Phosphorus 4.4 (2.5-5.0) mg/dL Magnesium (1.7-2.3) mg/dL - Current Medications Current Medications: Current Medications Generic Name Dose Route Start Last Admin Trade Name Freq PRN Reason Stop Dose Admin Acetaminophen 1,000 mg 04/15/24 08:00 04/18/24 09:08 Acetaminophen 500 Mg Tablet PO Not Given Q8H BALTA Hydromorphone HCl 1 mg 04/16/24 10:06 04/18/24 10:06 Hydromorphone 1 Mg/Ml Carpuject IVP 1 mg Q2HR PRN Administration Severe Pain (Level 7-10) Ampicillin Sodium/Sulbactam 100 mls @ 200 mls/hr 04/15/24 00:00 04/18/24 07:01 Sodium 3 gm/ Sodium Chloride IV Infused Q6HR BALTA Infusion Multivitamins 10 ml/ Thiamine 1,015.2 mls @ 100 mls/hr 04/17/24 12:00 04/18/24 00:27 HCl 100 mg/ Magnesium Sulfate IV Infused 2 gm/ Folic Acid 1 mg/ Sodium DAILY@1200 BALTA Infusion Chloride Dexmedetomidine HCl 1,000 mcg/ 250 mls @ 16.538 mls/hr 04/17/24 16:00 04/18/24 09:44 Sodium Chloride IV 0.4 mcg/kg/hr .Q15H7M PRN 7.35 mls/hr Agitation Titration Protocol 0.9 MCG/KG/HR Lactated Ringer's 1,000 mls @ 125 mls/hr 04/18/24 09:00 04/18/24 09:09 Lr IV 125 mls/hr .Q8H BALTA Administration Ketorolac Tromethamine 15 mg 04/15/24 07:12 04/17/24 03:33 Ketorolac 15 Mg/Ml Vial IVP 04/20/24 07:11 15 mg Q6HR PRN Administration Severe Pain (Level 7-10) Lorazepam 1 mg 04/16/24 00:31 04/16/24 06:47 Lorazepam 2 Mg/Ml Vial IVP 1 mg Q30M PRN Administration CIWA >8 Protocol Lorazepam 2 - 20 mg 04/16/24 07:08 04/18/24 10:07 Lorazepam 2 Mg/Ml Vial IVP 2 mg Q15M PRN Administration RASS > 0 Protocol Olanzapine 10 mg 04/18/24 09:00 04/18/24 10:14 Olanzapine Odt 5 Mg Tablet TL Not Given DAILY BALTA Oxycodone HCl 5 mg 04/15/24 07:13 04/15/24 23:53 Oxycodone 5 Mg Tablet PO 5 mg Q4HR PRN Administration Moderate Pain (Level 4-6) Oxycodone HCl 10 mg 04/16/24 00:27 04/17/24 11:50 Oxycodone 5 Mg Tablet PO 10 mg Q6HR PRN Administration PAIN >8 Polyethylene Glycol 17 gm 04/16/24 09:00 04/18/24 09:10 Polyethylene Glycol 3350 17 Gm Packet PO 17 gm DAILY BALTA Administration Multivit/Folic Acid/Iron 1 tab 04/16/24 08:00 04/18/24 09:08 Vitamin Tablet PO Not Given DAILYWM BALTA Sodium Chloride 10 ml 04/14/24 22:12 04/17/24 20:13 Sodium Chloride Flush 0.9% 10 Ml Syringe IVP 10 ml PRN PRN Administration NEEDED PER PROVIDER ORDERS Sodium Chloride 10 ml 04/15/24 01:00 04/18/24 09:09 Sodium Chloride Flush 0.9% 10 Ml Syringe IVP 10 ml 0100,0900,1700 BALTA Administration Sodium Phosphate 250 mg 04/15/24 17:00 04/18/24 09:08 Neutra-Phos 250 Mg Tablet PO Not Given TIDWM BALTA Sterile Water 2.1 ml 04/17/24 11:00 04/18/24 09:30 Water For Injection,Sterile 10 Ml Vial MC 2.1 ml DAILY BALTA Administration Thiamine HCl 100 mg 04/16/24 09:00 04/18/24 09:09 Thiamine 100 Mg Tablet PO Not Given DAILY BALTA - Physical Exam Wound/Incisions: positive: Other ( no drainage.) Eyes Bilateral: positive: Other ( Right periorbital edema decreasing.) ENT: positive: Other ( Mouth opening normal. Floor of mouth soft nontender, nonelevated. Tongue nonelevated. Uvula midline. Teeth and vestibules nontender.) Neck: positive: Other ( Swelling slightly decreased from yesterday.) Impression/Plan - Problem List Problem List: 44-year-old male status post I&D of right temporal region, following a normal postoperative course. White blood cell count continues to drift downward. Clinical appearance gradually improving Plan: Okay for discharge from rn physician office standpoint. Recommend Augmentin x 7 more days after discharge. OMFS will sign off. Please reconsult if his condition worsens. Follow-up in my office after discharge. Thank you for including me in the care of this patient. Please reach out with any questions. Uli Lepe, AFIA [phone]
[2024-04-18] MEDS: chlordiazePOXIDE 25 MG CAPSULE PO SCH (12:09)
[2024-04-18] MEDS: OLANZapine 10 MG VIAL IM ONE (13:15)
[2024-04-18] MEDS: cloNIDine 0.1 MG TABLET PO SCH (17:14)
[2024-04-18] MEDS: hydrOXYzine PAMOATE 25 MG CAPSULE PO SCH (20:40)
[2024-04-19 05:45] LABS: BASOPHILS % (AUTO) 0.5 %; CALCIUM, IONIZED 1.15 mmol/L (1.15-1.33); EOSINOPHILS # (AUTO) 0.1 10^3/uL (0.0-0.7); EOSINOPHILS % (AUTO) 3.4 %; HCT - HEMATOCRIT 36.6 % (42.0-52.0); HGB - HEMOGLOBIN 11.8 g/dL (14.0-18.0); LYMPHOCYTES # (AUTO) 1.1 10^3/uL (1.5-3.5); LYMPHOCYTES % (AUTO) 26.7 %; MEAN CORPUSCULAR HEMOGLOBIN 29.2 pg (27.0-31.0); MEAN CORPUSCULAR HGB CONC 32.2 g/dL (32.0-36.0); MEAN CORPUSCULAR VOLUME 90.6 fL (80.0-94.0); MONOCYTES # (AUTO) 0.4 10^3/uL (0.0-1.0); MONOCYTES % (AUTO) 8.7 %; NEUTROPHILS # (AUTO) 2.4 10^3/uL (1.5-6.6); NEUTROPHILS % (AUTO) 57.1 %; PLT - PLATELET COUNT 256 10^3/uL (130-450); RED BLOOD COUNT 4.04 10^6/uL (4.70-6.10); RED CELL DISTRIBUTION WIDTH 13.6 % (12.0-15.0); VBG PH 7.453 (7.31-7.41); WHITE BLOOD COUNT 4.2 x10^3/uL (4.8-10.8)
[2024-04-19 05:54] LABS: MAGNESIUM 1.9 mg/dL (1.7-2.3)
[2024-04-19 06:00] LABS: PHOSPHORUS 3.4 mg/dL (2.5-5.0)
[2024-04-19 06:03] LABS: CALCIUM 8.2 mg/dL (8.5-10.3); CREATININE 0.6 mg/dL (0.6-1.3); POTASSIUM 3.8 mmol/L (3.5-4.5)
--- NOTE | 2024-04-19 07:24 | PROVIDER PROGRESS NOTE ---
Restraint [id number] - Immediate Situation Face to Face Evaluation Date: 04/18/24 Face to Face Evaluation Time: 18:00 Restraint Classification: Non-violent (Soft Restraint ONLY) - Patient's Reaction & Behaviors Safety: Physically safe Verbal: Crying/Tearful Harm: Potential harm to others Physical: Aggressive behavior, Fighting restraints Other: Resting quietly - Behavioral Condition Attitude: Guarded Behavior: Uncooperative Orientation: Person, Place Mood: Depressed - Evaluation Pertinent History/Illicit Drugs/Medications/Results: Polysubstance abuse call, heroin, amphetamines
--- NOTE | 2024-04-19 10:22 | PHARMACY PROGRESS NOTE ---
- Best Possible Medication History Admit Date and Time: 04/16/24 1008 Processed by: Pharmacy Patient Interview: Pt unable to participate Secondary Source(s): Physician records, Pharmacy records, Insurance records As the person ultimately responsible for medication therapy, providers are able to order a medication from an existing home medication list in [facility] via the "Reconcile Routine" prior to Confirmation of that medication by client technical support associate. Such practice is discouraged except when the physician, in their clinical judgment, deems that a medical need exists for a medication without regard to previous use.
[2024-04-19] MEDS: HALOPERIDOL 5 MG/ML VIAL IVP STA (10:25)
[2024-04-19] MEDS: LORazepam 2 MG/ML VIAL IVP STA (12:10)
[2024-04-19] MEDS: SACCHAROMYCES BOULARDII 250 MG CAPSULE PO SCH (16:18)
[2024-04-19] MEDS: BUPRENORPHINE/NALOXONE 8-2 MG TAB SL SCH (16:18)
--- NOTE | 2024-04-19 17:46 | PROVIDER PROGRESS NOTE ---
Restraint [id number] - Immediate Situation Face to Face Evaluation Date: 04/19/24 Face to Face Evaluation Time: 17:43 Restraint Classification: Violent, Physical - Locked Restraint - Patient's Reaction & Behaviors Safety: Physically unsafe, Non-compliant, Unable to Follow Commands Verbal: Screaming/Yelling, Swearing Harm: Actual harm to self, Potential harm to others Physical: Aggressive behavior, Fighting restraints, Punching, Kicking Other: Disruption of therapy, Attempting removal of medically necessary device(s) - Behavioral Condition Attitude: Other ( yelling) Behavior: Uncooperative, Belligerent, Agitated Orientation: Person Mood: Angry - Evaluation Current Medical Condition Relating to Need for Restraint: baseline personality disorder since age 15. Complicated by substance abuse that includes alcohol, fentanyl, methamphetamine. Complicated by history of PTSD after 7 years in jail. Has probably completed fentanyl and alcohol withdrawal in the last 3 to 4 days but still confused, angry, and large doses of Ativan needed to control him. Has resulted in disinhibition and worse anger. Pertinent History/Illicit Drugs/Medications/Results: Polysubstance abuse call, heroin, amphetamines - Plan Need to Initiate/Renew Violent or Chemical Restraint: Patient has been in 2 point restraints most of the day. This afternoon is increasingly physically agitated. Pulling at upper extremity restraints. Yelling at his mom. Yelling at his . Using his legs now to kick at nurse.
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
[2024-04-19] MEDS: AMOX/CLAV 875 MG/125 MG TABLET PO SCH (21:41)
[2024-04-20 05:39] LABS: BASOPHILS % (AUTO) 0.2 %; EOSINOPHILS # (AUTO) 0.1 10^3/uL (0.0-0.7); EOSINOPHILS % (AUTO) 2.4 %; HCT - HEMATOCRIT 35.6 % (42.0-52.0); HGB - HEMOGLOBIN 11.4 g/dL (14.0-18.0); LYMPHOCYTES # (AUTO) 1.8 10^3/uL (1.5-3.5); LYMPHOCYTES % (AUTO) 30.8 %; MEAN CORPUSCULAR HEMOGLOBIN 28.9 pg (27.0-31.0); MEAN CORPUSCULAR VOLUME 90.4 fL (80.0-94.0); MEAN PLATELET VOLUME 8.9 fL (7.4-11.4); MONOCYTES # (AUTO) 0.6 10^3/uL (0.0-1.0); MONOCYTES % (AUTO) 9.4 %; NEUTROPHILS # (AUTO) 3.3 10^3/uL (1.5-6.6); PLT - PLATELET COUNT 300 10^3/uL (130-450); RED BLOOD COUNT 3.94 10^6/uL (4.70-6.10); RED CELL DISTRIBUTION WIDTH 13.6 % (12.0-15.0); WHITE BLOOD COUNT 5.9 x10^3/uL (4.8-10.8)
[2024-04-20 05:55] LABS: CALCIUM 8.1 mg/dL (8.5-10.3); CREATININE 0.6 mg/dL (0.6-1.3); POTASSIUM 3.3 mmol/L (3.5-4.5)
[2024-04-20 06:33] LABS: MAGNESIUM 1.6 mg/dL (1.7-2.3); PHOSPHORUS 3.5 mg/dL (2.5-5.0)
[2024-04-20] MEDS: MAGNESIUM OXIDE 400 MG TABLET PO ONE (06:52)
[2024-04-20] MEDS: POTASSIUM CHLORIDE 20 MEQ TABLET PO SCH (08:33)
--- NOTE | 2024-04-20 08:45 | PROVIDER PROGRESS NOTE ---
Subjective - Prog Note Date Prog Note Date: 04/20/24 Prog Note Time: 08:37 - Subjective Pt reports feeling: No change Subjective: Mr. Solano is a 44 year old male who is on day 6 of ICU admission and unavoidable day 2. In the morning patient had outburts of yelling and screaming followed by a wave of quietness. At around 10am patient is following commands and listening to nurse's prompts. As he was working with the nurses to sit up and down, patient states "whoop" to prompt to us to say "there it is". While working with the nurses he was on soft restraints from being in leather restraints in upper restraints this morning. Everyone was in the room cheering him on. Patient states "I am so weak". Current Medications - Current Medications Current Medications: Medications Oxycodone HCl (Oxycodone 5 Mg Tablet) 10 mg PO Q6HR PRN PRN Reason: PAIN >8 Last Admin: 04/18/24 13:16 Dose: 10 mg Acetaminophen (Acetaminophen 325 Mg Tablet) 650 mg PO Q4HR PRN PRN Reason: Pain 1 to 4, or Fever Acetaminophen (Acetaminophen 500 Mg Tablet) 1,000 mg PO Q8H [facility] Last Admin: 04/20/24 08:31 Dose: 1,000 mg Amoxicillin/Clavulanate Potassium (Amox/Clav 875 Mg/125 Mg Tablet) 1 tab PO BID [facility] Last Admin: 04/20/24 08:29 Dose: 1 tab Buprenorphine HCl (Buprenorphine/Naloxone 8-2 Mg Tab) 1 tab SL BID [facility] Last Admin: 04/20/24 08:29 Dose: 1 tab Chlordiazepoxide HCl (Chlordiazepoxide 25 Mg Capsule) 25 mg PO Q6HR [facility] Last Admin: 04/20/24 06:01 Dose: 25 mg Clonidine HCl (Clonidine 0.1 Mg Tablet) 0.2 mg PO Q6H [facility] Last Admin: 04/20/24 06:01 Dose: 0.2 mg Hydromorphone HCl (Hydromorphone 1 Mg/Ml Carpuject) 1 mg IVP Q2HR PRN PRN Reason: Severe Pain (Level 7-10) Last Admin: 04/19/24 12:35 Dose: 1 mg Hydroxyzine Pamoate (Hydroxyzine Pamoate 25 Mg Capsule) 25 mg PO QPM [facility] Last Admin: 04/19/24 21:41 Dose: 25 mg Naloxone HCl (Naloxone 0.4 Mg/Ml Vial) 0.4 mg IVP ONCE PRN PRN Reason: Respiratory depression Stop: 04/20/24 16:25 Ondansetron HCl (Ondansetron 4 Mg/2 Ml Vial) 4 mg IVP Q6HR PRN PRN Reason: Nausea / Vomiting Oxycodone HCl (Oxycodone 5 Mg Tablet) 5 mg PO Q4HR PRN PRN Reason: Moderate Pain (Level 4-6) Last Admin: 04/15/24 23:53 Dose: 5 mg Polyethylene Glycol (Polyethylene Glycol 3350 17 Gm Packet) 17 gm PO DAILY [facility] Last Admin: 04/20/24 08:32 Dose: 17 gm Potassium Chloride (Potassium Chloride 20 Meq Tablet) 20 meq PO Q2H [facility]; Protocol Stop: 04/20/24 10:01 Last Admin: 04/20/24 08:33 Dose: 20 meq Multivit/Folic Acid/Iron ( Vitamin Tablet) 1 tab PO DAILYWM [facility] Last Admin: 04/20/24 08:29 Dose: 1 tab Saccharomyces Boulardii (Saccharomyces Boulardii 250 Mg Capsule) 250 mg PO BIDWM [facility] Last Admin: 04/20/24 08:29 Dose: 250 mg Sodium Phosphate (Neutra-Phos 250 Mg Tablet) 250 mg PO TIDWM [facility] Last Admin: 04/20/24 08:29 Dose: 250 mg Thiamine HCl (Thiamine 100 Mg Tablet) 100 mg PO DAILY [facility] Last Admin: 04/20/24 08:30 Dose: 100 mg Objective - Vital Signs/Intake & Output Reviewed Vital Signs: Yes Vital Signs: Vital Signs x48h Temp Pulse Resp BP Pulse Ox 04/20/24 08:00 36.4 C L 71 18 109/56 L 100 04/20/24 07:00 73 17 141/86 H 100 04/20/24 06:00 36.4 C L 66 19 133/67 H 99 04/20/24 05:00 103/56 L 99 04/20/24 04:00 73 12 97/58 L 100 04/20/24 03:02 67 19 113/54 L 100 04/20/24 02:00 57 L 19 116/51 L 97 04/20/24 01:00 65 16 113/62 98 Intake & Output: Intake & Output 04/17/24 04/18/24 04/19/24 04/20/24 23:59 23:59 23:59 23:59 Intake Total 3320.212 2729.930 3380.323 850 Output Total 1100 1400 3075 600 Balance 2220.212 1329.930 305.323 250 - Objective Eyes Bilateral: positive: Other (Right face is still swollen from resolving cellulitis. His right eyelid is still swollen shit. No redness or heat) Neck: positive: Thyroid nml, No JVD Respiratory: positive: Breath sounds nml Cardiovascular: positive: Regular rate & rhythm, No murmur, No gallop Abdomen: positive: Non-tender, Nml bowel sounds, No distention Back: positive: Nml inspection Skin: positive: Color nml, No rash, Warm, Dry Neurologic/Psychiatric: positive: Oriented x3, CN's nml (2-12), Mood/affect nml - Lab Results Fish Bones: 04/20/24 05:15 04/20/24 05:15 Other Labs: Lab Results x24hrs 04/20/24 04/20/24 04/20/24 Range/Units 05:25 05:15 05:15 WBC 5.9 (4.8-10.8) x10^3/uL RBC 3.94 L (4.70-6.10) 10^6/uL Hgb 11.4 L (14.0-18.0) g/dL Hct 35.6 L (42.0-52.0) % MCV 90.4 (80.0-94.0) fL MCH 28.9 (27.0-31.0) pg MCHC 32.0 (32.0-36.0) g/dL RDW 13.6 (12.0-15.0) % Plt Count 300 (130-450) 10^3/uL MPV 8.9 (7.4-11.4) fL Neut # (Auto) 3.3 (1.5-6.6) 10^3/uL Lymph # (Auto) 1.8 (1.5-3.5) 10^3/uL Sullivan # (Auto) 0.6 (0.0-1.0) 10^3/uL Eos # (Auto) 0.1 (0.0-0.7) 10^3/uL Baso # (Auto) 0.0 (0.0-0.1) 10^3/uL Absolute Nucleated RBC 0.00 x10^3/uL Nucleated RBC % 0.0 /100WBC Sodium 139 (135-145) mmol/L Potassium 3.3 L (3.5-4.5) mmol/L Chloride 110 (101-111) mmol/L Carbon Dioxide 24 (21-32) mmol/L Anion Gap 5.0 L (6-13) BUN 8 (6-20) mg/dL Creatinine 0.6 (0.6-1.3) mg/dL Estimated GFR (MDRD) 145 (>89) Glucose 94 (74-104) mg/dL Calcium 8.1 L (8.5-10.3) mg/dL Phosphorus 3.5 (2.5-5.0) mg/dL Magnesium 1.6 L (1.7-2.3) mg/dL ABX Reporting Has patient been on IV antibiotics over the past 48 hours?: No Sepsis Event Note (H) - Evaluation Current Stage of Sepsis: Ruled out (did not meet SIRS criteria on admission) Assessment/Plan - Problem List (1) Delirium due to another medical condition, persistent, hyperactive Impression: - At this point I feel that the patient has undiagnosed personality disorder - Patient was initially admitted for withdrawl from alcohol, fentanyl, and methamphetmines. Today is day 6 of withdrawl. The patient is medically stable. At this point, today is day 2 of personality disorder. There are periods of calmness and screaming, kicking, and yelling. This morning patient was hitting his head on the side of the bed stating "I am suicidal". We are trying to manage his behavior and medication so he can be calm enough to be discharged to a psych facility - Patient received 1 dose of Suboxone yesterday 04/20/24 - Today he displays waves of calm and agitation - I will consult psychiatry today to reconsult on what the next steps should be - I will work with the nurses to have the patient try to get up and sit on the edge of the bed to regain his strength and ultimately be able to walk (2) Facial cellulitis Impression: - Following surgical cultures, which are send out lab - Show strep pyogenes as well as mixed skin alessandra. - He completed 5 days of Unasyn - switched him over to PO Augmentin yesterday. The oral maxillofacial surgeon wants to continue for 7 days after discharge. - Continue PO Augmentin - Leukocytosis resolved - Oral maxillofacial surgery consulted by prior provider, Janelle drain removed 04/15/2024 - Per surgery, no indication for follow-up CT (3) Hypokalemia Impression: - Today patient's lab indicated a potassium value of 3.3 - it has decreased from yesterday at which it was 3.8 Laboratory Tests 04/18/24 04/19/24 04/20/24 04:47 05:37 05:15 Potassium 3.9 3.8 3.3 L - 20 meq PO Q2H potassium has been ordered by . It is set to be stopped at 10am today after 2 doses. I will draw his labs at noon to reasses his potassium levels (4) Dental infection Impression: - Continue with PO Augmentin - Oromaxiofacial surgery really feels that this is more facial cellulitis than a dental infection. He is carefully examined the gums, the tooth, radiology a nddoes not feel that he has a dental infection - Pain management with scheduled Tylenol, As needed Dilaudid
--- NOTE | 2024-04-20 09:55 | PROVIDER PROGRESS NOTE ---
Restraint [id number] - Immediate Situation Face to Face Evaluation Date: 04/20/24 Face to Face Evaluation Time: 09:15 Restraint Classification: Violent, Physical - Locked Restraint - Patient's Reaction & Behaviors Safety: Physically unsafe, Non-compliant (not follwoing commands) Verbal: Screaming/Yelling (also says he is suicidal and wants to kill himself) Harm: Actual harm to self, Actual harm to others Physical: Aggressive behavior, Fighting restraints, Punching, Kicking, Beating on the door/wall (softly beating the railing with his head) Other: Disruption of therapy, Attempting removal of medically necessary device(s) - Behavioral Condition Attitude: Other (angry, wants out) Behavior: Uncooperative, Belligerent, Agitated Orientation: Person, Place, Situation Mood: Angry - Evaluation Current Medical Condition Relating to Need for Restraint: initial problem of fentanyl/alcohol/methamphetamine withdrawal has resolved. There are no acute medical problems now personality disorder, undiagnosed, is apparent with manifestation of anger, yelling, kicking, swinging at nurses,. These are outburst. Intermixed with episodes of quiet and calm. Also now stating that he wants to kill himself and is softly beating his head against the rails. Pertinent History/Illicit Drugs/Medications/Results: Polysubstance abuse call, heroin, amphetamines - Plan Need to Initiate/Renew Violent or Chemical Restraint: We did try soft restraints yesterday but those were unsuccessful when he climbed out of bed and was swinging at the nurse. He went back into 4 point restraints. He stayed in 4 point restraints till this morning and I am de- escalating to 2 point restraints for only the hands. He says that he will behave and he will not use his legs to kick at me or the nurses. I explained to him that if he can stay calm for the next 4 hours I will remove the leather upper restraints and changed to soft restraints. I have asked him to cooperate with our ability to try and get him out of bed as well.
[2024-04-20 13:09] VITALS: O2SAT 99
[2024-04-20 17:19] VITALS: BP 102/72
--- NOTE | 2024-04-20 20:06 | DISCHARGE SUMMARY ---
"Discharge Summary Admit Date: 04/14/24 Discharge Date: 04/20/24 Discharging Provider: Reena Crockett MD Primary Care Provider: none Code Status: Attempt Resuscitation Condition at Discharge: Fair - DIAGNOSES Discharge Diagnoses with Status of Each Condition: 1. Facial cellulitis 2. Fall, multiple 3. Polysubstance withdrawal (alcohol/fentanyl/methamphetamines) 4. Delirium due to another medical condition, persistent, hyperactive 5. Hypokalemia, hyponatremia 6. Unspecified personality disorder - HPI History of Present Illness: 44M p/w right sided face swelling and redness and pain. Patient reports sxs started 4 days ago with facial pain. He noted subsequent redness and swelling. Pain spread to his teeth. No pain with swallowing. No SOB. He skateboards and had fallen couple of time a week ago however no known over injury to the face. No other reported trauma. He has dental pain but on the left side of his teeth and had seen a dentist a month ago and was told he need a root canal. He was not told he had any active issues with his teeth on the right side. No fever. Positive chills. No cough. No runny nose. No chest pain. No SOB. No palpitation. No n/v/d. No rash. ED staff spoke with OMFS who saw the patient at bedside and I&D and sent fluid for culture. OMFS reports getting minor serosanguinous fluid. OMFS does not think infection originated from teeth. History - Past Medical History GI: reports: Hepatitis, Other MRSA Hx?: No - Past Surgical History Ortho: reports: Other - CONSULTS | PROCEDURES Consultations: [facility] Procedures: Soft tissue neck CT with marked soft tissue swelling of the right face without drainable abscess. Reactive bilateral cervical chain lymph nodes. Extensive dental caries and left greater than right periapical lucencies. Aerobic and anaerobic cultures of the head showing strep pyogenes, mixed skin alessandra Incision and drainage of right temporal region with oral maxillofacial surgery, Uli Lepe - HOSPITAL COURSE Hospital Course: Camila was a very difficult case to handle for our critical access hospital that has minimal resources for patients who have such severe mental illness. Initially admitted for facial cellulitis that we thought might be an abscess. CT did not have drainable areas and oral maxillofacial surgery was consulted. They did incision and debridement and put in a [place] drain. There was not really significant drain manage and the tube was pulled. Cultures did show strep pyogenes. He was initially on IV antibiotics and then transition to oral antibiotics. We Alsohandled his withdrawal of presumed alcohol, fentanyl and methamphetamines. He was in the ICU with one-to-one care and on high doses of benzodiazepines, occasional antipsychotics, and Precedex drip. At 1 point he was on 90 mg of Ativan. After a few days, his vitals stabilized with no tachycardia no diaphoresis no tremulousness. we felt that he was stable from a medical problemperspective but he continued to have intense burst of yelling, screaming, kicking even with sedation. A telepsych consult was obtained to help us. Psychiatry felt that he may be having this inhibition from such high doses of benzodiazepine and asked us to stop the benzodiazepines as well as the Haldol, and try Suboxone to see if he is craving for fentanyl was the problem and causing his emotional lability. While he became more a more alert, and more a more verbal, his emotional lability continued. At 1 point we had him in 4 point locked restraints. On the day of discharge we were de-escalating the locked restraints. He went from 4 point locked restraints, to 2 point locked restraints to the upper extremity, to a change of soft upper extremity restraints. He would have outbursts of yelling, pushing at the RNs, but altern ating with compliance with suggestions and verbal prompts. He kept on stating that he was suicidal, but did not have a plan. He always feels like he wants to hurt himself on a daily basis but it is against his mu-ism to do so. I am the nurses asked him to please cooperate with regards to feeding himself, and not being so physically aggressive. He would be good for an hour or 2 and then start all over again. We also explained that he needed to show us that he was ambulatory. And he was very good about doing a lap around MedSurg, using his walker, and following instructions. I called on the phone for a DCR evaluation in order to evaluate his thought process and to see if he should be detained or discharged. As I was speaking to the DCR, the patient then began getting dressed and tried to leave. Nursing felt this was an AMA and was trying to get him to sign AMA paperwork. DCR states that once we request them to be dispatched, we have at least 6 hours of doing was necessary to detain him. However, at that very moment of conversation in my office, the patient left out the back door ICU of the hospital. Police brought him back to our emergency room. DCR was on her way. He then left the emergency room again and is now back at the [facility] by the time she arrived. DCR is trying to decide if this patient is a grave danger to himself and whether she should call the police to bring him back or should she attempt to make contact tomorrow. However this patient is known substance abuser and would be at risk for overdosing on his usual substances. Nursing and the DCR have informed me that they have kept his and his mother updated. Today was another continuous bedside evaluation of this patient over multiple, multiple times. An hour and a half was spent speaking to him, prompting him, and trying to get him to calm down. Another 20 minutes was spent going over this with the DCR. - ALLERGIES Allergies/Adverse Reactions: Allergies Allergy/AdvReac Type Severity Reaction Status Date / Time No Known Drug Allergies Allergy Verified 04/14/24 17:58 - MEDICATIONS Home Medications: Ambulatory Orders Medication Instructions Recorded Confirmed Methadone [Methadone Hcl] 30 mg PO DAILY 04/16/24 04/16/24 - LABS Result Diagrams: 04/20/24 05:15 04/20/24 05:15 - SEPSIS Current Stage of Sepsis: Ruled out (did not meet SIRS criteria on admission)"
== END 2024-04-20 17:58 | disposition left against medical advice (07) | DRG 894 ==
LOC: ED 17:51 → MS2 22:12 → ICU 04-16 07:21 → OBSVTOIN 04-16 10:08
PROVIDERS: ADMIT Internal Medicine; ATTEND Internal Medicine